=== PATIENT | male | born 1965 | race Caucasian/White ===

== ENCOUNTER 2018-09-19 10:03 | Observation (INO) | payer MEDICAID, SELFPAY ==
[2018-09-19] VITALS (7 sets, daily range): BP systolic 127–161; BP diastolic 85–115; PULSE 79–101; RESP 16–28; TEMP 36.7–37.3; O2SAT 93–98
--- NOTE | 2018-09-19 09:50 | W.ED.GENAD ---
Discharge Plan Discharge Details Chief Complaint: GenMedical Admit Date/Time: 09/19/18 11:57 Admit Provider: Gregoria Manrique Attending Provider: Gregoria Manrique Primary Care Provider: Abelardo Zavala ED Provider: Elizabeth Felix Medical Decision Making Patient is a 53 year old male, brought in via EMS, with c/c of esophageal FB. States that it began last night and was exacerbated this morning after taking a large ibuprofen tablet. This was one hour prior to arrival. Since then, he has had persistent FB sensation and difficulty drinking. Patient is an active smoker, has been a heavy smoker for several years. He states that this issue with swallowing has been progressively been more frequent and bothersome over the past few years. No pain at baseline. Patient has never had this evaluated when not actively having difficulty with FB. Does not have a PCP, have asked for long term care pharmacist to arrange for PCP. Patient also endorsing pain on the right flank, worse with rotatioinal movements. States that the pain migrated to thsi area. Initially began across entire chest 3 weeks ago, a few days later moved to the abdomen then to the right flank. Not worse with food. No pain at rest. No rash. No dysurea or changes in urinary habits. On exam, patient appears anxious. He is occasionally spitting into emesis bag. He is speaking in full sentences with no evidence of respiratory distress. EKG reviewed by Dr. Whittington, NSR rate 96 with no ischemic changes noted. Attempted Effervecent treatment for FB. Discussed risks/benefits of treatment with the patient. This was unsuccessful. Patient had difficulty with the instructions and sounds to have actually held this in his mouth rather than trying to swallow. Spit out mixture. Patient still feels symptomatic. Patient given 1mg IV glucagon without success. Consulted with Dr. Manrique who will bring patient to OR for EGD. Labs reviewed, troponin stil pending. Signfiicant for elevated AST and ALT. UA pending. Dr. Manrique is wondering if the elevated liver enzymes are associated with the right sided back pain, questioning if this may be secondary to gallbladder disease. She is planning for f/u and likely arrange for outpatient US. Patient is not having any RUQ pain at this time. Negative [place]. Troponin <0.05. UA not infected. Patient brought to the OR in stable condiition. HPI General Mode of arrival: EMS. Date/Time Provider Initiated Documentation: 09/19/18 10:08. Limitations to Documentation: no limitations. Information obtained by: patient and RN notes reviewed. HPI Narrative: Patient is a 53 year old male with hx of emphasema, active smoker, presenting today with c/c of FB in throat. States that he choked last night on hamburger. [place] that it had mostly cleared. Took Ibuprofen this morning and felt that the pill then became lodged. Called EMS as he was unable to drink water. Patient reports that this happens frequently. Has approximately 3 choking episodes a week. Reprots that he had to have EGD for food bolus, reports it was completed within the past 5 years. Has been able to speak in full sentences. Denies SOB or difficulty breathing. Patient reports that prior to the pill becoming lodged, he was thinking of going to the ER anyway secondary to pain that he has had for the past 3 weeks. Reprots that 3 weeks ago he began having CP that then migrated to his abdomen and then further migrated to his right flank. Is only endorsing right flank pain at this time. States that it is worse with rotational movement. Denies any trauma. Pain is not exertional. denies dyspnea. No hx of heart disease. No change in bowel or bladder habits. No fevers/chills. No dysurea. Denies penile discharge, denies testicular pain. Has not had any CP sincie initial pain 3 weeks ago, pain is not exertional. No cardiac history. Related Data Home Medications Medication Instructions Recorded Confirmed cyclobenzaprine 10 mg PO Q8H PRN #15 tab 07/12/16 ibuprofen 800 mg PO Q8H PRN #15 tablet 07/12/16 Previous Rx's Medication Instructions Recorded cyclobenzaprine 10 mg PO Q8H PRN #15 tab 07/12/16 ibuprofen 800 mg PO Q8H PRN #15 tablet 07/12/16 Allergies Allergy/AdvReac Type Severity Reaction Status Date / Time No Known Allergies Allergy Unverified 07/12/16 10:24 Review of Systems Constitutional Reports as per HPI, Denies chills, Denies fever(s), Denies headache(s), Denies lethargy and Denies poor appetite Eyes Denies change in vision ENT Denies change in voice, Reports dysphagia (FB), Denies dizziness, Denies headache(s), Denies neck mass, Denies neck pain, Denies sore throat and Denies throat swelling Cardiovascular Reports as per HPI, Denies chest pain, Denies chest pain at rest, Denies chest pain with activity, Denies diaphoresis, Denies leg edema, Denies lightheadedness, Denies radiating jaw, neck or arm pain, Denies palpitations, Denies dyspnea and Denies dyspnea on exertion Respiratory Reports as per HPI, Denies chest congestion, Denies cough, Denies pain on inspiration, Denies pain with cough, Denies dyspnea, Denies dyspnea on exertion and Denies wheezing Gastrointestinal Reports as per HPI, Denies abdominal pain, Reports dysphagia (FB), Denies diarrhea, Denies nausea and Denies vomiting Genitourinary Denies system reviewed and no additional complaints, except as docu (denies change in urinary habits) Musculoskeletal Reports as per HPI, Reports back pain (right sided flank pain) and Denies neck pain Integumentary/Breasts Reports as per HPI and Denies rash Neurologic Reports as per HPI, Denies dizziness and Denies headache(s) Endocrine Denies palpitations Allergic/Immunologic Denies throat swelling and Denies wheezing PFSH Medical History Elevated LFTs (Acute) Esophageal foreign body (Acute) Fracture (healed) treatment follow-up (Acute) GERD (gastroesophageal reflux disease) (Chronic) Smoker in home (Acute) Social History Smoking/Tobacco Use Status: Current every day Alcohol Intake: current Alcohol Intake frequency: a few times a week Drug use: Never Do you feel safe in your relationship?: Yes Exam Const General: cooperative, healthy appearing, no acute distress, well developed and anxious Nutritional Appearance: average body habitus and well nourished Orientation: alert, awake and oriented x3 HENMT Head: normal to inspection Ears: hearing grossly normal bilaterally Face and sinus: normal facial exam and face symmetric Mouth: oral mucosae normal, lip normal, tongue normal, oropharynx normal, moist mucous membranes, no audible dysphonia, no drooling, no muffled voice, no trismus and No restricted motion Teeth and gingiva: dentition normal and gingiva normal Throat: posterior oropharynx normal, tonsils normal and uvula midline Neck Neck: normal visual inspection, full ROM, no lymphadenopathy, no meningeal signs, trachea midline, supple, no anterior neck swelling, nontender and no tracheal deviation Chest Chest: normal inspection of the chest, normal palpation of entire chest wall and no crepitus Resp Effort & Inspection: normal respiratory effort, able to speak in complete sentences and no respiratory distress Auscultation: clear to auscultation bilaterally, no rales, no rhonchi and no wheezes Cardio Rate: regular rate Rhythm: regular rhythm Heart Sounds: S1 normal and S2 normal GI Inspection: normal to inspection, no edema and non-distended Palpation: soft, no hepatosplenomegaly, not firm, no guarding, not rigid and nontender Auscultation: normal bowel sounds Back/Spine/Pelvis Back: CVA tenderness (right) Thoracic/Lumbar Spine: thoracic and lumbar spine normal to inspection Skin General skin exam: no rashes or lesions noted Trauma: no lacerations or abrasions Neuro General: alert, awake and oriented x3 Cognition: normal cognition Speech: speech normal Gait: normal gait Extrem General: normal to inspection, normal capillary refill, no pedal edema, no calf tenderness and normal gait Psych Appearance: grossly normal and well kempt Mental Status: mental status grossly normal Speech and Movement: speech and movement normal
[2018-09-19 10:17] LABS: Abs Immature Grans 0.01 k/cumm (0.0-0.09); Absolute Basophil Count 0.07 k/cumm (0.0-0.2); Absolute Eosinophil Count 0.04 k/cumm (0.0-0.7); Absolute Lymphocyte Count 1.01 k/cumm (1.2-3.4); Absolute Monocyte Count 0.72 k/cumm (0.11-0.7); Absolute Neutrophil Count 4.22 k/cumm (1.2-6.7); Basophils % 1.2; Eosinophils % 0.7; HCT 48.2 % (40.0-50.0); Immature Grans % 0.2; Lymphocytes % 16.6; Mean Corp. HGB Concentration 35.3 g/dL (32.0-36.0); Mean Corpuscular Hemoglobin 33.3 pg (27.0-33.0); Mean Corpuscular Volume 94.5 fL (80-95); Mean Platelet Volume 9.6 fL (8.0-11.0); Monocytes % 11.9; Neutrophils % 69.4; Platelet Count 287 x1000/uL (130-400); White Blood Cell Count 6.07 k/cumm (4.4-10.8)
[2018-09-19 10:30] LABS: ALT 135 U/L (12-78); AST 144 U/L (15-37); Albumin 4.7 g/dL (3.4-5.0); Alkaline Phosphatase 95 U/L (46-116); Anion Gap 18.6 mmol/L (3-11); BUN 8 mg/dL (7-18); Bilirubin, Total 0.7 mg/dL (0.2-1.0); CO2 21.4 mmol/L (21.0-32.0); CREATININE 0.93 mg/dL (0.70-1.30); Calcium 9.6 mg/dL (8.5-10.1); Chloride 99 mmol/L (98-107); Glucose 96 mg/dL (70-100); Lipase 114 U/L (73-393); Potassium 4.3 mmol/L (3.5-5.1); Sodium 139 mmol/L (136-145); Total Protein 8.5 g/dL (6.4-8.2)
[2018-09-19] MEDS: Normal Saline 1,000 ML 1000 ML IV (10:33)
--- NOTE | 2018-09-19 10:35 | W.PM.HP.N ---
Date of service: 09/19/18 Time of Service: 10:35 Assessment and Plan (1) Esophageal foreign body: Current visit: No Status: Acute OR for EGD . Will plan on doing general for airway protection risks: bleeding/infection/perf/asp/ anesthesia He does have R back pain and elevated LFT's. He denies ETOH and may have some liver vs gallbladder issues- will address this as oupt. (2) Elevated LFTs: Current visit: No Status: Acute History of Present Illness Chief Complaint: esophageal foreign body Consults Consult date: 09/19/18 Requesting physician: Elizabeth Felix Narrative: pt was eating hamburger last pm and got stuck in throat. Woke up this am and still having pain in throat and back pain. Took ibuprofen. Now he can't swallow secretions. Has had this happen before adn had to have egd and foreign body removed. Pt gives s/s of choking and swallowing issues. No hx of neck surgery or radiation. no recent wt loss. EKG today was nl. He does not see a doctor or take any home meds. has had mult ortho surgeries for fracture sustained in a fall. He had no problems w/ anesthesia. pt denies etoh/drugs. 1ppd smoker. Review of Systems Review of Systems All systems reviewed & are unremarkable except as noted in HPI and below Constitutional Reports as per HPI, Reports system reviewed and no additional complaints, except as docu, Denies anorexia, Denies chills, Denies difficulty sleeping, Denies fatigue, Denies headache(s), Denies lethargy, Denies malaise, Denies poor appetite, Denies weakness, Denies weight gain and Denies weight loss Comments: cant swallow secretions. chest/back pain. but think this is due to foreign body and esohpagel pain not cardiac. EKG is neg. Eyes Reports as per HPI, Reports system reviewed and no additional complaints, except as docu and Denies change in vision ENT Reports system reviewed and no additional complaints, except as docu, Reports as per HPI, Denies change in voice, Denies dental pain, Denies dysphagia, Denies dizziness, Denies facial pain, Denies headache(s) and Denies odynophagia Cardiovascular Reports as per HPI, Reports system reviewed and no additional complaints, except as docu, Denies chest pain, Denies chest pain with activity, Denies syncope, Denies leg edema and Denies dyspnea Respiratory Reports as per HPI, Reports system reviewed and no additional complaints, except as docu, Denies chest congestion, Denies cough, Denies pain with cough and Denies dyspnea Gastrointestinal Reports as per HPI, Reports system reviewed and no additional complaints, except as docu, Denies abdominal pain, Denies bloating, Denies change in bowel habits, Denies change in stool character, Denies constipation, Denies cramping, Denies dysphagia, Denies early satiety, Denies heartburn, Denies diarrhea, Denies nausea, Denies odynophagia and Denies vomiting Comments: pt not able to swalloe secretions. not vomting or bringin up blood. no hx of head/ neck surgery or xrt. hx of choking on food. mult R flank pain Genitourinary Reports system reviewed and no additional complaints, except as docu Musculoskeletal Reports system reviewed and no additional complaints, except as docu, Reports as per HPI, Denies abnormal gait, Denies arthralgias and Denies muscle weakness Integumentary/Breasts Reports system reviewed and no additional complaints, except as docu, Reports as per HPI, Denies changing lesions, Denies new lesions and Denies jaundice Comments: mult tatoos and piercings. Neurologic Reports system reviewed and no additional complaints, except as docu, Reports as per HPI, Denies abnormal speech, Denies abnormal gait, Denies dizziness, Denies syncope, Denies headache(s), Denies memory loss and Denies weakness Psychiatric Reports system reviewed and no additional complaints, except as docu, Reports as per HPI, Denies change in appetite and Denies memory loss Endocrine Denies fatigue, Denies polydipsia and Denies polyuria Hematologic/Lymphatic Reports system reviewed and no additional complaints, except as docu, Denies easy bleeding and Denies easy bruising Allergic/Immunologic Denies system reviewed and no additional complaints, except as docu, Reports as per HPI and Denies urticaria PFSH Medical History Elevated LFTs (Acute) Esophageal foreign body (Acute) Fracture (healed) treatment follow-up (Acute) GERD (gastroesophageal reflux disease) (Chronic) Smoker in home (Acute) Social History Smoking/Tobacco Use Status: Current every day Alcohol Intake: current Alcohol Intake frequency: a few times a week Drug use: Never Do you feel safe in your relationship?: Yes Meds Home Medications Medication Instructions Recorded Confirmed Type cyclobenzaprine 10 mg PO Q8H PRN #15 tab 07/12/16 Rx ibuprofen 800 mg PO Q8H PRN #15 tablet 07/12/16 Rx Allergies Allergy/AdvReac Type Severity Reaction Status Date / Time No Known Allergies Allergy Unverified 07/12/16 10:24 Exam Const General: cooperative, healthy appearing, comfortable, no acute distress, well developed and well groomed Nutritional Appearance: average body habitus and well nourished Orientation: alert, awake and oriented x3 HENMT Head: normal to inspection, normocephalic and atraumatic Ears: hearing grossly normal bilaterally and external ears normal General nose exam: external nose normal Face and sinus: normal facial exam and sinuses nontender Mouth: oral mucosae normal, lip normal, tongue normal and moist mucous membranes Teeth and gingiva: dentition normal Eyes General: appearance normal, both eyes and all related structures Conjunctivae: conjunctivae normal Sclera: sclerae normal Pupils: PERRL Neck Neck: normal visual inspection and full ROM Chest Chest: normal inspection of the chest Resp Effort & Inspection: normal respiratory effort, able to speak in complete sentences, no cough, no nasal flaring, not tachypneic and no use of accessory muscles Auscultation: clear to auscultation bilaterally, no rales, no rhonchi and no wheezes Cardio Jugular venous pressure: no JVD Rate: regular rate Rhythm: regular rhythm GI Inspection: normal to inspection, no edema and non-distended Palpation: soft, no masses, nontender and No ascites Auscultation: normal bowel sounds Other: mulr R flank pain. no RUQ pain. Skin General skin exam: no rashes or lesions noted Trauma: no lacerations or abrasions Neuro General: alert, oriented x3, oriented, gait normal, moves all extremities, no focal motor deficits and CN's II-XI intact bilaterally Cognition: normal cognition Speech: speech normal Gait: normal gait Motor: muscle tone normal throughout Extrem General: normal to inspection, full ROM and no clubbing, cyanosis or edema Psych Appearance: grossly normal and well kempt Mental Status: mental status grossly normal Speech and Movement: speech and movement normal Affect: normal affect Results Labs : 09/19/18 10:07 09/19/18 10:07 Laboratory Results - last 24 hr 09/19/18 10:07 WBC 6.07 RBC 5.10 Hgb 17.0 Hct 48.2 MCV 94.5 MCH 33.3 H MCHC 35.3 RDW 13.0 Plt Count 287 MPV 9.6 Immature Gran % 0.2 Neutrophils % 69.4 Lymphocytes % 16.6 Monocytes % 11.9 Eosinophils % 0.7 Basophils % 1.2 Absolute Neutrophils 4.22 Absolute Lymphocytes 1.01 L Absolute Monocytes 0.72 H Absolute Eosinophils 0.04 Absolute Basophils 0.07 Last Vital Signs Temp 36.9 C 09/19/18 09:54 Pulse 101 H 09/19/18 09:54 Resp 16 09/19/18 09:54 BP 153/101 H 09/19/18 09:54
[2018-09-19 11:11] LABS: Bilirubin Small (Negative); Blood Negative (Negative); Clarity Clear (Clear); Glucose Negative (Negative); Ketones 15 mg/dL (Negative); Leukocyte Esterase Negative (Negative); Nitrite Negative (Negative); Specific Gravity 1.025 (1.005-1.025); pH 5.5 (5-8)
--- NOTE | 2018-09-19 11:12 | NUR.NOTE ---
pt taken to or by this nurse sbar at bedside to or nurse Nursing Note:
[2018-09-19 11:22] LABS: Bacteria Rare HPF (Negative); Crystals Negative HPF (Negative); Epithelial Cells Rare HPF (Negative); Mucus Moderate (Negative); RBC Negative (0-2); WBC 0-2 HPF (0-5)
[2018-09-19 11:23] LABS: C & S Indicated? No; Casts 10-20 Hyaline LPF (Negative)
[2018-09-19 11:24] LABS: Troponin I < 0.05 ng/mL (0.00-0.06)
--- NOTE | 2018-09-19 11:45 | W.PM.ENDDOP ---
Date of service: 09/19/18 Time of Service: 11:45 Endoscopy Report DATE OF PROCEDURE: 09/19/18 PRE-OP DIAGNOSIS: esoph foreign body POST-OP DIAGNOSIS: other (chronic gerd. upper esophageal stricture ) PROCEDURE: EGD adn esophageal foreign body (pill) removal SURGEON: Gregoria Manrique ANESTHESIA: GETGil ESTIMATED BLOOD LOSS: 0 PATHOLOGY: none sent COMPLICATIONS: None DISPOSITION: PACU INDICATIONS: esoph foreing body PROCEDURE DESCRIPTION: egd
[2018-09-19] MEDS: Pantoprazole 40 MG VIAL IVP (11:55)
[2018-09-19] MEDS: Dexamethasone 10 MG/ML VIAL IVP (12:08)
[2018-09-19] MEDS: Normal Saline 1,000 ML 80 ML IV (12:22)
[2018-09-19] MEDS: Omnipaque 350 MG/ML 100 ML BTL IJ (12:47)
--- NOTE | 2018-09-19 12:53 | DI.CT_ITS ---
SYMPTOMS/DIAGNOSIS: ESOPHAGEAL STRICTURE, H/O SMOKING AND SWALLOWING PROBLEMS CHEST CT: CT examination of the chest was performed with a bolus infusion of 100 cc of Omnipaque 350. Images obtained through the upper abdomen show severe hepatic steatosis. Spleen as visualized is unremarkable in appearance, as are the pancreas, adrenals and kidneys although the inferior portions of these organs are not included on the imaging field. There is a 6 mm in diameter well-circumscribed noncalcified intrapulmonary nodule at the left lung base medially. No other pulmonary nodule, mass or consolidation is seen. There are some subpleural blebs in the lung apices. Tracheobronchial tree appears intact. No mediastinal or hilar adenopathy. Esophagus is unremarkable in appearance throughout its thoracic course. No pleural effusion or pleural-based mass. CONCLUSION: 1. Hepatic steatosis. 2. Incidental 6 mm left basilar pulmonary nodule; follow-up chest CT suggested in six months. CERVICAL CT: CT examination of the cervical region was performed in conjunction with the chest CT with intravenous infusion of 100 cc of Omnipaque 350. No cervical mass or adenopathy seen. Vascular structures appear intact. Visualized brain and intracranial vasculature are unremarkable. Orbital structures appear intact. Temporal bone structures appear intact. Mild mucoperiosteal thickening noted in the maxillary antra. Pharyngeal structures are unremarkable. Superior laryngeal structures appear intact. At the level of the supraglottic larynx, there is a nearly obliterated lumen; no gross associated mass or adenopathy at this level. Vocal cord level appears grossly unremarkable. Epiglottis and aryepiglottic folds appear normal. CONCLUSION: Narrowing of supraglottic larynx of uncertain etiology. No gross mass identified; however, laryngoscopy suggested to evaluate for stricture or mucosal lesion.
--- NOTE | 2018-09-19 13:36 | DI.US_ITS ---
SYMPTOMS/DIAGNOSIS: RIGHT UPPER QUADRANT PAIN, RIGHT LOWER POSTERIOR BACK PAIN, ELEVATED LFTS ABDOMINAL ULTRASOUND: Today's CT showed marked hepatic steatosis and there is mildly echogenic and mildly heterogenous appearance of hepatic parenchyma without evidence of a focal lesion. The liver is mildly enlarged. There is no evidence of cholelithiasis. No gallbladder wall thickening is seen. No biliary dilatation is seen. The kidneys appear normal with no evidence of renal mass, hydronephrosis or nephrolithiasis. Common hepatic duct is at the upper limits of normal at 8 mm. The pancreas poorly visualized. Abdominal aorta and IVC are of normal diameter. CONCLUSION: 1. Hepatic steatosis. 2. No evidence of cholelithiasis. 3. Question mild dilatation of common hepatic duct; if there is clinical suspicion of common duct obstruction or elevated bilirubin, additional evaluation with MRCP could be obtained to evaluate the possibility of obstructing lesion.
[2018-09-19] MEDS: Ketorolac 15 MG/ML VIAL IVP (15:03)
[2018-09-19] MEDS: Normal Saline Flush 10 ML SYR IVP ×2 (15:03→16:38)
[2018-09-19] MEDS: MORPHine 2 MG/ML SYR IVP (16:37)
[2018-09-19] MEDS: Sucralfate 1 GM TAB PO (16:37)
--- NOTE | 2018-09-19 19:02 | DSE_ITS ---
Date of service: 09/19/18 Time of Service: 19:02 DS: Diagnosis Discharge Diagnosis (1) Esophageal foreign body: Status: Acute (2) Elevated LFTs: Status: Acute Discharge Plan Disposition Patient Disposition: HOME Condition: Stable Discharge Details Chief Complaint: GenMedical Reason For Visit: ESOPH STRICTURE Admit Date/Time: 09/19/18 11:57 Admit Provider: Gregoria Manrique Attending Provider: Gregoria Manrique Primary Care Provider: Abelardo aZvala [facility]: pt came to ED w/ esophageal FB. He was found to have a ibuporfen tab in upper esoph. CT shows it is supraglotic. It is a signif stricture. He is sable to tolerate water/pudding. Home Meds and New Rx's Prescriptions: New sucralfate 100 mg/mL suspension 1 g PO AC & HS Qty: 100 RF: 0 sucralfate [Carafate] 100 mg/mL suspension 10 ml PO QID Qty: 420 RF: 0 Discontinued ibuprofen 800 MG tablet 800 mg PO Q8H PRN (Reason: Pain) Qty: 15 RF: 0 cyclobenzaprine 10 MG tablet 10 mg PO Q8H PRN (Reason: Muscle Spasm) Qty: 15 RF: 0 Discharge Instructions Additional Instructions: no pills! -use children tylenol elixer 20cc po 6hr prns back pain -full liquid diet. purreed/mashed foods. pudding/smoothie/mashed potatoes/pur eed food/baby food -activity as gautam -try to limit smoking/alcohol/caffeine intake -EGD and dilation next -return to ED if develop foreign body sensation in throat. Activity:: Activity as Tolerated Equipment/Supplies:: No Equipment Needed Diet:: purreed Exam Const General: cooperative, healthy appearing, comfortable, no acute distress, well developed and well groomed Nutritional Appearance: average body habitus and well nourished Orientation: alert, awake and oriented x3 HENMT Head: normal to inspection, normocephalic and atraumatic Ears: hearing grossly normal bilaterally and external ears normal General nose exam: external nose normal Face and sinus: normal facial exam and sinuses nontender Mouth: oral mucosae normal, lip normal, tongue normal and moist mucous membranes Teeth and gingiva: dentition normal Eyes General: appearance normal, both eyes and all related structures Conjunctivae: conjunctivae normal Sclera: sclerae normal Pupils: PERRL Neck Neck: normal visual inspection and full ROM Chest Chest: normal inspection of the chest Resp Effort & Inspection: normal respiratory effort, able to speak in complete sentences, no cough, no nasal flaring, not tachypneic and no use of accessory muscles Auscultation: clear to auscultation bilaterally, no rales, no rhonchi and no wheezes Cardio Jugular venous pressure: no JVD Rate: regular rate Rhythm: regular rhythm GI Inspection: normal to inspection, no edema and non-distended Palpation: soft, no masses, nontender and No ascites Auscultation: normal bowel sounds Skin General skin exam: no rashes or lesions noted Trauma: no lacerations or abrasions Neuro General: alert, oriented x3, oriented, gait normal, moves all extremities, no focal motor deficits and CN's II-XI intact bilaterally Cognition: normal cognition Speech: speech normal Gait: normal gait Motor: muscle tone normal throughout Extrem General: normal to inspection, full ROM and no clubbing, cyanosis or edema Psych Appearance: grossly normal and well kempt Mental Status: mental status grossly normal Speech and Movement: speech and movement normal Affect: normal affect DS: Data Vitals/I&O Vitals and I&O: Vital Signs Temperature 37.3 C 09/19/18 15:51 Temperature Source Tympanic 09/19/18 15:51 Pulse 79 09/19/18 15:51 Pulse Rhythm Regular 09/19/18 15:52 Respiratory Rate 18 09/19/18 15:51 Respiratory Effort Non-Labored 09/19/18 15:52 Respiratory Depth Normal 09/19/18 15:52 Respiratory Pattern Normal 09/19/18 15:52 Blood Pressure 157/90 H 09/19/18 15:51 Pulse Oximetry 96 09/19/18 15:51 Respiratory End-tidal CO2 30 09/19/18 12:05 Oxygen Delivery Method Room Air 09/19/18 15:51 Oxygen Flow Rate 0 09/19/18 15:51 Pain Level 8 09/19/18 16:37 Intake & Output 09/18/18 09/19/18 09/19/18 23:59 11:59 23:59 Intake Total 300 / 1476 1176 / 1476 Balance 300 / 1476 1176 / 1476 Weight 77.111 kg Intake: IV 300 / 376 76 / 376 Oral 1100 / 1100 Other: Urine Color Yellow Urine Appearance Clear Urine Odor Normal Comment Pt voiding ad mejia in toilet; denies sx. Emesis Description None None Voiding Methods Toilet Labs on day of discharge: Labs from last 24 hours 09/19/18 09/19/18 09/19/18 11:02 10:07 10:07 WBC 6.07 RBC 5.10 Hgb 17.0 Hct 48.2 MCV 94.5 MCH 33.3 H MCHC 35.3 RDW 13.0 Plt Count 287 MPV 9.6 Immature Gran % 0.2 Neutrophils % 69.4 Lymphocytes % 16.6 Monocytes % 11.9 Eosinophils % 0.7 Basophils % 1.2 Absolute Neutrophils 4.22 Absolute Lymphocytes 1.01 L Absolute Monocytes 0.72 H Absolute Eosinophils 0.04 Absolute Basophils 0.07 Sodium Potassium Chloride Carbon Dioxide Anion Gap BUN Creatinine Estimated GFR/1.73 m2 Glucose Calcium Total Bilirubin AST ALT Alkaline Phosphatase Troponin I < 0.05 Total Protein Albumin Lipase Urine Color Faustina Urine Clarity Clear Urine pH 5.5 Ur Specific Pipestem 1.025 Urine Protein 30 H Urine Ketones 15 H Urine Blood Negative Urine Nitrite Negative Urine Bilirubin Small H Urine Urobilinogen 1.0 H Ur Leukocyte Esterase Negative Urine RBC Negative Urine WBC 0-2 Ur Epithelial Cells Rare Urine Crystals Negative Urine Bacteria Rare Urine Casts 10-20 hyaline Urine Mucus Moderate Ur Culture Indicated? No Urine Glucose Negative 09/19/18 10:07 WBC RBC Hgb Hct MCV MCH MCHC RDW Plt Count MPV Immature Gran % Neutrophils % Lymphocytes % Monocytes % Eosinophils % Basophils % Absolute Neutrophils Absolute Lymphocytes Absolute Monocytes Absolute Eosinophils Absolute Basophils Sodium 139 Potassium 4.3 Chloride 99 Carbon Dioxide 21.4 Anion Gap 18.6 H BUN 8 Creatinine 0.93 Estimated GFR/1.73 m2 >= 60.00 Glucose 96 Calcium 9.6 Total Bilirubin 0.7 AST 144 H ALT 135 H Alkaline Phosphatase 95 Troponin I Total Protein 8.5 H Albumin 4.7 Lipase 114 Urine Color Urine Clarity Urine pH Ur Specific Pipestem Urine Protein Urine Ketones Urine Blood Urine Nitrite Urine Bilirubin Urine Urobilinogen Ur Leukocyte Esterase Urine RBC Urine WBC Ur Epithelial Cells Urine Crystals Urine Bacteria Urine Casts Urine Mucus Ur Culture Indicated? Urine Glucose PFSH Medical History Elevated LFTs (Acute) Esophageal foreign body (Acute) Fracture (healed) treatment follow-up (Acute) GERD (gastroesophageal reflux disease) (Chronic) Smoker in home (Acute) Social History Smoking/Tobacco Use Status: Current every day Alcohol Intake: current Alcohol Intake frequency: a few times a week Drug use: Never Do you feel safe in your relationship?: Yes
--- NOTE | 2018-09-22 10:58 | ENDO_ITS ---
DATE OF PROCEDURE: September 19, 2018 PREOPERATIVE DIAGNOSIS: Esophageal foreign body. POSTOPERATIVE DIAGNOSIS: Chronic esophageal reflux with esophagitis and upper esophageal stricture. SURGEON: Gregoria Manrique D.O. ANESTHESIA: General. ESTIMATED BLOOD LOSS: None. CONDITION: The patient tolerated the procedure well without complication. INDICATION FOR PROCEDURE: Mr. Leger is a 53-year-old male who presented to the E.R. with esophageal foreign body sensation and is unable to swallow his secretions. This has happened to him in the past. He is being taken for emergent endoscopy and foreign body removal. Informed consent was obtained explaining risks and benefits of the procedure including but not limited to bleeding, infection, perforation, aspiration and complications from the anesthesia. PROCEDURE DESCRIPTION: The patient was brought to the surgical suite and placed in the supine position. Anesthesia is administered per the Department of Anesthesia. A bite block is placed. A time-out is performed. The previously-lubricated Olympus scope is inserted into the pharynx and in the upper esophagus he does have what appears to be a tablet lodged in the upper esophagus. This is removed in piecemeal fashion and eventually it breaks up and we were able to wash it down. There is a tight stricture there and I am not able to pass the scope. his esophagus shows signs of chronic irritation and reflux, as well as acute inflammation. Biopsy is not taken of this area. The procedure is then abandoned. There are no signs of perforation. The patient tolerated the procedure well without complication and transferred to the recovery room in stable condition. He will be given IV Protonix and steroids and a CT scan will be ordered and we will see and evaluate his swallowing status later on this evening. Pt would prefer to go home today. Thank you for allowing me to participate in the care of this patient. cc: Abelardo Zavala M.D.
== END 2018-09-19 19:44 | disposition home or self-care (01) ==
LOC: ER 11:11 → SUR 11:13 → MS 13:33
PROVIDERS: Admitting Provider Surgery; Emergency Provider Physician Assistant; PCP Family Medicine; Visit Provider Surgery
PROC: 0DJ68ZZ Inspection of Stomach, Via Natural or Artificial Opening Endoscopic (ICD-10-PCS; CPT 43235; principal; 2018-09-19 10:15)
DX: T18.198A Other foreign object in esophagus causing other injury, initial encounter (principal); K22.2 Esophageal obstruction; K21.0 Gastro-esophageal reflux disease with esophagitis; R94.5 Abnormal results of liver function studies; F17.210 Nicotine dependence, cigarettes, uncomplicated
CPT/HCPCS: 43247; 36415; 70491; 80053; 83690; 93005; 96361; 96374; 99222; 99239; 99285; 71260; 76700; 81003; 81015; 84484; 85025; 93010; G0378; J1100; J1610; J1885; J2270; J2405; J3490

== ENCOUNTER 2018-09-24 06:05 | Day surgery (SDC) | payer MEDICAID, SELFPAY ==
[2018-09-24] VITALS (7 sets, daily range): BP systolic 107–136; BP diastolic 60–96; PULSE 59–90; RESP 15–25; TEMP 36.5–36.9; O2SAT 93–99
[2018-09-24] MEDS: Lactated Ringers 1,000 ML 80 ML IV (06:52)
--- NOTE | 2018-09-24 08:30 | STOM_PTH ---
PATIENT: Harjit Leger LOC: YE U#:[id number] AGE/SX: 53/M ROOM: RE09/24/[address]: Gregoria Manrique : 1965 BED: DIS: 09/24/2018 SPEC #: [id number] RECD: 09/24/18 12:37 STATUS: NEY REQ #: [id number] FARRAH: 09/24/18 08:[address]: Gregoria Manrique DEPT: Surgical Specimen RECD BY: Chela Tilley ENTERED: 09/24/18 12:38 SP TYPE: STOMACH OTHR DR: Abelardo Zavala MD Tissues: 1 - BIOPSY BOWEL 2 - STOMACH BIOPSY 3 - STOMACH BIOPSY 4 - ESOPHAGUS BIOPSY Procedures: GROSS AND MICRO LEVEL 4 Comments: [id number]
--- NOTE | 2018-09-24 08:49 | W.PM.DSUDISC ---
Discharge Plan Disposition Patient Disposition: HOME Condition: Good Discharge Details Attending Provider: Gregoria Manrique Primary Care Provider: Abelardo Zavala Home Meds and New Rx's Prescriptions: New Protonix [address] for susp in packet 40 mg PO DAILY Qty: 30 RF: 12 sucralfate [Carafate] 1 gram tablet 1 gm PO QACHS Qty: 120 RF: 12 Discontinued sucralfate [Carafate] 100 mg/mL suspension 10 ml PO QID Qty: 420 RF: 0 sucralfate [Carafate] 1 gram tablet 1 gm PO QACHS Qty: 30 RF: 0 Discharge Instructions Additional Instructions: Findings: severe gastritis/esophagitis esophageal stricture no asa/nsaids Continue with lifestyle modifications: no alcohol, tobacco products, Aspirin or NSAID's (ibuprofen, Motrin, Naprosyn, aleve, etc). Try to limit: soda pop/any carbonated beverages, caffeine (including tea & chocolate), and acidic foods, (tomatoes, citrus, onions, peppermints) spicy or fried/fatty foods. Do not lie down for 30 minutes after eating, and do not eat 2 hours prior to bedtime. Avoid wearing tight fitting clothing/ belts. Follow up: in 3 wks repeat dilation on Oct 23. Please call if you develop: fevers >101.5 Nausea or Vomiting Abdominal pain that is not transient DAY SURGERY UNIT POST COLONOSCOPY INSTRUCTIONS 1. Because there will be medication in your system for the next 24 hours, you may feel a little sleepy. Your coordination will be affected. Therefore: a. Do not drive or operate dangerous equipment for 24 hours. b. Do not drink alcohol beverages for 24 hours (not even beer). c. Plan to go home and rest for the day. 2. Generally there are no restrictions on your activity after a day or so has gone by, but you may feel a bit fatigued for a few days. 3 Liquids only for the next 24 hrs. Slowly work up to soft foods. 4. After surgery, you may feel pain or discomfort. This should be only transient, but if it persists please contact your doctor. 5. If there are any questions regarding the findings of your procedure, please feel free to contact your doctor. 6. If you are unable to contact your doctor with a problem, contact the hospital at [phone]. 7. Continue all your regular medications unless directed otherwise. I understand the above instructions and have no questions. Signature of Patient or Responsible Adult Escort Date/Time Name of Responsible Adult Escort Signature of Nurse Date/Time Stand Alone Forms: Mauro Templeton (DSU) Activity:: Activity as Tolerated Diet:: liquids only x 24 hrs. than soft/purreed diet Discharge Orders Discharge Orders: Discharge Order (Routine); Ordered 09/24/18 Ordered By: Gregoria Manrique DS: Diagnosis Discharge Diagnosis (1) Gastritis and gastroduodenitis: Status: Acute (2) Esophagitis determined by endoscopy: Status: Acute (3) Fatty liver: Status: Acute (4) Benign esophageal stricture: Status: Acute
--- NOTE | 2018-09-24 09:05 | W.PM.ENDDOP ---
Date of service: 09/24/18 Time of Service: 09:05 Endoscopy Report DATE OF PROCEDURE: 09/24/18 PRE-OP DIAGNOSIS: esophageal stricture POST-OP DIAGNOSIS: other (esophagitis/gastris/duodenitis) PROCEDURE: egd w/ Bx and dilation balloon SURGEON: Gregoria Manrique ANESTHESIA: GETGil ESTIMATED BLOOD LOSS: 2 PATHOLOGY: other COMPLICATIONS: None DISPOSITION: PACU INDICATIONS: E. stricture- symptomatic FINDINGS: stricture and severe gastritis PROCEDURE DESCRIPTION: dictated
--- NOTE | 2018-09-24 12:13 | ENDO_ITS ---
Date: September 24, 2018 PREOPERATIVE DIAGNOSIS: Esophageal stricture. POSTOPERATIVE DIAGNOSIS: Same. Esophagitis, gastritis and duodenitis. TITLE OF PROCEDURE: EGD with biopsy and esophageal dilation. ANESTHESIA: General. EBL: Less than 5 cc. COMPLICATIONS: None. INDICATIONS: Mr. Leger is a 53 y/o male who presented to the E.D. last week with esophageal foreign body. He is here today for follow up EGD and dilation. He still continues to have problems with dysphagia and choking and being intolerant of solid foods. He is seen in preop and consent obtained. Risks include bleeding, infection, perforation, aspiration, and complications from anesthesia. PROCEDURE: The patient is brought to the operative suite and placed in position. Anesthesia was administered per the director systems. He did receive IV Protonix and steroids. Time out was performed. The esophagoscope was lubricated and inserted through the oropharynx and I am able to cannulate into the upper esophagus. The scope was passed down into the esophagus. There is signs of chronic irritation and possible Sharif's at the GE junction. There is no hiatal hernia. The scope is passed into the stomach. He has signs of severe gastritis with pretty much diffuse redness and signs of generalized hemorrhage and old blood; no active bleeding. The pylorus is freely patent. The duodenum shows signs of chronic irritation as well in the first and second portions. Biopsy is taken of the duodenum, antrum, greater curvature and GE junction. All specimens are retrieved. No bleeding noted. He has no varices. Again, he does have a stricture in the pharynx/upper esophageal region. We were able to cannulate this today. There is no sign of any tumors. The 10-11-12 balloon is chosen for dilation. Two sequential dilations are done of 2 minutes each. The first at 10 mm and the second at 11 mm. There is no sign of any perforation post procedure. The scope is then withdrawn and the patient is woken up and taken to the recovery room. The patient has no complications. He will need to come in for serial dilations.
== END 2018-09-24 10:30 | disposition home or self-care (01) ==
PROVIDERS: PCP Family Medicine; Visit Provider Surgery
PROC: 0D758ZZ Dilation of Esophagus, Via Natural or Artificial Opening Endoscopic (ICD-10-PCS; CPT 43249; principal; 2018-09-24 08:00)
DX: K29.80 Duodenitis without bleeding (principal); K31.89 Other diseases of stomach and duodenum; K21.0 Gastro-esophageal reflux disease with esophagitis; K22.2 Esophageal obstruction
CPT/HCPCS: 43249; 43239; 88305; J2250

== ENCOUNTER 2018-10-16 06:53 | Day surgery (SDC) | payer MEDICAID, SELFPAY ==
[2018-10-16 07:28] VITALS: BP 130/67; PULSE 85; RESP 16; TEMP 36.6; O2SAT 98
--- NOTE | 2018-10-16 08:06 | NUR.NOTE ---
#20 in left hand started after right IV infiltrated. By Jose Corrales RN
[2018-10-16] MEDS: Lactated Ringers 1,000 ML 80 ML IV ×2 (08:10→09:17)
--- NOTE | 2018-10-16 09:49 | W.PM.ENDDOP ---
Date of service: 10/16/18 Time of Service: 09:49 Endoscopy Report DATE OF PROCEDURE: 10/16/18 PRE-OP DIAGNOSIS: esophageal stricture benign. secondary to gerd POST-OP DIAGNOSIS: same PROCEDURE: dilation up to 12F SURGEON: Gregoria Yeung ANESTHESIA: GETA ESTIMATED BLOOD LOSS: 0 PATHOLOGY: none sent COMPLICATIONS: None DISPOSITION: PACU PROCEDURE DESCRIPTION: INDICATIONS: Informed consent was obtained, explaining the risks and benefits of the procedure, including but not limited to bleeding, infection, perforation, aspiration, complications from the anesthesia. DESCRIPTION OF PROCEDURE: The patient was brought to the endoscopy suite and placed in left lateral decubitus position. IV and topical anesthesia was administered per the Department of Anesthesia, with constant monitoring of all vital signs. The previously lubricated Olympus scope was inserted into the orophayrnx and passed down into the esophagus. I am able to pass the scope throught the upper esophagus today. The scope is passed into the stomach and through the pylorus- which is freely patent. The duodenum is normal. The scope is passed into the second portion of the duodenum. Bile is visualized and appears grossly normal. There is still some mild changes from gastritis noted in the body of the stomach. (Pt is on medications at this time). However, his stomach is signif improved from his last scope. the upper esophagus is Dilated 10 -12F. The cords appeared normal. The patient tolerated the procedure well and transferred to the recovery room in stable condition. Apt was made for repeat ensodcopy and dilation in Nov. GREGORIA YEUNG D.O.
[2018-10-16 09:52] VITALS: BP 105/59; PULSE 61; RESP 21; TEMP 36.8; O2SAT 100
[2018-10-16 09:57] VITALS: BP 129/75; PULSE 71; RESP 17; TEMP 36.8; O2SAT 100
[2018-10-16 10:02] VITALS: BP 129/85; PULSE 68; RESP 13; TEMP 36.8; O2SAT 100
--- NOTE | 2018-10-16 10:10 | W.PM.DSUDISC ---
Discharge Plan Disposition Patient Disposition: HOME Condition: Good Discharge Details Reason For Visit: esphageal dilation Attending Provider: Gregoria Manrique Primary Care Provider: Abelardo Zavala Home Meds and New Rx's Prescriptions: Continued ranitidine HCl 15 mg/mL syrup 300 mg PO BID Qty: 480 RF: 12 sucralfate [Carafate] 1 gram tablet 1 gm PO QACHS Qty: 120 RF: 12 Discharge Instructions Additional Instructions: Findings: bengin stricture dilation completed Follow up:Repeat dilation in 4 wks time Continue medicatons and on soft diet Please call if you develop: fevers >101.5 Nausea or Vomiting Abdominal pain that is not transient DAY SURGERY UNIT POST COLONOSCOPY INSTRUCTIONS 1. Because there will be medication in your system for the next 24 hours, you may feel a little sleepy. Your coordination will be affected. Therefore: a. Do not drive or operate dangerous equipment for 24 hours. b. Do not drink alcohol beverages for 24 hours (not even beer). c. Plan to go home and rest for the day. 2. Generally there are no restrictions on your activity after a day or so has gone by, but you may feel a bit fatigued for a few days. 3 After you arrive home you may have a light meal and return to a normal diet as you can tolerate it without feeling sick to your stomach. 4. After surgery, you may feel pain or discomfort. This should be only transient, but if it persists please contact your doctor. 5. If there are any questions regarding the findings of your procedure, please feel free to contact your doctor. 6. If you are unable to contact your doctor with a problem, contact the hospital at [phone]. 7. Continue all your regular medications unless directed otherwise. I understand the above instructions and have no questions. Signature of Patient or Responsible Adult Escort Date/Time Name of Responsible Adult Escort Signature of Nurse Date/Time Activity:: no strenuous activity x 24 hrs Diet:: cl liq x 24 hrs. than resume soft diet Discharge Orders Discharge Orders: Discharge Order (Routine); Ordered 10/16/18 Ordered By: Gregoria Manrique DS: Diagnosis Discharge Diagnosis (1) Benign esophageal stricture: Status: Acute (2) GERD (gastroesophageal reflux disease): Status: Chronic
[2018-10-16 10:39] VITALS: BP 128/72; PULSE 66; RESP 18; TEMP 37; O2SAT 96
== END 2018-10-16 10:50 | disposition home or self-care (01) ==
PROVIDERS: PCP Family Medicine; Visit Provider Surgery
PROC: 0D758ZZ Dilation of Esophagus, Via Natural or Artificial Opening Endoscopic (ICD-10-PCS; CPT 43249; principal; 2018-10-16 08:30)
DX: K22.2 Esophageal obstruction (principal); K21.9 Gastro-esophageal reflux disease without esophagitis
CPT/HCPCS: 43249; J1100; J2405

== ENCOUNTER 2018-11-17 05:58 | Day surgery (SDC) | payer MEDICAID, SELFPAY ==
[2018-11-17 06:31] VITALS: BP 143/98; PULSE 78; RESP 18; TEMP 36.7; O2SAT 97
[2018-11-17] MEDS: Lactated Ringers 1,000 ML 80 ML IV (06:44)
[2018-11-17 08:04] VITALS: BP 114/59; PULSE 84; RESP 23; TEMP 36.4; O2SAT 100
--- NOTE | 2018-11-17 08:07 | W.PM.OP ---
Date of service: 11/17/18 Time of Service: 08:08 Operative Note Operative Note DATE OF PROCEDURE: 11/17/18 PRE-OP DIAGNOSIS: benign esophageal stricture/esophagitis POST-OP DIAGNOSIS: same PROCEDURE: egd and dilaton SURGEON: Gregoria Manrique ANESTHESIA: GETA ESTIMATED BLOOD LOSS: 1 PATHOLOGY: none sent COMPLICATIONS: None Procedure Description: dictated
[2018-11-17 08:09] VITALS: BP 154/95; PULSE 79; RESP 16; TEMP 36.4; O2SAT 98
--- NOTE | 2018-11-17 08:09 | W.PM.DSUDISC ---
Discharge Plan Disposition Patient Disposition: HOME Condition: Good Discharge Details Reason For Visit: esophageal dilation Attending Provider: Gregoria Manrique Primary Care Provider: Abelardo Zavala Home Meds and New Rx's Prescriptions: Continued ranitidine HCl 15 mg/mL syrup 300 mg PO BID Qty: 480 RF: 12 sucralfate [Carafate] 1 gram tablet 1 gm PO QACHS Qty: 120 RF: 12 Discharge Instructions Additional Instructions: liquids x 24hrs than can return to soft diet cont same medications Continue with lifestyle modifications: no alcohol, tobacco products, Aspirin or NSAID's (ibuprofen, Motrin, Naprosyn, aleve, etc), soda pop/any carbonated beverages, caffeine (including tea & chocolate), and acidic foods, (tomatoes, citrus, onions, peppermints) spicy or fried/fatty foods. Do not lie down for 30 minutes after eating, and do not eat 2 hours prior to bedtime. Avoid wearing tight fitting clothing/ belts Repeat dilation on 12/15. (than will go to every other month) Activity:: no strenuous acitvity x 24 hrs Diet:: cl liq x 24 hrs than return to soft diet Discharge Orders Discharge Orders: Discharge Order (Routine); Ordered 11/17/18 Ordered By: Gregoria Manrique DS: Diagnosis Discharge Diagnosis (1) Benign esophageal stricture: Status: Acute (2) Gastritis and gastroduodenitis: Status: Acute
[2018-11-17 08:14] VITALS: BP 139/90; PULSE 71; RESP 15; TEMP 36.4; O2SAT 96
[2018-11-17 08:19] VITALS: BP 135/81; PULSE 70; RESP 18; TEMP 36.4; O2SAT 96
[2018-11-17 08:55] VITALS: BP 126/85; PULSE 74; RESP 18; TEMP 36.6; O2SAT 95
--- NOTE | 2018-11-17 10:35 | ROE_ITS ---
DATE OF PROCEDURE: November 17, 2018 PREOPERATIVE DIAGNOSIS: Benign esophageal stricture. POSTOPERATIVE DIAGNOSIS: Benign esophageal stricture. PROCEDURE: EGD and dilation. SURGEON: Gregoria Manrique D.O. ANESTHESIA: General. ESTIMATED BLOOD LOSS: < 1 cc CONDITION: The patient tolerated the procedure well without complication. INDICATION FOR PROCEDURE: Mr. Leger is a 53-year-old male who is well-known to me. He has a his tory of benign esophageal stricture and is here today for repeat dilation. Informed consent was obta ined explaining risks and benefits of the procedure including but not limited to bleeding, infection, perforation, aspiration and complications from the anesthesia. PROCEDURE: The patient is brought to the surgical suite and general anesthesia is administered per [facility] Department of Anesthesia. The patient is prepped and draped in the usual sterile fashion. A bite block is placed. Time-out is performed. A previously-lubricated EGD scope is then inserted in the oropharynx and passed in the esophagus. The area of the stricture is in the upper esophagus. He has had excellent results from dilation and he is actually at about a 17 [place] today and the scope easi ly passes down. Gastric mucosa looks better. There is minimal redness and no bleeding or masses not ed. The pylorus is freely patent. The EGD scope is then retracted back into the upper esophagus and dilation is carried out x2 with an 18 [place] balloon at two minutes each session. There is some sli ght irritation of the esophagus. There is no bleeding noted. The scope is then withdrawn. The wilma ent is woken back up and taken to same-day surgery. He tolerated the procedure well. We will schedu le him for a repeat dilation with general anesthesia on 12/15/18. He does not tolerate dilations with out general anesthesia. cc: Abelardo Zavala M.D.
== END 2018-11-17 09:00 | disposition home or self-care (01) ==
PROVIDERS: PCP Family Medicine; Visit Provider Surgery
PROC: 0D758ZZ Dilation of Esophagus, Via Natural or Artificial Opening Endoscopic (ICD-10-PCS; CPT 43249; principal; 2018-11-17 07:30)
DX: K22.2 Esophageal obstruction (principal)
CPT/HCPCS: 43249; J1100; J2405; J3010

== ENCOUNTER 2018-12-15 06:04 | Day surgery (SDC) | payer MEDICAID, SELFPAY ==
[2018-12-15 06:23] VITALS: BP 140/100; PULSE 78; RESP 16; TEMP 36.6; O2SAT 98
[2018-12-15] MEDS: Lactated Ringers 1,000 ML 80 ML IV (06:48)
--- NOTE | 2018-12-15 07:16 | W.PREOPHP ---
Documented by User: HEATHER White 12/15/18 07:21 Date of service: 12/15/18 Time of Service: 07:16 Assessment and Plan Assessment and plan (1) Benign esophageal stricture: Status: Acute Assessment and plan: A// Patient denies any changes in his health since last seen in early Nov. Discussed Upper endoscopy procedure. He has been NPO since midnight. Discussed possible complications of the procedure to include bleeding, pain, perforation, missed small lesion/polyp/ulcers, sore throat, aspiration and adverse reaction to the medications or sedation. Questions were answered to patient\[id number] satisfaction. No guarantees were implied or given. P// EGD with dilation with Dr. Manrique. History of Present Illness History of Present Illness Chief Complaint: Esophageal stricture Narrative: 53 y/o male presents for repeat EGD with dilation. He was last seen on 11/17 for removal of an esophageal foreign body and at that time he had his esophagus dilated at that time. He reports that since that time, he has had no difficulty swallowing. He denies having any chest pain, palpitations, dyspnea or dyspnea with exertion. He denies any changes in his health since he was last seen on 11/17. Review of Systems Constitutional Constitutional: Denies chills, Denies fever(s), Denies frequent falls, Denies night sweats and Denies weight loss Eyes Eyes: Denies loss of vision ENT Ears, Nose, Mouth, and Throat: Denies abnormal hearing, Denies dysphagia, Denies hearing loss, Denies nasal congestion and Denies neck pain Cardiovascular Cardiovascular: Denies chest pain at rest, Denies chest pain with activity, Denies syncope, Denies dyspnea, Denies dyspnea on exertion and Denies paroxysmal nocturnal dyspnea Respiratory Respiratory: Denies cough, Denies dyspnea and Denies dyspnea on exertion Gastrointestinal Gastrointestinal: Denies abdominal pain, Denies melena, Denies hematochezia, Denies change in bowel habits, Denies constipation, Denies dysphagia and Denies diarrhea Genitourinary Genitourinary: Denies urinary frequency, Denies urinary hesitancy and Denies urinary urgency Musculoskeletal Musculoskeletal: Denies neck pain Integumentary/Breasts Skin/Breast: Denies bleeding lesions, Denies non-healing lesions, Denies rash and Denies unusual bruising Neurologic Neurologic: Denies abnormal hearing, Denies syncope, Denies frequent falls and Denies loss of vision Hematologic/Lymphatic Hematologic/Lymphatic: Denies easy bleeding and Denies easy bruising PFSH Social History Smoking/Tobacco Use Status: Current every day Tobacco Type: cigarettes Smoking packs per day: 1 Smoking cigarettes per day: 20.0 Years smoked: 35 Smoking pack-years: 35.00 Tobacco: How many years used: 35 Alcohol Intake: current Alcohol Intake frequency: a few times a week Alcohol type: beer Drug use: Daily Substance use type: marijuana Do you feel safe at home: Yes Do you feel safe in your relationship?: Yes Meds Home Medications and Allergies Home Medications Medication Instructions Recorded Confirmed Type sucralfate [Carafate] 1 gm PO QACHS #120 tab 09/24/18 12/15/18 Rx ranitidine HCl 15 mg/mL oral syrup 300 mg PO BID #480 ml 09/26/18 12/15/18 Rx Allergies Allergy/AdvReac Type Severity Reaction Status Date / Time No Known Allergies Allergy Unverified 10/16/18 07:26 Exam Const General: cooperative, healthy appearing and no acute distress Orientation: alert and oriented x3 HENMT Head: normal to inspection, no abrasions and no raccoon eyes Ears: hearing grossly normal bilaterally General nose exam: external nose normal and no nasal discharge noted Resp Effort & Inspection: normal respiratory effort, no audible wheezes and no cough Auscultation: clear to auscultation bilaterally Cardio Jugular venous pressure: no JVD Rate: regular rate Rhythm: regular rhythm Heart Sounds: S1 normal, S2 normal, no click and no murmurs GI Inspection: normal to inspection and non-distended Palpation: soft, no guarding and nontender Auscultation: normal bowel sounds Skin General skin exam: no rashes or lesions noted Neuro General: alert, oriented x3 and gait normal Cognition: normal cognition Speech: speech normal Results Last Vital Signs Temp 36.6 C 12/15/18 06:23 Pulse 78 12/15/18 06:23 Resp 16 12/15/18 06:23 BP 140/100 H 12/15/18 06:23 Pulse Ox 98 12/15/18 06:23 Documented by User: Gregoria Manrique DO 12/15/18 08:12 Assessment and Plan Assessment and plan (1) Benign esophageal stricture: Status: Acute (2) Gastritis and gastroduodenitis: Status: Acute Assessment and plan: pt seen and examined agree w/ above pt stopped talking his zantac b/c of cancer possibility History of Present Illness Consults Consult date: 12/15/18 Narrative: pt is here today for dilation. He has a stricture from chronic reflux. It appears from his shaking and the odor about him- that he has started drinking ETOH again. [facility] Social History Smoking/Tobacco Use Status: Current every day Tobacco Type: cigarettes Smoking packs per day: 1 Smoking cigarettes per day: 20.0 Years smoked: 35 Smoking pack-years: 35.00 Tobacco: How many years used: 35 Alcohol Intake: current Alcohol Intake frequency: a few times a week Alcohol type: beer Drug use: Daily Substance use type: marijuana Do you feel safe at home: Yes Do you feel safe in your relationship?: Yes Meds Home Medications and Allergies Home Medications Medication Instructions Recorded Confirmed Type sucralfate [Carafate] 1 gm PO QACHS #120 tab 09/24/18 12/15/18 Rx ranitidine HCl 15 mg/mL oral syrup 300 mg PO BID #480 ml 09/26/18 12/15/18 Rx Allergies Allergy/AdvReac Type Severity Reaction Status Date / Time No Known Allergies Allergy Unverified 10/16/18 07:26
[2018-12-15 08:12] VITALS: BP 164/86; PULSE 67; RESP 16; TEMP 37; O2SAT 97
--- NOTE | 2018-12-15 08:12 | PDOC.DSDIS_ITS ---
Discharge Plan Disposition Patient Disposition: HOME Condition: Good Discharge Details Reason For Visit: ESOPHAGUS STRICTURE and dilation Attending Provider: Gregoria Manrique Primary Care Provider: Abelardo Zavala Home Meds and New Rx's Prescriptions: New Dexilant 30 mg capsule,biphase delayed releas 30 mg PO DAILY Qty: 30 RF: 12 Continued sucralfate [Carafate] 1 gram tablet 1 gm PO QACHS Qty: 120 RF: 12 Discontinued ranitidine HCl 15 mg/mL syrup 300 mg PO BID Qty: 480 RF: 12 Discharge Instructions Additional Instructions: Findings:erythema and punctuate hemorrhage Continue with lifestyle modifications: no alcohol, tobacco products, Aspirin or NSAID's (ibuprofen, Motrin, Naprosyn, aleve, etc), soda pop/any carbonated beverages, caffeine (including tea & chocolate), and acidic foods, (tomatoes, citrus, onions, peppermints) spicy or fried/fatty foods. Do not lie down for 30 minutes after eating, and do not eat 2 hours prior to bedtime. Avoid wearing tight fitting clothing/ belts Follow up: February 16. Need to be in Same Day Surgery at 6:15am Please call if you develop: fevers >101.5 Nausea or Vomiting Abdominal pain that is not transient DAY SURGERY UNIT POST COLONOSCOPY INSTRUCTIONS 1. Because there will be medication in your system for the next 24 hours, you may feel a little sleepy. Your coordination will be affected. Therefore: a. Do not drive or operate dangerous equipment for 24 hours. b. Do not drink alcohol beverages for 24 hours (not even beer). c. Plan to go home and rest for the day. 2. Generally there are no restrictions on your activity after a day or so has g one by, but you may feel a bit fatigued for a few days. 3 After you arrive home you may have a light meal and return to a normal diet as you can tolerate it without feeling sick to your stomach. 4. After surgery, you may feel pain or discomfort. This should be only transient, but if it persists please contact your doctor. 5. If there are any questions regarding the findings of your procedure, please feel free to contact your doctor. 6. If you are unable to contact your doctor with a problem, contact the hospital at [phone]. 7. Continue all your regular medications unless directed otherwise. I understand the above instructions and have no questions. Signature of Patient or Responsible Adult Escort Date/Time Name of Responsible Adult Escort Signature of Nurse Date/Time Activity:: no strenuous activity x 24 hrs Diet:: liquids only x 24hrs Discharge Orders Discharge Orders: Discharge Order (Routine); Ordered 12/15/18 Ordered By: Gregoria Manrique DS: Diagnosis Discharge Diagnosis (1) Benign esophageal stricture: Status: Acute (2) Gastritis and gastroduodenitis: Status: Acute
[2018-12-15 08:17] VITALS: BP 160/89; PULSE 81; RESP 15; O2SAT 97
[2018-12-15 08:22] VITALS: BP 148/81; PULSE 76; RESP 16; O2SAT 96
--- NOTE | 2018-12-15 08:50 | W.PM.ENDDOP ---
Date of service: 12/15/18 Time of Service: 08:50 Endoscopy Report DATE OF PROCEDURE: 12/15/18 PRE-OP DIAGNOSIS: UE dictation POST-OP DIAGNOSIS: same PROCEDURE: EGD and dilation w/ 20F SURGEON: Gregoria Manrique ANESTHESIA: GETA ESTIMATED BLOOD LOSS: 5 PATHOLOGY: none sent COMPLICATIONS: None DISPOSITION: same day FINDINGS: dictated
[2018-12-15 09:05] VITALS: BP 135/97; PULSE 79; RESP 16; TEMP 37.1; O2SAT 97
--- NOTE | 2018-12-15 12:24 | ENDO_ITS ---
DATE OF PROCEDURE: December 15, 2018 PREOPERATIVE DIAGNOSIS: Benign upper esophageal stricture. POSTOPERATIVE DIAGNOSIS: Same. PROCEDURE: Esophagogastroduodenoscopy and dilation. SURGEON: Gregoria Manrique D.O. ANESTHESIA: General. ESTIMATED BLOOD LOSS: < 5 cc's CONDITION: The patient tolerated the procedure well without complication. INDICATION FOR PROCEDURE: Mr. Leger is a 53-year-old male who has a chronic upper esophageal stricture due to poorly-controlled reflux and chronic tobacco and alcohol abuse and is here today for dilation. Informed consent was obtained explaining risks and benefits of the procedure, including but not limited to bleeding, infection, perforation, aspiration, complications of anesthesia and other unforetold complications. PROCEDURE: The patient was brought to the operative room and placed in the supine position. Anesthesia is administered per the Department of Anesthesia. A time-out is performed. The patient did inform me that he stopped taking his Zantac a week ago because of risk of it being a carcinogenic. A previously- lubricated Olympus scope was inserted in the oropharynx and passed down easily into the upper esophagus. There were some signs of chronic scarring, but the scope is easily passed, and down through the GE junction into the stomach. There are some signs of erythema and punctate ulceration within the stomach that has not been present for some time. No biopsies are taken. The scope is then pulled back into the upper esophagus. It is dilated up to 20 mm x twice, holding for two minutes and each subsequent dilation.. The balloon is then removed. There are no signs of bleeding. Good dilation is achieved. The scope is then withdrawn. The patient tolerated the procedure well without complication, transferred to the recovery room in stable condition. An appointment will be made for the patient to have a repeat dilation done in February. cc: Abelardo Zavala M.D.
== END 2018-12-15 09:15 | disposition home or self-care (01) ==
PROVIDERS: PCP Family Medicine; Visit Provider Surgery
PROC: 0D758ZZ Dilation of Esophagus, Via Natural or Artificial Opening Endoscopic (ICD-10-PCS; CPT 43249; principal; 2018-12-15 07:30)
DX: K22.2 Esophageal obstruction (principal); K21.9 Gastro-esophageal reflux disease without esophagitis; F17.210 Nicotine dependence, cigarettes, uncomplicated; F10.988 Alcohol use, unspecified with other alcohol-induced disorder
CPT/HCPCS: 43249; NC; J1100; J2405; J3010

== ENCOUNTER → 2019-02-16 06:12 | Day surgery (SDC) | payer MEDICAID, SELFPAY ==
--- NOTE | 2019-02-13 10:23 | DSU.FORM ---
02/13/19 per pt report he is no longer taking any daily medication. Pt reports his father will bring him in and take him home. Reports a recent cold and c/o occ. stuffy nose with occ. productive cough. Reports daily smoking.
--- NOTE | 2019-02-15 16:12 | W.PM.HP.N ---
Date of service: 02/16/19 Time of Service: 07:26 Assessment and Plan Assessment and plan (1) Excessive drinking alcohol: Status: Acute (2) Tobacco dependence: Status: Acute (3) Benign esophageal stricture: Status: Acute Assessment and plan: Continue with lifestyle modifications: no alcohol, tobacco products, Aspirin or NSAID's (ibuprofen, Motrin, Naprosyn, aleve, etc), soda pop/any carbonated beverages, caffeine (including tea & chocolate), and acidic foods, (tomatoes, citrus, onions, peppermints) spicy or fried/fatty foods. Do not lie down for 30 minutes after eating, and do not eat 2 hours prior to bedtime. Avoid wearing tight fitting clothing/ belts change to omeprazole know that he has insurance- pt not taking his meds. can't give a good reason why he stopped taking them. We did give a dose of IV protonix today. Hopefully pt will product picker his meds. anesthesia is cancelling the case b/c of acute resp issues. pt states this is actually better today. Will treat w/ dose of rocephin b/c the pt has signif risk factors for long standing bronchitis and developing pneumonia evem though cxr and cbc are nl. clinically pt looks ill. It is always 50/50 of pt will f/u or take meds. pt also has hard time taking pills. (4) Fatty liver: Status: Acute (5) Esophagitis determined by endoscopy: Status: Acute (6) GERD (gastroesophageal reflux disease): Status: Chronic Assessment and plan: pt re-scheduled for procedure on Mar 02 History of Present Illness Consults Consult date: 02/16/19 Narrative: (1) Encounter for annual physical exam: 02/05 from H&P: (2) Benign esophageal stricture: (3) Fatty liver: (4) Elevated LFTs: (5) Inguinal hernia: (6) Tobacco dependence: (7) Excessive drinking alcohol: (8) Lesion of penis: Encounter for physical exam with abnormal findings 1. Esophageal obstruction. Patient requesting second opinion as he feels this is not improving with PPI and dilation. Referral made to [facility]. 2. Elevated LFTs, fatty liver, alcohol overuse. Discussed drinking recommendations for males no more than 2 alcoholic beverages per day. These may not be saved up for the weekend. We will obtain repeat LFTs as his AST was 144 and ALT 133 at the last draw in September 2018. 3. Left inguinal hernia. Referral to general surgery at [facility] per patient's request. Call for worsening symptoms should they occur prior to that appointment. 4. Tobacco dependence. Patient states he is not yet ready to stop smoking. He declines CT screening for lung cancer, has capacity, and understands risks including cancer and . We will continue to offer this yearly. 5. Lesion of penis. Patient with a large wartlike lesion on the dorsum of penis. Patient is unsure if there has been any change. Secondary to the size, we will refer to dermatology for evaluation. Health maintenance. Screening for colon cancer?patient declines colonoscopy understands the risks including undiagnosed cancer and . Screening for cardiovascular condition, patient agrees to lipids to be drawn fasting. Screening for diabetes?glucose 96 on September 2018. Immunizations?patient declines flu shot, up-to-date with Tdap. Would recommend complete physical examination yearly, call earlier for new or concerning symptoms. Patient verbalized understanding and agreement with plan of care. Referrals: [facility] Gastroenterology (Referral) K22.2 [facility] General Surgery (Referral) K40.90 [facility] Dermatology (Referral) N48.9 Today he states that the stricture is doing well and there is nothing that he can't eat. Pt has NOT been taking his meds. He has been having URT s/s for the past two wks. He was having fevers and shaking chills. He has been taking aspirin for this. He is still coughing up green sputum. He is a heavy smoker. He has diffuse ins/exp wheeze in all wells. He is tremulous this am. [facility] Medical History Benign esophageal stricture (Acute) Elevated LFTs (Acute) Esophageal foreign body (Acute) Esophagitis determined by endoscopy (Acute) Fatty liver (Acute) Fracture (healed) treatment follow-up (Acute) Gastritis and gastroduodenitis (Acute) GERD (gastroesophageal reflux disease) (Chronic) Smoker in home (Acute) Surgical History History of esophagogastroduodenoscopy (EGD) (Chronic) 09/24/18 Dr Gregoria Manrique, [facility], with dilation, repeat as needed. Hx of foot surgery (Acute) Family History Mother No problems noted. Father No problems noted. Sister No problems noted. Brother No problems noted. Son No problems noted. Daughter No problems noted. Daughter No problems noted. Maternal Grandfather Lung cancer Paternal Grandfather Lung cancer Maternal Grandmother , age 89 No problems noted. Paternal Grandmother Lung cancer Social History Smoking/Tobacco Use Status: Current every day Tobacco Type: cigarettes Smoking packs per day: 1 Smoking cigarettes per day: 20.0 Years smoked: 35 Smoking pack-years: 35.00 Tobacco: How many years used: 35 Quit status: not considering quitting Alcohol Intake: current Alcohol Intake frequency: a few times a week Alcohol type: beer Drug use: Daily Substance use type: marijuana Caregiver/Support person: No Household members: none Housing: homeless Do you need help understanding health information?: Never Pets and animals: No Sexually active: No Do you think of yourself as: straight/heterosexual Current gender identity: male What is your relationship status?: How often do you talk on the phone with friends or family?: once per week How often do you get together with friends or relatives?: once per week How often do you attend zoroastrianism or pentecostal services?: decline to answer Do you belong to any clubs or organized social groups?: no Panel score (0-1 are the most socially isolated patients): 0 What type of physical activity do you participate in: decline to answer Duration: decline to answer Frequency: decline to answer Meghana/Anglican: Yazdanism Special meghana needs: No Seatbelt use: never Helmet use: No Drive intox or ride w/intox front end loader driver: No Do you feel safe at home: Yes Do you feel safe in your relationship?: No Meds Home Medications and Allergies Home Medications Medication Instructions Recorded Confirmed Type sucralfate [Carafate] 1 gm PO QACHS #120 tab 09/24/18 02/16/19 Rx albuterol sulfate 2 inh IH QID #1 each 02/16/19 Rx omeprazole 40 mg PO DAILY #30 cap 02/16/19 Rx Allergies Allergy/AdvReac Type Severity Reaction Status Date / Time No Known Allergies Allergy Unverified 02/16/19 06:26 Exam Const General: cooperative and no acute distress Other: feels hot and clammy but no temps today Chest Chest: normal inspection of the chest and normal palpation of entire chest wall Resp Effort & Inspection: normal respiratory effort and able to speak in complete sentences Auscultation: wheezes Other: diffuse insp and exp wheeze in all wells GI Inspection: normal to inspection Palpation: soft Other: no pain today Extrem General: normal to inspection Results Labs Result diagrams: 02/16/19 07:50
--- NOTE | 2019-02-15 16:23 | W.PM.DSUDISC ---
Discharge Plan Disposition Patient Disposition: HOME Condition: Improving Discharge Details Reason For Visit: cancelled Attending Provider: Gregoria Manrique Primary Care Provider: Eileen De La Cruz Home Meds and New Rx's Prescriptions: New albuterol sulfate 90 mcg/actuation aerosol powdr breath activated 2 inh IH QID Qty: 1 RF: 3 omeprazole 40 mg capsule,delayed release(DR/EC) 40 mg PO DAILY Qty: 30 RF: 12 Continued sucralfate [Carafate] 1 gram tablet 1 gm PO QACHS Qty: 120 RF: 12 Discontinued pantoprazole 40 mg tablet,delayed release (DR/EC) 40 mg PO DAILY Qty: 30 RF: 12 pantoprazole [Protonix] 40 mg tablet,delayed release (DR/EC) 40 mg PO DAILY Qty: 30 RF: 12 lansoprazole 30 mg tablet,disintegrat, delay rel 30 mg PO DAILY Qty: 30 RF: 12 Dexilant 30 mg capsule,biphase delayed releas 30 mg PO DAILY Qty: 30 RF: 12 aspirin [Aspir-81] 81 mg Tablet,Delayed Release (Dr/Ec) 81 mg PO PRN PRNRF: 0 Discharge Instructions Additional Instructions: re-scheduled for March 02 . Needs to be at Same day surgery at 6:15am Do not take any aspirin/ibuprofen/aleve/naproxen /motrin. tylenol is ok. try to moderate alcohol and tobacco use Activity:: Activity as Tolerated Diet:: soft Discharge Orders Discharge Orders: Discharge Order (Routine); Ordered 02/16/19 Ordered By: Gregoria Manrique DS: Diagnosis Discharge Diagnosis (1) Excessive drinking alcohol: Status: Acute (2) Tobacco dependence: Status: Acute (3) Benign esophageal stricture: Status: Acute (4) Fatty liver: Status: Acute (5) Esophagitis determined by endoscopy: Status: Acute (6) GERD (gastroesophageal reflux disease): Status: Chronic
[2019-02-16 06:29] VITALS: BP 142/98; PULSE 92; RESP 17; TEMP 36.2; O2SAT 96
[2019-02-16] MEDS: Lactated Ringers 1,000 ML 100 ML IV (06:46)
--- NOTE | 2019-02-16 07:57 | DI.RAD_ITS ---
EXAM: XR CHEST 2V PA LATERAL INDICATION: pneumonia. COMPARISON: LEFT RIBS PA CXR ONLY-3VIEWS from 03/26/2014 TECHNIQUE: 2D digital imaging was performed. FINDINGS: Heart size is normal. The lungs are hyperinflated. No infiltrate, effusion or pulmonary edema is se en. There is no pneumothorax or thoracic compression fracture. IMPRESSION: No acute abnormality. Hyperinflation.
[2019-02-16 07:59] LABS: Abs Immature Grans 0.01 k/cumm (0.0-0.09); Absolute Basophil Count 0.05 k/cumm (0.0-0.2); Absolute Eosinophil Count 0.07 k/cumm (0.0-0.7); Absolute Lymphocyte Count 1.16 k/cumm (1.2-3.4); Absolute Monocyte Count 0.73 k/cumm (0.11-0.7); Absolute Neutrophil Count 4.48 k/cumm (1.2-6.7); Basophils % 0.8; Eosinophils % 1.1; HCT 43.2 % (40.0-50.0); HGB 14.9 g/dL (13.5-17.5); Immature Grans % 0.2 %; Lymphocytes % 17.8; Mean Corp. HGB Concentration 34.5 g/dL (32.0-36.0); Mean Corpuscular Hemoglobin 32.3 pg (27.0-33.0); Mean Corpuscular Volume 93.7 fL (80-95); Monocytes % 11.2; Neutrophils % 68.9; Platelet Count 427 x1000/uL (130-400); RBC 4.61 m/cumm (4.50-6.00); RBC Distribution Width 11.8 % (11.8-14.1)
[2019-02-16] MEDS: Albuterol 2.5 MG/3 ML INH SOLN VIAL (08:18)
[2019-02-16 08:21] VITALS: RESP 12
[2019-02-16 08:25] VITALS: PULSE 77; RESP 12; RESP 4; RESP 5; O2SAT 97
[2019-02-16] MEDS: Normal Saline Flush 10 ML SYR IV (08:31)
[2019-02-16] MEDS: Pantoprazole 40 MG VIAL IVP (08:32)
[2019-02-16] MEDS: Normal Saline 1,000 ML 80 ML IV (08:55)
[2019-02-16] MEDS: cefTRIAXone 2 GM/50 ML BAG IVPB (08:56)
== END | disposition home or self-care (01) ==
PROVIDERS: PCP Nurse Practitioner; Visit Provider Surgery
DX: K21.0 Gastro-esophageal reflux disease with esophagitis (principal); Z53.09 Procedure and treatment not carried out because of other contraindication; J20.9 Acute bronchitis, unspecified; Y66 Nonadministration of surgical and medical care; K22.2 Esophageal obstruction; F17.210 Nicotine dependence, cigarettes, uncomplicated; F10.10 Alcohol abuse, uncomplicated
CPT/HCPCS: 36415; 99222; 71046; 85025; 94640; J7613

== ENCOUNTER 2019-03-02 06:09 | Day surgery (SDC) | payer MEDICAID, SELFPAY ==
[2019-03-02 06:17] VITALS: BP 144/101; PULSE 84; RESP 17; TEMP 36; O2SAT 97
[2019-03-02] MEDS: Lactated Ringers 1,000 ML 100 ML IV (06:47)
--- NOTE | 2019-03-02 07:32 | W.PM.HP.N ---
Date of service: 03/02/19 Time of Service: 07:32 Assessment and Plan Assessment and plan (1) Excessive drinking alcohol: Status: Acute (2) Tobacco dependence: Status: Acute (3) Benign esophageal stricture: Status: Acute (4) Fatty liver: Status: Acute (5) Esophagitis determined by endoscopy: Status: Acute (6) Gastritis and gastroduodenitis: Status: Acute (7) Elevated LFTs: Status: Acute (8) GERD (gastroesophageal reflux disease): Status: Chronic (9) Bronchitis: Status: Acute Assessment and plan: pt still coughing and wheezing. pt did not take abx took MDI CXR- clear today pt sounds better after Neb Tx. We are going to proceed w/ procedure today. I will call Hugh guerra they open History of Present Illness Consults Consult date: 03/02/19 Narrative: pt is here today for esophageal dilation. He is still wheezing and coughing up green material. He is still smoking. He picked up the MDI from pharm but not the abx. Unclear if he is taking abx or his PPI. He is still smoking and drinking. He tells me he is not having problems w/ swallowing and eating whatever he wants Review of Systems All systems reviewed & are unremarkable except as noted in HPI and below Respiratory Respiratory: Reports chest congestion, Reports cough, Reports excessive phlegm production and Reports wheezing Gastrointestinal Comments: esophageal stricture Allergic/Immunologic Allergic/Immunologic: Reports wheezing PFSH Medical History Benign esophageal stricture (Acute) Elevated LFTs (Acute) Esophageal foreign body (Acute) Esophagitis determined by endoscopy (Acute) Fatty liver (Acute) Fracture (healed) treatment follow-up (Acute) Gastritis and gastroduodenitis (Acute) GERD (gastroesophageal reflux disease) (Chronic) Smoker in home (Acute) Surgical History History of esophagogastroduodenoscopy (EGD) (Chronic) 09/24/18 Dr Gregoria Manrique, [facility], with dilation, repeat as needed. Hx of foot surgery (Acute) Family History Mother No problems noted. Father No problems noted. Sister No problems noted. Brother No problems noted. Son No problems noted. Daughter No problems noted. Daughter No problems noted. Maternal Grandfather Lung cancer Paternal Grandfather Lung cancer Maternal Grandmother , age 89 No problems noted. Paternal Grandmother Lung cancer Social History Smoking/Tobacco Use Status: Current every day Tobacco Type: cigarettes Smoking packs per day: 1 Smoking cigarettes per day: 20.0 Years smoked: 35 Smoking pack-years: 35.00 Tobacco: How many years used: 35 Quit status: not considering quitting Alcohol Intake: current Alcohol Intake frequency: a few times a week Alcohol type: beer Drug use: Daily Substance use type: marijuana Details: 03/02/19 Pt reports he has not used in over a month.HE Caregiver/Support person: No Household members: none Housing: homeless Do you need help understanding health information?: Never Pets and animals: No Sexually active: No Do you think of yourself as: straight/heterosexual Current gender identity: male What is your relationship status?: How often do you talk on the phone with friends or family?: once per week How often do you get together with friends or relatives?: once per week How often do you attend holiness or quaker services?: decline to answer Do you belong to any clubs or organized social groups?: no Panel score (0-1 are the most socially isolated patients): 0 What type of physical activity do you participate in: decline to answer Duration: decline to answer Frequency: decline to answer Meghana/Zoroastrianism: Evangelical Special meghana needs: No Seatbelt use: never Helmet use: No 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 Do you feel safe at home: Yes Do you feel safe in your relationship?: No Meds Home Medications and Allergies Home Medications Medication Instructions Recorded Confirmed Type sucralfate [Carafate] 1 gm PO QACHS #120 tab 09/24/18 02/16/19 Rx albuterol sulfate 2 inh IH QID #1 each 02/16/19 03/02/19 Rx omeprazole 40 mg PO DAILY #30 cap 02/16/19 Rx Allergies Allergy/AdvReac Type Severity Reaction Status Date / Time No Known Allergies Allergy Unverified 03/02/19 06:32 Exam Const General: cooperative, healthy appearing, comfortable, no acute distress, well developed and well groomed Nutritional Appearance: average body habitus and well nourished Orientation: alert, awake and oriented x3 [facility] Head: normal to inspection, normocephalic and atraumatic Ears: hearing grossly normal bilaterally and external ears normal General nose exam: external nose normal Face and sinus: normal facial exam and sinuses nontender Mouth: oral mucosae normal, lip normal, tongue normal and moist mucous membranes Teeth and gingiva: fair dentition Eyes General: appearance normal, both eyes and all related structures Conjunctivae: conjunctivae normal Sclera: sclerae normal Pupils: PERRL Neck Neck: normal visual inspection and full ROM Chest Chest: normal inspection of the chest Resp Effort & Inspection: normal respiratory effort, able to speak in complete sentences, no cough, no nasal flaring, not tachypneic and no use of accessory muscles Auscultation: clear to auscultation bilaterally (after neb was given ), no rales, no rhonchi and no wheezes Cardio Jugular venous pressure: no JVD Rate: regular rate Rhythm: regular rhythm GI Inspection: normal to inspection, no edema and non-distended Palpation: soft, no masses, nontender and No ascites Auscultation: normal bowel sounds Skin General skin exam: no rashes or lesions noted Trauma: no lacerations or abrasions Neuro General: alert, oriented x3, oriented, gait normal, moves all extremities, no focal motor deficits and CN's II-XI intact bilaterally Cognition: normal cognition Speech: speech normal Gait: normal gait Motor: muscle tone normal throughout Extrem General: normal to inspection, full ROM and no clubbing, cyanosis or edema Psych Appearance: grossly normal and well kempt Mental Status: mental status grossly normal Speech and Movement: speech and movement normal Affect: normal affect Results Last Vital Signs Temp 36.0 C L 03/02/19 06:17 Pulse 84 03/02/19 06:17 Resp 17 03/02/19 06:17 BP 144/101 H 03/02/19 06:17 Pulse Ox 97 03/02/19 06:17
--- NOTE | 2019-03-02 07:36 | DI.RAD_ITS ---
EXAM: XR CHEST 2V PA LATERAL CLINICAL HISTORY: pneumonia TECHNIQUE: COMPARISON: LEFT RIBS PA CXR ONLY-3VIEWS from 03/26/2014 LEFT RIBS PA CXR ONLY-3VIEWS from 03/26/2014 XR CHEST 2V PA LATERAL from 02/16/2019 XR CHEST 2V PA LATERAL from 02/16/2019 FINDINGS: The heart is not enlarged. Lungs are hyperinflated but appear predominantly clear. No pleural effus ion seen. Question of a faint vaguely nodular radiodensity projected over anterior aspect of right 7th rib. No dule or small focus of consolidation not excluded. Follow-up films requested and if the findings do not resolve additional evaluation with CT would be recommended. IMPRESSION: COPD. Question right basilar nodular radiodensity or patchy consolidation. Follow-up films requeste d and if findings do not resolve additional evaluation with CT would be recommended.
[2019-03-02] MEDS: Normal Saline 1,000 ML 80 ML IV (08:00)
[2019-03-02] MEDS: Pantoprazole 40 MG VIAL IVP (08:04)
[2019-03-02] MEDS: cefTRIAXone 2 GM/50 ML BAG IVPB (08:12)
--- NOTE | 2019-03-02 09:07 | W.PM.ENDDOP ---
Date of service: 03/02/19 Time of Service: 09:07 Endoscopy Report DATE OF PROCEDURE: 03/02/19 PRE-OP DIAGNOSIS: gerd/benign esophageal stricture POST-OP DIAGNOSIS: same PROCEDURE: egd and dilation SURGEON: Gregoria Manrique ANESTHESIA: GETA ESTIMATED BLOOD LOSS: 1 PATHOLOGY: none sent COMPLICATIONS: None DISPOSITION: same day INDICATIONS: maintenance on esoph stricture PROCEDURE DESCRIPTION: After informed consent was obtained the patient was take to the procedure room and placed in a supine position. Monitors were applied and a time out was done. The patients name, date of , procedure type, allergies to medications and metal in their body was reviewed. A bite block was placed and the patient was sedated. Once sedated and comfortable the gastroscope was advanced through the oropharynx which was grossly normal into the esophagus. The stricture is in the upper esoph. There is no redness/swelling. The scope passes through easily. The proximal and mid-esophagus were nl. In the distal esophagus there was nl noted. The scope was advanced into the stomach and through the pylorus into the 3rd portion of the duodenum. The duodenum was noted to be nl. No Biopsies were done. The scope was retracted back into the stomach and biopsies were done to rule out H. pylori. There were no ulcers. The scope was retroflexed. The cardia and fundus were noted to be normal. The scope passes readily into the upper esophagus. We dilated up to 20cm x2 today. minimal bleeding or tearing. The Z line was regular. The scope was removed and the patient was woken up and taken back to [facility] in stable condition. Follow up: 2months for repeat procedure
[2019-03-02 09:09] VITALS: BP 124/77; PULSE 75; RESP 15; TEMP 36.7; O2SAT 100
--- NOTE | 2019-03-02 09:10 | W.PM.DSUDISC ---
Discharge Plan Disposition Patient Disposition: HOME Condition: Good Discharge Details Reason For Visit: esophageal dilation Attending Provider: Gregoria Manrique Primary Care Provider: Eileen De La Cruz Home Meds and New Rx's Prescriptions: Continued doxycycline monohydrate 100 mg capsule 100 mg PO BID 7 Days Qty: 14 RF: 0 albuterol sulfate 90 mcg/actuation aerosol powdr breath activated 2 inh IH QID Qty: 1 RF: 3 omeprazole 40 mg capsule,delayed release(DR/EC) 40 mg PO DAILY Qty: 30 RF: 12 Discharge Instructions Additional Instructions: Findings: stricture dilated up to 20cm today. - Rx placed for doxycycline. take all. -stop smoking. try to limit alcohol. -will need to be on prilosec life long. Follow up: repeat dilation in 2 months time. Contact office if desires to have done at [facility] Please call if you develop: fevers >101.5 Nausea or Vomiting Abdominal pain that is not transient DAY SURGERY UNIT POST COLONOSCOPY INSTRUCTIONS 1. Because there will be medication in your system for the next 24 hours, you may feel a little sleepy. Your coordination will be affected. Therefore: a. Do not drive or operate dangerous equipment for 24 hours. b. Do not drink alcohol beverages for 24 hours (not even beer). c. Plan to go home and rest for the day. 2. Generally there are no restrictions on your activity after a day or so has gone by, but you may feel a bit fatigued for a few days. 3 After you arrive home you may have a light meal and return to a normal diet as you can tolerate it without feeling sick to your stomach. 4. After surgery, you may feel pain or discomfort. This should be only transient, but if it persists please contact your doctor. 5. If there are any questions regarding the findings of your procedure, please feel free to contact your doctor. 6. If you are unable to contact your doctor with a problem, contact the hospital at [phone]. 7. Continue all your regular medications unless directed otherwise. I understand the above instructions and have no questions. Signature of Patient or Responsible Adult Escort Date/Time Name of Responsible Adult Escort Signature of Nurse Date/Time Activity:: No lifting over pounds or strenuous activity x24 hours Diet:: Liquid diet x24 hours DS: Diagnosis Discharge Diagnosis (1) Excessive drinking alcohol: Status: Acute (2) Tobacco dependence: Status: Acute (3) Benign esophageal stricture: Status: Acute (4) Fatty liver: Status: Acute (5) Esophagitis determined by endoscopy: Status: Acute (6) Gastritis and gastroduodenitis: Status: Acute (7) Elevated LFTs: Status: Acute (8) GERD (gastroesophageal reflux disease): Status: Chronic (9) Bronchitis: Status: Acute
[2019-03-02 09:14] VITALS: BP 153/104; PULSE 76; RESP 14; TEMP 36.7; O2SAT 98
[2019-03-02 09:19] VITALS: BP 150/104; PULSE 75; RESP 14; TEMP 36.7; O2SAT 97
[2019-03-02 09:33] VITALS: BP 144/76; PULSE 78; RESP 18; TEMP 36.7; O2SAT 96
[2019-03-02 10:12] VITALS: BP 145/95; PULSE 68; RESP 17; TEMP 36.8; O2SAT 97
== END 2019-03-02 10:35 | disposition home or self-care (01) ==
PROVIDERS: PCP Nurse Practitioner; Visit Provider Surgery
PROC: 0DJ68ZZ Inspection of Stomach, Via Natural or Artificial Opening Endoscopic (ICD-10-PCS; CPT 43235; principal; 2019-03-02 07:30)
DX: K22.2 Esophageal obstruction (principal); K21.9 Gastro-esophageal reflux disease without esophagitis; J40 Bronchitis, not specified as acute or chronic; F17.210 Nicotine dependence, cigarettes, uncomplicated; F10.10 Alcohol abuse, uncomplicated
CPT/HCPCS: 43249; 96365; NC; 71046; J1100; J2001; J2405; J3010

== ENCOUNTER 2019-08-11 17:54 | Emergency (ER) | payer MEDICAID, SELFPAY ==
[2019-08-11 17:55] VITALS: BP 161/111; PULSE 124; TEMP 36.8; O2SAT 97
[2019-08-11 19:16] VITALS: BP 123/89; PULSE 95; RESP 15; TEMP 36.7; O2SAT 98
--- NOTE | 2019-08-11 19:24 | W.ED.GENAD ---
Discharge Plan Disposition Patient Disposition: HOME Condition: Stable Discharge Details Chief Complaint: HeadInjury Clinical Impression: Alcohol abuse Primary Care Provider: Eileen De La Cruz ED Provider: Walter Olivo Home Meds and New Rx's Prescriptions: No Action No Known Home Meds RF: 0 Discharge Instructions Instructions: Abuse of Alcohol (ED) Additional Instructions: Please stop abusing alcohol. Please drink plenty water or electrolyte balance sports beverages to stay hydrated. Please contact your primary care physician to arrange follow-up. Return to the ER for any worsening or new concerning symptoms. Referrals: Eileen De La Cruz, OPTOMETRIC ASSISTANT [Primary Care Provider] - Medical Decision Making 18:00 -- 39-year-old male here with EMS concern for intoxication and head trauma. Patient mentating well on evaluation. Patient alert and oriented x4. Patient denies head injury. He has no headache. Patient has no complaint at this time and is requesting discharge. Patient is tachycardic. Patient refusing work-up. Patient provided informed refusal of diagnostics and IV access. Plan to give oral fluid and reassess. Patient agreeable with this plan Screening ECG was reviewed and interpreted by me, ECG obtained for tachycardia, sinus tachycardia noted, 109 bpm, normal axis, no arrhythmia present. 19:09 -- Patient reassessed and tachycardia resolved after oral fluid rehydration. Patient feels well and continues to deny any headache. Patient requesting discharge. Usual and customary discharge instructions were reviewed with the patient. I encouraged the patient to stop abusing alcohol, drink plenty of water to maintain hydration and to follow-up with primary care physician. HPI General Mode of arrival: ambulatory. Date/Time Provider Initiated Documentation: 08/11/19 18:01. Limitations to Documentation: no limitations. Information obtained by: patient. HPI Narrative: 39-year-old male presents with EMS who no concern for intoxication and fall. Patient admits to consuming alcohol today. He states he did stumble and fall but did not hit his head. Patient notes he has no pain and has no complaints. Related Data Home Medications Medication Instructions Recorded Confirmed Unknown [No Known Home Meds] 08/11/19 08/11/19 Allergies Allergy/AdvReac Type Severity Reaction Status Date / Time No Known Allergies Allergy Unverified 03/02/19 06:32 General Stated Complaint: HeadInjury EUGENIA: 3 Review of Systems All systems reviewed & are unremarkable except as noted in HPI and below Cardiovascular Cardiovascular: Denies chest pain and Denies dyspnea Respiratory Respiratory: Denies dyspnea Gastrointestinal Gastrointestinal: Denies abdominal pain PFS Medical History Benign esophageal stricture (Acute) Bronchitis (Acute) Elevated LFTs (Acute) Esophageal foreign body (Acute) Esophagitis determined by endoscopy (Acute) Fatty liver (Acute) Fracture (healed) treatment follow-up (Acute) Gastritis and gastroduodenitis (Acute) GERD (gastroesophageal reflux disease) (Chronic) Smoker in home (Acute) Surgical History History of esophagogastroduodenoscopy (EGD) (Chronic) 09/24/18 Dr Gregoria Manrique, [facility], with dilation, repeat as needed. Hx of foot surgery (Acute) Family History Mother No problems noted. Father No problems noted. Sister No problems noted. Brother No problems noted. Son No problems noted. Daughter No problems noted. Daughter No problems noted. Maternal Grandfather Lung cancer Paternal Grandfather Lung cancer Maternal Grandmother , age 89 No problems noted. Paternal Grandmother Lung cancer Social History Smoking/Tobacco Use Status: Current every day Tobacco Type: cigarettes Smoking packs per day: 1 Smoking cigarettes per day: 20.0 Years smoked: 35 Smoking pack-years: 35.00 Tobacco: How many years used: 35 Quit status: not considering quitting Alcohol Intake: current Alcohol Intake frequency: 3 or more drinks per day Alcohol type: beer Drug use: Daily Substance use type: marijuana Details: 03/02/19 Pt reports he has not used in over a month.HE Caregiver/Support person: No Household members: none Housing: homeless Do you need help understanding health information?: Never Pets and animals: No Sexually active: No Do you think of yourself as: straight/heterosexual Current gender identity: male What is your relationship status?: How often do you talk on the phone with friends or family?: once per week How often do you get together with friends or relatives?: once per week How often do you attend baptism or christianity services?: decline to answer Do you belong to any clubs or organized social groups?: no Panel score (0-1 are the most socially isolated patients): 0 What type of physical activity do you participate in: decline to answer Duration: decline to answer Frequency: decline to answer Meghana/Yazidism: Gnosticist Special meghana needs: No Seatbelt use: never Helmet use: No 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 Do you feel safe at home: Yes Do you feel safe in your relationship?: No Exam Const General: cooperative and no acute distress HENMT Head: normocephalic, atraumatic, no abrasions, no Strong's sign, no contusions, no hematomas, no lacerations, no raccoon eyes, no scalp lesions, no scalp tenderness and No periorbital ecchymosis General nose exam: external nose normal and nares normal Face and sinus: normal facial exam Mouth: moist mucous membranes Eyes Conjunctivae: normal conjunctivae Sclera: normal sclerae EOM: EOM intact bilaterally Neck Neck: trachea midline and supple Resp Auscultation: clear to auscultation bilaterally, no rales, no rhonchi and no wheezes Cardio Jugular venous pressure: no JVD Rate: regular rate Rhythm: regular rhythm GI Palpation: soft, not firm, no guarding, no masses, not rigid and nontender Back/Spine/Pelvis Back: No back tenderness Cervical Spine: cervical ROM normal Thoracic/Lumbar Spine: thoracic and lumbar spine normal to inspection Skin General skin exam: no rashes or lesions noted Neuro General: patient alert, patient awake, patient oriented x3 and tone normal Extrem General: no edema Psych Appearance: grossly normal Mental Status: mental status grossly normal Speech and Movement: speech and movement normal Course Vital Signs Vital signs: Vital Signs Temperature 36.8 C 08/11/19 17:55 Pulse 124 H 08/11/19 17:55 Blood Pressure 161/111 H 08/11/19 17:55 Pulse Oximetry 97 08/11/19 17:55 Temperature 36.7 C 08/11/19 19:16 Temperature Source Temporal Artery Scan 08/11/19 17:55 Pulse 95 H 08/11/19 19:16 Respiratory Rate 15 08/11/19 19:16 Respiratory Effort Non-Labored 08/11/19 17:59 Blood Pressure 123/89 08/11/19 19:16 Blood Pressure Position Supine 08/11/19 17:55 Pulse Oximetry 98 08/11/19 19:16 Oxygen Delivery Method Room Air 08/11/19 17:55 Oxygen Flow Rate 0 08/11/19 17:55 Pain Level 0 08/11/19 19:16
== END 2019-08-11 19:15 | disposition home or self-care (01) ==
PROVIDERS: Emergency Provider Student in an Organized Health Care Education/Training Program; PCP Nurse Practitioner
DX: S09.90XA Unspecified injury of head, initial encounter (principal); R00.0 Tachycardia, unspecified; W19.XXXA Unspecified fall, initial encounter; F10.10 Alcohol abuse, uncomplicated
CPT/HCPCS: 93005; 99283; 93010

== ENCOUNTER 2019-08-11 17:57 | Emergency (ER) | payer SELFPAY | END 2019-08-11 18:21 | LOC: ER 18:03 | PROVIDERS: PCP Nurse Practitioner | DX: Z53.21 Procedure and treatment not carried out due to patient leaving prior to being seen by health care provider (principal) ==

== ENCOUNTER 2019-10-22 19:31 | Emergency (ER) | payer MEDICAID, SELFPAY ==
[2019-10-22 19:37] VITALS: BP 165/98; PULSE 84; RESP 16; TEMP 37.4; O2SAT 96
--- NOTE | 2019-10-22 20:23 | DI.RAD_ITS ---
EXAM: XR FOOT LT COMPLETE CLINICAL HISTORY: jumped down 5 feet 2 nights ago, pain. TECHNIQUE: 2D digital imaging was performed. COMPARISON: No exams were available for comparison FINDINGS: There is a fracture at the medial corner of the base of the proximal phalanx of the great toe. The f racture involves the articular surface is shows mild separation. No additional fractures are seen. There are degenerative changes of the intertarsal and tarsometatarsal joints as well as a small heel spur. Flatfoot deformity is also suspected. IMPRESSION: Intra-articular fracture at the medial base of the proximal phalanx of great toe. DATA REPOSITORY: RADIATION DOSE DELIVERED:
--- NOTE | 2019-10-22 20:33 | DI.VRAD_ITS ---
PROCEDURE INFORMATION: Exam: XR Left Foot Complete Exam date and time: 10/22/2019 8:18 PM Age: 54 years old Clinical indication: Injury or trauma; Fall; Initial encounter; Blunt trauma; Foot; Left TECHNIQUE: Imaging protocol: XR Left foot. Views: 3 or more views. COMPARISON: No relevant prior studies available. FINDINGS: Bones/joints: Fracture at the base of the left great toe proximal phalanx along the medial aspect. There is a small corner fracture measuring 7 x 4 mm. This involves the medial aspect of the articular surface and there is mild distraction. Soft tissues: Normal. IMPRESSION: Fracture at the base of the left great toe proximal phalanx along the medial aspect as detailed above. Minor distraction. Dictated and Authenticated by: Ke Devries MD. Ordering:ADEOLA Monsalve MD
--- NOTE | 2019-10-22 20:38 | ED.GENADUL_ITS ---
Discharge Plan Disposition Patient Disposition: HOME Condition: Stable Discharge Details Clinical Impression: Fracture of great toe Primary Care Provider: Eileen De La Cruz ED Provider: Bello Grajeda Home Meds and New Rx's Prescriptions: No Action No Known Home Meds RF: 0 Discharge Instructions Instructions: Toe Fracture (ED) Additional Instructions: Percocet as directed, may cause drowsiness and/or constipation. Wear posterior splint, use crutches, no weightbearing until reevaluation with orthopedics. Rest, elevate, cool compresses every 2 hours for 20 minutes. I also recommend using [id number] Motrin as directed. Please contact the orthopedic provid er tomorrow for prompt outpatient reevaluation. Watch for new or worsening symptoms and return to the ER for any concerns Referrals: Glenroy Hernandez MD [ [facility] STAFF PHYSICIAN] - Medical Decision Making 54-year-old gentleman presents with left foot injury that occurred 2 nights ago. Neuro, vascular, tendon intact. No other injuries. Will obtain x-ray of the left foot and reassess X-ray of left foot initially reviewed by me and confirmed by virtual radiology as a fracture at the base of the left great toe proximal phalanx along the medial aspect, minor distraction. Discussed x-ray findings with patient. We discussed treatment options. Patient will place into an Ortho-Glass posterior splint, ample padding around the foot. He will be given crutches with teaching, nonweightbearing until orthopedic evaluation. Patient requesting something for pain. Pharmacies are closed, will be given a take-home pack of Percocet. Patient was placed on the orthopedic list, I recommend he contact him tomorrow for prompt outpatient reevaluation. He was encouraged to watch for new or worsening symptoms and return to the ER for any concerns. Medical Records Medical records reviewed: Yes I reviewed the patient's medical records. HPI General Mode of arrival: ambulatory . Date/Time Provider Initiated Documentation: 10/22/19 19:39 . Limitations to Documentation: no limitations . Information obtained by: patient . HPI Narrative: 54-year-old gentleman presents to the ER complaining of left foot pain. He reports that 2 nights ago he jumped down into a 5 foot leonard landing on the ball of his foot and instantly felt pain. He reports the pain is moderate-severe worse with movement or bearing weight. He denies any other injury. He denies numbness, tingling, weakness. He reports that 30 years ago he had a foot fracture that required surgery. He has not taken anything for his discomfort. He has been ambulatory since the initial injury Related Data Home Medications Medication Instructions Recorded Confirmed Unknown [No Known Home Meds] 08/11/19 10/22/19 Allergies Allergy/AdvReac Type Severity Reaction Status Date / Time No Known Allergies Allergy Unverified 10/22/19 19:41 General Stated Complaint: Orthopedic EUGENIA: 4 Review of Systems Constitutional Constitutional: Denies weakness Gastrointestinal Gastrointestinal: Denies nausea and Denies vomiting Musculoskeletal Musculoskeletal: Denies numbness and Denies tingling Integumentary/Breasts Skin/Breast: Denies rash Neurologic Neurologic: Denies numbness, Denies tingling and Denies weakness [facility] Medical History Benign esophageal stricture Bronchitis Elevated LFTs Esophageal foreign body Fatty liver Fracture (healed) treatment follow-up Gastritis and gastroduodenitis GERD (gastroesophageal reflux disease) Smoker in home Surgical History History of esophagogastroduodenoscopy (EGD) 09/24/18 Dr Gregoria Manrique, [facility], with dilation, repeat as needed. Hx of foot surgery Family History Mother No problems noted. Father No problems noted. Sister No problems noted. Brother No problems noted. Son No problems noted. Daughter No problems noted. Daughter No problems noted. Maternal Grandfather Lung cancer Paternal Grandfather Lung cancer Maternal Grandmother , age 89 No problems noted. Paternal Grandmother Lung cancer Social History Smoking/Tobacco Use Status: Current every day Tobacco Type: cigarettes Smoking packs per day: 1 Smoking cigarettes per day: 20.0 Years smoked: 35 Smoking pack- years: 35.00 Tobacco: How many years used: 35 Quit status: not considering quitting Alcohol Intake: current Alcohol Intake frequency: 3 or more drinks per day [place] type: beer Drug use: Daily Substance use type: marijuana Details: 03/02/19 Pt reports he has not used in over a month.HE Caregiver/Support person: No Household members: none Housing: homeless Do you need help understanding health information?: Never Pets and animals: No Sexually active: No Do you think of yourself as: straight/heterosexual Current gender identity: male What is your relationship status?: How often do you talk on the phone with friends or family?: once per week How often do you get together with friends or relatives?: once per week How often do you attend alevism or confucianist services?: decline to answer Do you belong to any clubs or organized social groups?: no Panel score (0-1 are the most socially isolated patients): 0 What type of physical activity do you participate in: decline to answer Duration: decline to answer Frequency: decline to answer Meghana/Moravian: Roman Catholic Special meghana needs: No Seatbelt use: never Helmet use: No Drive intox or ride w/intox cat driver: No Do you feel safe at home: Yes Do you feel safe in your relationship?: Yes Exam Const General: cooperative, healthy appearing, comfortable and no acute distress Orientation: alert and awake HENMT Head: normal to inspection, normocephalic and atraumatic Mouth: moist mucous membranes Eyes Conjunctivae: conjunctivae normal Neck Neck: normal visual inspection, trachea midline and supple Resp Effort & Inspection: normal respiratory effort and able to speak in complete sentences Cardio Rate: regular rate Rhythm: regular rhythm Skin General skin exam: no rashes or lesions noted Neuro General: patient alert, patient awake, moves all extremities and no focal motor deficits Sensory Exam: no sensory deficits noted Extrem Left lower extremity: full ROM, normal capillary refill and foot Details: normal capillary refill, tenderness and toes with normal ROM Ankle/foot/toe images: 1. Diffuse mild swelling and discomfort, worse over the base of the great toe. Neuro, vascular, tendon intact. Skin is intact Psych Appearance: grossly normal Mental Status: mental status grossly normal Course Vital Signs Vital signs: Vital Signs Temperature 37.4 C 10/22/19 19:37 Pulse 84 10/22/19 19:37 Respiratory Rate 16 10/22/19 19:37 Blood Pressure 165/98 H 10/22/19 19:37 Pulse Oximetry 96 10/22/19 19:37 Temperature 37.4 C 10/22/19 19:37 Temperature Source Skin 10/22/19 19:37 Pulse 84 10/22/19 19:37 Respiratory Rate 16 10/22/19 19:37 Respiratory Effort 10/22/19 19:41 Blood Pressure 165/98 H 10/22/19 19:37 Blood Pressure Position Sitting 10/22/19 19:37 Pulse Oximetry 96 10/22/19 19:37 Oxygen Delivery Method Room Air 10/22/19 19:37 Oxygen Flow Rate 0 10/22/19 19:37 Pain Level 10 10/22/19 19:42 Comment 10/22/19 19:37
== END 2019-10-22 21:05 | disposition home or self-care (01) ==
PROVIDERS: Emergency Provider Physician Assistant; PCP Nurse Practitioner
DX: S92.402A Displaced unspecified fracture of left great toe, initial encounter for closed fracture (principal); X58.XXXA Exposure to other specified factors, initial encounter
CPT/HCPCS: 29515; 99284; 73630; E0114

== ENCOUNTER 2019-12-10 01:14 | Outpatient (CLI) | payer MEDICAID, SELFPAY ==
--- NOTE | 2019-12-10 13:10 | DI.RAD_ITS ---
EXAM: XR CHEST 2V PA LATERAL CLINICAL HISTORY: follow up bronchitis, worsening cough,j40 TECHNIQUE: COMPARISON: CR XR CHEST 2V PA LATERAL from 03/02/2019 FINDINGS: Heart is not enlarged. There is pulmonary hyperinflation raising the possibility of COPD. No pulmon tr consolidation or mass identified. No pleural effusion. IMPRESSION: Negative examination of the chest. RADIATION DOSE DELIVERED: Total DLP
== END 2019-12-10 01:34 ==
PROVIDERS: PCP Nurse Practitioner; Visit Provider Nurse Practitioner
DX: J40 Bronchitis, not specified as acute or chronic (principal)
CPT/HCPCS: 71046

== ENCOUNTER 2020-02-10 01:14 | Outpatient (CLI) | payer MEDICAID, SELFPAY ==
--- NOTE | 2020-02-10 14:55 | DI.CT_ITS ---
EXAM: CT CHEST WO CLINICAL HISTORY: F/U PULMONARY NODULE,R91.1 TECHNIQUE: COMPARISON: CT CT neck chest w from 09/19/2018 FINDINGS: Noncontrast CT examination chest was performed. Prior CT of September 2018 showed multiple small pulmon tr nodules, the largest a 6 millimeter in diameter left medial basilar nodule. The findings are unc hanged in comparison with the previous examination. No new intrapulmonary mass or consolidation. Tr acheobronchial tree appears within normal limits.. No mediastinal adenopathy identified. No pleural effusion. Thoracic aorta is of normal diameter. Images obtained through the upper abdomen show unremarkable appearance of visualized portions liver, spleen, pancreas, adrenals, and kidneys. IMPRESSION: Stable small pulmonary nodules. Follow-up chest CT suggested in 12 months. RADIATION DOSE DELIVERED: 462.92mGy.cm Total DLP
== END 2020-02-10 01:34 ==
PROVIDERS: PCP Nurse Practitioner; Visit Provider Nurse Practitioner
DX: R91.8 Other nonspecific abnormal finding of lung field (principal)
CPT/HCPCS: 71250

== ENCOUNTER 2020-03-28 01:51 | Outpatient (CLI) | payer MEDICAID, SELFPAY ==
[2020-03-28 10:15] LABS: Abs Immature Grans 0.02 10^3/uL (0.0-0.06); Absolute Basophil Count 0.07 10^3/uL (0.0-0.2); Absolute Eosinophil Count 0.11 10^3/uL (0.0-0.7); Absolute Lymphocyte Count 1.81 10^3/uL (1.2-3.4); Absolute Monocyte Count 0.59 10^3/uL (0.1-0.8); Absolute Neutrophil Count 4.47 10^3/uL (1.2-6.7); Eosinophils % 1.6; HCT 49.7 % (40.0-50.0); Immature Grans % 0.3; Lymphocytes % 25.6; MCH 32.5 pg (27.0-33.0); MCHC 34.2 % (32.0-36.0); MPV 9.7 fL (8.0-11.0); Monocytes % 8.3; Neutrophils % 63.2; Nucleated RBC 0 %; Platelet Count 197 10^3/uL (130-400); RBC 5.23 10^6/uL (4.36-5.78); RDW 12.2 % (11.8-14.1); RDW-SD 43.2 fL; WBC 7.07 10^3/uL (4.4-10.8)
[2020-03-28 10:27] LABS: INR 0.9 (0.9-1.1); Prothrombin Time 9.4 sec (9.3-11.0)
[2020-03-28 11:24] LABS: ALT 125 U/L (16-63); AST 149 U/L (15-37); Albumin 4.8 g/dL (3.4-5.0); Alkaline Phosphatase 68 U/L (46-116); Anion Gap 11.1 mmol/L (3-11); BUN 4 mg/dL (7-18); Bilirubin, Total 0.7 mg/dL (0.2-1.0); CO2 24.9 mmol/L (21.0-32.0); Calcium 9.7 mg/dL (8.5-10.1); Chloride 101 mmol/L (98-107); GGT 109 U/L (15-85); Glucose 80 mg/dL (74-106); Potassium 4.4 mmol/L (3.5-5.1); Sodium 137 mmol/L (136-145); Total Protein 8.2 g/dL (6.4-8.2)
--- NOTE | 2020-03-28 14:06 | PDOC.ANES ---
Date of service: 03/28/20 Time of Service: 14:06 Anesthesia Note Report Anesthesia Note: After a request from Dr. Manrique, I reviewed Harjit's chart. While managing these scenarios can be very challenging, I recommend a stepwise approach in order to better understand as well as manage his alcohol use so we can safely address his hernia. 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 I would recommend that he get a CBC and CMP/LFT's as well as be seen by his PCP/Substance use specialist so he can be officially assessed for alcohol use disorder and determine if he has physical dependance or has had alcohol withdrawal symptoms in the past. From there, a plan could be formed to see if he would require inpatient monitoring, outpatient monitoring, or preoperative alcohol withdrawal prophylaxis prior to surgery. Once this is done, we would test his blood alcohol the morning of surgery. My hope is that we can maximize his success in having this procedure, as well as reduce his complication rate.
== END 2020-03-28 01:52 | disposition home or self-care (01) ==
LOC: LBO 01:51
PROVIDERS: PCP Nurse Practitioner; Visit Provider Surgery
DX: K76.0 Fatty (change of) liver, not elsewhere classified (principal); K21.9 Gastro-esophageal reflux disease without esophagitis; K22.2 Esophageal obstruction; K29.70 Gastritis, unspecified, without bleeding; K29.90 Gastroduodenitis, unspecified, without bleeding; F10.20 Alcohol dependence, uncomplicated; F17.200 Nicotine dependence, unspecified, uncomplicated; R91.1 Solitary pulmonary nodule; R94.5 Abnormal results of liver function studies
CPT/HCPCS: 36415; 80053; 80076; 82977; 85025; 85610

== ENCOUNTER 2020-04-12 06:06 | Day surgery (SDC) | payer MEDICAID, SELFPAY ==
[2020-04-12] VITALS (7 sets, daily range): BP systolic 89–148; BP diastolic 58–102; PULSE 56–86; RESP 12–20; TEMP 36.3–36.6; O2SAT 94–100
[2020-04-12] MEDS: Gabapentin 300 MG CAP PO (07:09)
[2020-04-12] MEDS: Acetaminophen 500 MG TAB 1000 MG PO (07:10)
[2020-04-12] MEDS: Lactated Ringers 1,000 ML 80 ML IV (07:11)
[2020-04-12] MEDS: ceFAZolin 2 GM/50 ML BAG IVPB (07:38)
[2020-04-12] MEDS: Bupivacaine 0.25% Pres-Free 30 ML VIAL ×2 (07:42→08:39)
[2020-04-12] MEDS: Bupivacaine LIPOSOME/PF 133 MG/10 ML VIAL IJ ×2 (07:42→08:38)
--- NOTE | 2020-04-12 09:05 | ROE_ITS ---
Date of service: 04/12/20 Time of Service: 09:06 Operative Note Operative Note DATE OF PROCEDURE: 04/12/20 PRE-OP DIAGNOSIS: left inguinal hernia POST-OP DIAGNOSIS: other indirect PROCEDURE: open repair SURGEON: Gregoria Yeung WIRE FRAME DIPPER: Yusuf Pruitt ANESTHESIA TYPE: Local By Surgeon and General:No Airway Refer to Anesthesia Record ESTIMATED BLOOD LOSS: 5 PATHOLOGY: none sent COMPLICATIONS: None Patient was transported to: PACU Procedure Description: INDICATIONS: The pt is here today for surgery regarding symptomatic left inguinal hernia that has failed outpatient conservative medical management and he is here today for repair. Informed consent was obtained, explaining risks and benefits of the procedure including but not limited to bleeding, infection, pneumonia, blood clots, chronic pain, chronic numbness, damage to testicle resulting in removal, recurrence of hernia, reaction to Mesh necessitating removal, and other unforetold complications, and complications of anesthesia-which were addressed by the DETECTIVE AND INTELLIGENCE ANALYST. The patient is marked in preOp prior to the procedure DESCRIPTION OF PROCEDURE: The pt is then brought to the operative room suite. Anesthesia was administered per the Department of Anesthesia. Postsurgical changes noted. He did have a previous hernia repair as a child. He did not have mesh placed. The patient was prepped and draped in the usual sterile fashion using ChloraPrep scrub solution. Pause for the cause was done. He did receive preop IV antibiotics, and 30 mL of .25% Marcaine w/ epinephrine was used for local anesthetization. A #12 blade was used to make an incision over the external ring. Electrocautery used to provide hemostasis and dissect down to the fascia. The fascia was pretty much obliterated and there was nothing to open. The cord is elevated. The nerve was identified, and is placed at the surgical field. there is no cord lipomas. Electro-cautery is used to provide hemostasis. A [place] drain was placed around the cord to assist in mobilization. The cord was explored. There was is large hernia sac on the cord. There is no direct hernia pushing through the floor. The hernia sac is dissected off the cord using a combination of blunt dissection and electrocautery. Electrocautery is used to provide hemostasis. There are no contents within the hernia sac. The hernia sac is than inverted and returned to the abdominal cavity. A XL size plug is than inserted into the defect through the internal ring, and over sewn to tighten up the ring with 2-0 vicryl. The cord structures are still able to freely move through the ring itself. The patch was then placed onto the floor, and using 2-0 Vicryl, sewn into the pubic tubercle and the shelving portions of the inguinal ligament, in the standard Lichenstein fashion. The tails of the mesh are brought around the cord, sewn together w/ 2-0 Vicryl, and tucked under the external oblique. The wound was copiously irrigated. There was no bleeding noted. The drain was removed. All structures are returned to normal anatomical position. The nerve is not sewn into the mesh, nor caught up in any sutures. The external oblique is re-approximated using 2-0 vicryl in a running fashion. Deep tissue was approximated with 3-0 Vicryl in a running fashion, and skin was approximated with 4-0 Monocryl in a running subcuticular fashion. Skin glue and sterile dressings are applied. The patient tolerated the procedure without complications to recovery in stable condition. GREGORIA YEUNG, DO
--- NOTE | 2020-04-12 09:38 | W.PM.DSUDISC ---
Discharge Plan Disposition Patient Disposition: HOME Condition: Good Discharge Details Reason For Visit: left inguinal hernia Attending Provider: Gregoria Manrique Primary Care Provider: Eileen De La Cruz Home Meds and New Rx's Prescriptions: New celecoxib [Celebrex] 200 mg capsule 200 mg PO BID Qty: 30 RF: 0 tramadol [Ultram] 50 mg tablet 50 mg PO Q6H PRNQty: 10 RF: 0 Discharge Instructions Additional Instructions: Caring for Your Incision You?ll need to help care for your incision after surgery and certain medical procedures. To close an incision, your healthcare provider used stitches (sutures), special strips of surgical tape called Steri-Strips, surgical mitesh, or surgical skin glue. Follow the tips on this sheet to help stop bleeding, speed healing, and prevent infection of your incision. Pain Control Use ice! Ice keeps the swelling down and swelling is what causes pain. Never apply ice directly to the skin. Wrap it in a towel or cloth. Apply ice 20 minutes on and 20 minutes off for pain control. Use as needed. Take tylenol 500 mg by mouth with food every 4 hours as needed for pain. Or ibuprofen 600 mg by mouth with food every 6 hours as needed for pain. Do not take tylenol if you have a history of heavy drinking , hepatits C or liver problems. Do not take ibuprofen if you have a history of stomach ulcers/problems, bleeding problem or kidney issues. Types of incision closures ? Surgical stitches (sutures) are placed by sewing the edges of an incision together with surgical thread. Sutures are either absorbable or non-absorbable. Absorbable sutures break down in the body over time. Non-absorbable sutures need to be removed. ? Home care ? Always wash your hands before touching your incision. ? Keep the incision clean, dry, and out of water, keep the incision out of water. ? Do not to pick at the scabs. Scabs help protect the wound. ? You can take a shower in 24 hours and wash the incision with soap and water. Pat dry/don?t scrub. It?s OK to wash around the incision. But don?t spray water directly on it. ? Pat stitches dry if they get wet. Don't rub. ? Check the incision site daily for pain, redness, drainage, swelling, or separation of the incision edges. ? If there is a bandage (dressing) over the incision, change this every 24 hours as instructed by your provider. Using clean hands change the dressing as directed by your healthcare provider. Always wash your hands before changing your dressing. ? Make sure any clothing that touches the incision is loose-fitting. This will prevent rubbing. If the incision is on the head, keep your child from wearing caps or other head coverings. These may rub against the incision. ? Try to avoid from rough play, contact sports, or physical activities for two weeks. This can put you at risk of opening the incision. ? Make sure you avoid doing things that could cause dirt or sweat to get in or on the incision. As your incision heals, the skin may appear pink or red. It may also feel slightly bumpy or raised. This is called a healing ridge. Over time, the color should fade and the raised skin will become less noticeable. Care for specific closures : ? Sutures or mitesh. Once you no longer need to keep these dry, clean the incision or wound daily, generally after the first 24 hours. First remove the bandage using clean hands. Then wash the area gently with soap and warm water. Use a wet cotton swab to loosen and remove any blood or crust that forms. After cleaning, put a thin layer of antibiotic ointment on. Then put on a new bandage. Follow-up care Mitesh or sutures generally need to be removed in 7-10 days. Be sure to return for suture or staple removal as directed. If dissolving stitches were used in your mouth, these will not need to be removed. They should fall out or dissolve on their own. If tape closures were used, remove them yourself when your healthcare provider tells you to if they have not fallen off on their own. When to seek medical care Call your healthcare provider right away if you have any of these: ? More pain, redness, swelling, bleeding, or foul-smelling discharge around the incision area ? Fever of 101?F (38.3?C) or higher, or as directed by your child's healthcare provider ? Shaking chills ? Vomiting or nausea that doesn?t go away ? Numbness, coldness, or tingling around the incision area, or changes in skin color ? Opening of the sutures or wound Stitches or mitesh come apart or fall out or surgical tape falls off before 7 days, or as directed by your healthcare provider [facility] to make appt w/ Dr. Manrique in 10 days. [phone] Activity:: see above Remove Dressings/Wound Care:: 24 hours Shower/Bathe:: 24 hours Diet:: As Tolerated Discharge Orders Discharge Orders: Discharge Order (Routine); Ordered 04/12/20 Ordered By: Gregoria Manrique DS: Diagnosis Discharge Diagnosis (1) S/P dilatation of esophageal stricture: Status: Acute (2) Pulmonary nodule: Status: Acute (3) Inguinal hernia: Status: Acute (4) Tobacco dependence: Status: Acute
== END 2020-04-12 11:35 | disposition home or self-care (01) ==
PROVIDERS: PCP Nurse Practitioner; Visit Provider Surgery
PROC: (CPT 49505; principal; 2020-04-12 07:30)
DX: K40.90 Unilateral inguinal hernia, without obstruction or gangrene, not specified as recurrent (principal); F17.210 Nicotine dependence, cigarettes, uncomplicated; K76.0 Fatty (change of) liver, not elsewhere classified; K21.9 Gastro-esophageal reflux disease without esophagitis
CPT/HCPCS: 49505; 76942; C1781; J0690; J1100; J2250; J2405; J2704

== ENCOUNTER 2020-07-09 21:27 | Emergency (ER) | payer MEDICAID, SELFPAY ==
--- NOTE | 2020-07-09 21:30 | DI.CT_ITS ---
Exam(s) CT HEAD CERVICAL SPINE WO EXAM: CT HEAD CERVICAL SPINE WO CLINICAL HISTORY: trauma. TECHNIQUE: Imaging Protocol: Axial computed tomography images with coronal and sagittal reformatted images were created and reviewed COMPARISON: No exams were available for comparison FINDINGS: CT Head: Ventricles and Extra axial spaces: Normal in size and morphology for the patient's age. Hemorrhage: None. Cerebral parenchyma: No acute territorial infarct. There are areas of decreased attenuation in the w ye matter most consistent with chronic microvascular ischemic disease. Midline shift: None. Brainstem/Cerebellum: Normal. Calvarium: There is deformity of the nasal bones. This may represent an acute or chronic nasal bone fracture. Please correlate clinically. Visualized Paranasal sinuses/Mastoids: Clear. Soft Tissues: There is a soft tissue laceration overlying the right frontal bone. No radiopaque fore ign bodies are identified. There is a small hematoma in the subcutaneous tissues overlying the left parietal bone. CT Cervical Spine: Bones: No acute fracture or subluxation. Degenerative changes are seen throughout the cervical spine. Soft Tissues: Unremarkable. Lung Apices: Clear. IMPRESSION: 1. No acute intracranial process. 2. Irregularity of the nasal bone. This may represent an acute or chronic nasal bone fracture. Plea se correlate clinically. 3. Soft tissue laceration and subcutaneous hematoma as described above. 4. No acute fracture or subluxation in the cervical spine. RADIATION DOSE DELIVERED: 1,263.75mGy.cm Total DLP DATA REPOSITORY: All CT scans at this facility are submitted to the National Radiology Data Registry (NRDR) Dose Index Registry (DIR) with the [employer] (A[employer]). RADIATION OPTIMIZATION: All CT scans at this facility use at least one of these dose optimization te chniques: automated exposure control; mA and/or kV adjustment per patient size (includes targeted exa ms where dose is matched to clinical indication); or iterative reconstruction.
[2020-07-09 21:35] VITALS: BP 138/96; PULSE 90; RESP 16; TEMP 36.6; O2SAT 98
--- NOTE | 2020-07-09 21:38 | ED.GENADUL_ITS ---
Discharge Plan Disposition Patient Disposition: AGAINST MEDICAL ADVICE Condition: Stable Discharge Details Clinical Impression: Alcohol intoxication, Laceration of forehead, Laceration of nose, Fracture of nasal bone Primary Care Provider: Eileen De La Cruz ED Provider: Sudeep Akers Home Meds and New Rx's Prescriptions: No Action No Known Home Meds RF: 0 Discharge Instructions Additional Instructions: Left without instructions Medical Decision Making Patient here status post fall outside on the railroad tracks. Denies loss of consciousness. Is neurologically intact but is intoxicated. Will obtain head and cervical spine CT scan due to intoxication. Will update tetanus. Will irrigate and close laceration once back from CT. Patient returned from head CT and was somewhat agitated because he felt like to wait was too long. I had been drawing up a lidocaine with epinephrine and already had everything else in the room. Had a discussion that he was not the only patient here in the ED. Ultimately able to diffuse and redirect the patient. Laceration was anesthetized with lidocaine with epi. Noted to have a smaller laceration measuring 0.5 cm on the bridge of the nose. Also found to have superficial 1 cm laceration middle of the forehead. All of these were irrigated and cleaned extensively. No foreign body visualized or felt any large right sided laceration. I had placed about 4 sutures in the large laceration to the right side of his forehead. An unresponsive patient in respiratory/cardiac arrest arrived unexpectedly in private vehicle. I excused myself from the room to attend to this patient. Once the patient had been stabilized, I requested HEATHER Holguin to complete the laceration repairs for me. When she went into the room to introduce herself, Mr. Leger became agitated and irate again. I was able to come into the room to try to diffuse the situation. However, patient continued to complain about his long wait and being ignored. Explained to him that that is why I had sent the PA in as I was going to be tied up with critical patient. Unable to reason with this gentleman. He stated that he was not going to keep his father waiting out in the parking lot. While he had been drinking today at this point in time his speech was clear and his gait was steady. He was also argumentative and agitated and with a critical patient requiring my attention in the department, Mr. Leger was discharged AMA. pumping station supervisor escorted patient out to the parking lot, but his father was not actually there. Patient brought back into ED waiting room and watched by security until father arrived to take him home. Patient did receive his tetanus booster. CT head and cervical spine were negative except for acute nasal bone fracture. Lacerations were open other than the 4 sutures placed when patient left AMA. HPI General Mode of arrival: ambulatory . Date/Time Provider Initiated Documentation: 07/09/20 21:38 . Limitations to Documentation: no limitations . Information obtained by: patient and RN notes reviewed . HPI Narrative: Patient presents to ED with large laceration to the right forehead status post fall on the railroad tracks earlier this evening. Patient has been drinking heavily today. He has a history of alcohol abuse. He denies loss of consciousness. He denies head or neck pain. He is ambulating on his own. Speech is actually relatively clear. He denies injury elsewhere though he does report breaking his nose a couple weeks ago. He has no complaints of chest pain, shortness of breath, abdominal pain, headache. Last tetanus with almost 10 years ago he thinks. Related Data Home Medications Medication Instructions Recorded Confirmed Unknown [No Known Home Meds] 07/09/20 07/09/20 Allergies Allergy/AdvReac Type Severity Reaction Status Date / Time No Known Allergies Allergy Unverified 07/09/20 21:42 General EUGENIA: 4 Review of Systems Narrative: As documented in HPI otherwise negative as below. Const: no fever, chills, weakness Resp: no cough, SOB, pleuritic pain CV: no CP, diaphoresis, edema, syncope GI: no abdominal pain, nausea, vomiting, diarrhea Neuro: no headache, numbness, focal weakness, confusion [facility] Medical History Benign esophageal stricture COPD (chronic obstructive pulmonary disease) Elevated LFTs Esophageal foreign body EtOH dependence Fatty liver Gastritis and gastroduodenitis GERD (gastroesophageal reflux disease) Tobacco dependence Surgical History History of esophagogastroduodenoscopy (EGD) 09/24/18 Dr Gregoria Manrique, [facility], with dilation, repeat as needed. History of left inguinal hernia repair (~04/12/20) Hx of foot surgery S/P dilatation of esophageal stricture dilation at [facility] on as as needed basis S/P left inguinal hernia repair Family History Mother No problems noted. Father No problems noted. Sister No problems noted. Brother No problems noted. Son No problems noted. Daughter No problems noted. Daughter No problems noted. Maternal Grandfather Lung cancer Paternal Grandfather Lung cancer Maternal Grandmother , age 89 No problems noted. Paternal Grandmother Lung cancer Social History Smoking/Tobacco Use Status: Current every day Tobacco Type: cigarettes Smoking packs per day: 1 Smoking cigarettes per day: 20.0 Years smoked: 35 Smoking pack- years: 35.00 Tobacco: How many years used: 35 Quit status: not considering quitting Smoking risk assessment performed?: Yes Alcohol Intake: current Alcohol Intake frequency: 3 or more drinks per day Alcohol type: beer Drug use: Daily Substance use type: marijuana Caregiver/Support person: No Household members: none Housing: homeless Do you need help understanding health information?: Never Pets and animals: No Sexually active: No Do you think of yourself as: straight/heterosexual Current gender identity: male What is your relationship status?: How often do you talk on the phone with friends or family?: once per week How often do you get together with friends or relatives?: once per week How often do you attend zoroastrianism or cheondoism services?: decline to answer Do you belong to any clubs or organized social groups?: no Panel score (0-1 are the most socially isolated patients): 0 What type of physical activity do you participate in: decline to answer Duration: decline to answer Frequency: decline to answer Meghana/Mu-Ism: Yarsani Special meghana needs: No Seatbelt use: never Helmet use: No Drive intox or ride w/intox school bus driver/mechanic: No Do you feel safe at home: Yes Do you feel safe in your relationship?: Yes Victim of physical abuse: No Victim of emotional abuse: No Victim of sexual abuse: No Would you like helpful sources: No Exam Narrative Exam Narrative: Const: WDWN male in NAD. HEENT: NC. 5 cm vertical, linear laceration right forehead. Does not involve muscle layer. Abrasions to bridge of nose. Nose deviated fair amount to the left. No facial bone tenderness. Eyes: PERRL and EOMI Neck: Supple. Trachea midline. No c-spine tenderness. Lungs: Normal respiratory effort. No chest wall tenderness. Cor: RRR. Good radial pulses. GI: Soft. NT/ND. No guarding or rebound. Neuro: A+O x 3. Normal speech, mentation, gait. Cranial nerves II - XII grossly intact. No gross motor or sensory deficit. Ext: No C/C/E. Skin: Warm and dry Procedures Laceration Laceration 1: Site: face Side (If applicable): right Size (cm): 5 Description: linear Depth: simple, single layer Local Anesthetic: Lidocaine 1% and with Epi Pre-repair: wound explored, irrigated extensively and deep structures intact Skin layer closed with: nylon Size (cm): 5-0 Number of sutures: 4 Technique: simple, interrupted
--- NOTE | 2020-07-09 22:25 | DI.VRAD_ITS ---
PROCEDURE INFORMATION: Exam: CT Head Without Contrast Exam date and time: 07/09/2020 9:40 PM Age: 55 years old Clinical indication: Injury or trauma; Fall; Blunt trauma (contusions or hematomas); Consciousness not specified; Patient HX: Trauma; Per PT: Walking on rr tracks and fell on tracks TECHNIQUE: Imaging protocol: Computed tomography of the head without contrast. COMPARISON: No relevant prior studies available. FINDINGS: Brain: There is mild age related parenchymal atrophy with prominence of the cortical sulci. Periventricular and deep white matter hypodensities are consistent with sequela of chronic microvascular ischemic disease. Bynum-white matter differentiation is preserved. No midline shift or herniation. No acute intracranial hemorrhage. Cerebral ventricles: No ventriculomegaly. Paranasal sinuses: Visualized sinuses are unremarkable. No fluid levels. Mastoid air cells: No mastoid effusion. Bones/joints: Nondisplaced irregularity of the nasal bone. Otherwise no acute osseous finding. Soft tissues: There is soft tissue laceration along the superolateral right orbit soft tissues. Also noted is small left parietal subcutaneous hematoma. IMPRESSION: 1. No acute intracranial finding. 2. Irregularity of the nasal bone. Correlate clinically for acute versus chronic nondisplaced nasal bone fracture. 3. Posttraumatic soft tissue changes as discussed. PROCEDURE INFORMATION: Exam: CT Cervical Spine Without Contrast Exam date and time: 07/09/2020 9:40 PM Age: 55 years old Clinical indication: Injury or trauma; Fall; Blunt trauma (contusions or hematomas); Consciousness not specified; Patient HX: Trauma; Per PT: Walking on rr tracks and fell on tracks TECHNIQUE: Imaging protocol: Computed tomography images of the cervical spine without contrast. COMPARISON: No relevant prior studies available. FINDINGS: Bones/joints: No acute fracture. No spondylolisthesis. Mild degenerative facet changes asymmetric to the left at C3-C4. Discs/Spinal canal/Neural foramina: Multilevel intervertebral disc height loss scattered throughout the cervical spine with relative sparing of C2-C3. Multilevel degenerative endplate changes at the C3-C7 levels with varying degrees mild to moderate multilevel osseous neural foraminal narrowing. Osseous central canal is patent. Thyroid: No mass. Lymph nodes: No pathologically sized nodes by CT size criteria. Lungs: Lung apices are clear. Soft tissues: No focal abnormality. IMPRESSION: 1. No acute fracture. 2. Cervical spondylosis. Dictated and Authenticated by: Royce Hull MD. Ordering:LUNA Sheets MD
[2020-07-09] MEDS: Tetanus & Diphtheria Tox,ADULT 0.5 ML VIAL IM (23:02)
== END 2020-07-10 01:50 | disposition left against medical advice (07) ==
PROVIDERS: Emergency Provider Emergency Medicine; PCP Nurse Practitioner
DX: S01.81XA Laceration without foreign body of other part of head, initial encounter (principal); S02.2XXA Fracture of nasal bones, initial encounter for closed fracture; S01.21XA Laceration without foreign body of nose, initial encounter; W01.198A Fall on same level from slipping, tripping and stumbling with subsequent striking against other object, initial encounter; F10.120 Alcohol abuse with intoxication, uncomplicated; Z53.29 Procedure and treatment not carried out because of patient's decision for other reasons
CPT/HCPCS: 12002; 90471; 99284; 70450; 72125; 99282

== ENCOUNTER 2020-07-15 09:15 | Emergency (ER) | payer MEDICAID, SELFPAY ==
[2020-07-15 09:20] VITALS: BP 165/96; PULSE 83; RESP 22; TEMP 36.5; O2SAT 98
--- NOTE | 2020-07-15 09:25 | W.ED.GENAD ---
Discharge Plan Disposition Patient Disposition: HOME Condition: Good Discharge Details Clinical Impression: Facial laceration, Closed fracture nasal bone Primary Care Provider: Eileen De La Cruz ED Provider: Chela Warren Home Meds and New Rx's Prescriptions: No Action No Known Home Meds RF: 0 Discharge Instructions Instructions: Nasal Fracture (ED), Head Injury (ED), Facial Laceration (ED) Additional Instructions: Demonstrating to the laceration Follow-up with the ENT doctor listed regarding your nasal bone fracture and see you be sure that your wound is healing well You may apply vitamin E cream at night your home Return earlier with spreading redness, fever, worsening pain Discharge Data Discharge Date/Time-TO BE ENTERED AT DEPARTURE: 07/15/20 09:35 Medical Decision Making Patient reports appears well, he is pleasant and ambulatory with steady gait His right actually is closing nicely and well approximated, no evidence of secondary infection 3 sutures were removed by me He is given referral to ENT for follow-up care of his wound and nasal bone fractures Given the threshold to return with new or worsening complaints discharged home in stable condition with stable vitals Differential Diagnosis Differential Diagnosis: Laceration, abrasion, contusion, cellulitis HPI General Mode of arrival: ambulatory. Date/Time Provider Initiated Documentation: 07/15/20 09:18. Limitations to Documentation: no limitations. Information obtained by: patient. HPI Narrative: This 55-year-old gentleman presents for suture removal after fall 5 days prior to arrival. Denies any current complaints aside from mild headache. Received a tetanus vaccination during his last encounter. States oriented feeling well although he did not have the mental he states room as he left against recommendation. Denies dizziness or weakness Related Data Home Medications Medication Instructions Recorded Confirmed Unknown [No Known Home Meds] 07/09/20 07/15/20 Allergies Allergy/AdvReac Type Severity Reaction Status Date / Time No Known Allergies Allergy Unverified 07/15/20 09:30 General EUGENIA: 2 Review of Systems Narrative: Review of systems obtained x3 aside from where indicated in HPI [facility] Medical History Benign esophageal stricture COPD (chronic obstructive pulmonary disease) Elevated LFTs Esophageal foreign body EtOH dependence Fatty liver Gastritis and gastroduodenitis GERD (gastroesophageal reflux disease) Tobacco dependence Surgical History History of esophagogastroduodenoscopy (EGD) 09/24/18 Dr Gregoria Manrique, [facility], with dilation, repeat as needed. History of left inguinal hernia repair (~04/12/20) Hx of foot surgery S/P dilatation of esophageal stricture dilation at [facility] on as as needed basis S/P left inguinal hernia repair Family History Mother No problems noted. Father No problems noted. Sister No problems noted. Brother No problems noted. Son No problems noted. Daughter No problems noted. Daughter No problems noted. Maternal Grandfather Lung cancer Paternal Grandfather Lung cancer Maternal Grandmother , age 89 No problems noted. Paternal Grandmother Lung cancer Social History Smoking/Tobacco Use Status: Current every day Tobacco Type: cigarettes Smoking packs per day: 1 Smoking cigarettes per day: 20.0 Years smoked: 35 Smoking pack-years: 35.00 Tobacco: How many years used: 35 Quit status: not considering quitting Smoking risk assessment performed?: Yes Alcohol Intake: current Alcohol Intake frequency: 3 or more drinks per day Alcohol type: beer Drug use: Daily Substance use type: marijuana Caregiver/Support person: No Household members: none Housing: homeless Do you need help understanding health information?: Never Pets and animals: No Sexually active: No Do you think of yourself as: straight/heterosexual Current gender identity: male What is your relationship status?: How often do you talk on the phone with friends or family?: once per week How often do you get together with friends or relatives?: once per week How often do you attend jainism or samaritan services?: decline to answer Do you belong to any clubs or organized social groups?: no Panel score (0-1 are the most socially isolated patients): 0 What type of physical activity do you participate in: decline to answer Duration: decline to answer Frequency: decline to answer Meghana/Jain: Latter-Day Special meghana needs: No Seatbelt use: never Helmet use: No Drive intox or ride w/intox ems driver: No Do you feel safe at home: Yes Do you feel safe in your relationship?: Yes Victim of physical abuse: No Victim of emotional abuse: No Victim of sexual abuse: No Would you like helpful sources: No Exam Const General: cooperative and no acute distress [facility] Head images: 1. Laceration, well-healing Mildly swollen Deformity No septal hematoma Eyes Pupils: PERRL
--- NOTE | 2020-07-15 16:42 | NUR.NOTE ---
Nursing Note: Referral faxed to ent for nasal fx - libl 07/15/20
== END 2020-07-15 09:35 | disposition home or self-care (01) ==
PROVIDERS: Emergency Provider Physician Assistant; PCP Nurse Practitioner
DX: Z48.02 Encounter for removal of sutures (principal); S01.81XD Laceration without foreign body of other part of head, subsequent encounter; W01.198D Fall on same level from slipping, tripping and stumbling with subsequent striking against other object, subsequent encounter

== ENCOUNTER 2020-08-05 08:52 | Outpatient (CLI) | payer MEDICAID, SELFPAY ==
--- NOTE | 2020-08-05 08:30 | DI.RAD_ITS ---
Exam(s) XR KNEE LT 4V AP,LAT,EDILIA,PAT EXAM: XR KNEE LT 4V AP,LAT,EDILIA,PAT CLINICAL HISTORY: left knee pain. TECHNIQUE: 2D digital imaging was performed. COMPARISON: No exams were available for comparison FINDINGS: BONES: No acute fracture is present. No bony destructive lesion is seen. JOINTS: There is mild narrowing of the medial femoral tibial joint. There is periarticular spurring and sclerosis. Patellofemoral joint and lateral femoral tibial joint show mild spurring and are norm ally maintained. The knee is normally aligned. No joint effusion is seen. SOFT TISSUE: Multiple loose bodies are seen in the posterior soft tissues. Is could lie within a Ayan er's cyst. IMPRESSION: Degenerative changes of the medial femoral tibial joint and loose bodies. DATA REPOSITORY: RADIATION DOSE DELIVERED:
--- NOTE | 2020-08-05 08:30 | DI.RAD_ITS ---
Exam(s) XR ANKLE LT COMPLETE EXAM: XR ANKLE LT COMPLETE CLINICAL HISTORY: left ankle pain TECHNIQUE: 2D digital imaging was performed. COMPARISON: CR,XR XR FOOT LT COMPLETE from 10/22/2019 CR,XR XR FOOT LT COMPLETE from 10/22/2019 FINDINGS: BONES: No acute fracture is present. There is an osteochondral defect of the medial talar dome. Thi s is faintly visible on a previous foot films. Small heel spur and mild degenerative changes are not ed JOINTS:The ankle mortise is normally aligned. SOFT TISSUE: Normal. IMPRESSION: Osteochondral defect of the medial talar dome. DATA REPOSITORY: RADIATION DOSE DELIVERED:
--- NOTE | 2020-08-05 08:45 | DI.RAD_ITS ---
Exam(s) XR FOOT LT COMPLETE EXAM: XR FOOT LT COMPLETE CLINICAL HISTORY: F/U FRACTURE. TECHNIQUE: 2D digital imaging was performed. COMPARISON: CR,XR XR FOOT LT COMPLETE from 10/22/2019 FINDINGS: BONES: There is an old fracture at the medial corner of the base of the proximal phalanx of the great toe which appears nonunited. No acute fracture is present. No bony destructive lesion is seen. Sm all heel spur is seen. There are degenerative changes greatest at the tarsal metatarsal joints. JOINTS: No dislocation present. SOFT TISSUE: Normal. IMPRESSION: Old, nonunited fracture at the base of the proximal phalanx of the great toe. Degenerative changes. DATA REPOSITORY: RADIATION DOSE DELIVERED:
== END 2020-08-05 08:53 | disposition home or self-care (01) ==
PROVIDERS: PCP Nurse Practitioner; Referring Provider Nurse Practitioner; Visit Provider Student in an Organized Health Care Education/Training Program
DX: M17.12 Unilateral primary osteoarthritis, left knee (principal); M23.42 Loose body in knee, left knee; M21.962 Unspecified acquired deformity of left lower leg; M19.072 Primary osteoarthritis, left ankle and foot; Z87.81 Personal history of (healed) traumatic fracture
CPT/HCPCS: 73564; 73610; 73630

== ENCOUNTER 2020-08-18 01:48 | Outpatient (CLI) | payer MEDICAID, SELFPAY ==
--- NOTE | 2020-08-18 06:30 | DI.MRI_ITS ---
Exam(s) MR LOWER JOINT LT WO EXAM: MR LOWER JOINT LT WO CLINICAL HISTORY: LEFT ANKLE PAIN,ARTHRITIS, M19.072. TECHNIQUE: Multiplanar multisequence MRI was performed.. COMPARISON: Plain films of the foot and ankle 05 August 2020 FINDINGS: There is an osteochondral defect of the medial talar dome. There is a subjacent cystic area. There is mild flattening of the medial talar dome but no visible separate fragment. There is mild overlyin g cartilage thinning. No tibiotalar joint effusion or loose body is seen. There is spurring at the dorsal aspect of the talonavicular joint. Spurring and degenerative signal changes are also noted at the tarsal metatarsal joints. No tendon abnormalities are seen. There is an os trigonum with a sma ll amount of adjacent fluid. There is no abnormal signal in the plantar fascia. IMPRESSION: Osteochondral defect of the medial talar dome with slight depression and overlying cartilage thinning . No insitu fragment or displaced fragment. Degenerative changes intertarsal and tarsometatarsal ynes ints. DATA REPOSITORY:
== END 2020-08-18 02:08 ==
PROVIDERS: PCP Nurse Practitioner; Visit Provider Student in an Organized Health Care Education/Training Program
DX: M19.072 Primary osteoarthritis, left ankle and foot (principal); M21.962 Unspecified acquired deformity of left lower leg; M94.8X7 Other specified disorders of cartilage, ankle and foot
CPT/HCPCS: 73721

== ENCOUNTER 2020-09-14 21:13 | Outpatient (REF) | payer MEDICAID, SELFPAY | END 2020-09-14 21:14 | disposition home or self-care (01) | LOC: NCHCN 21:13 | PROVIDERS: PCP Nurse Practitioner; Visit Provider Physician Assistant Medical | DX: L72.3 Sebaceous cyst (principal) | CPT/HCPCS: 87070; 87205 ==

== ENCOUNTER 2020-11-13 17:08 | Emergency (ER) | payer MEDICAID, SELFPAY ==
[2020-11-13] VITALS (19 sets, daily range): BP systolic 94–158; BP diastolic 75–114; PULSE 58–127; RESP 11–38; TEMP 36.3; O2SAT 95–100
--- NOTE | 2020-11-13 17:15 | DI.CT_ITS ---
Exam(s) CT HEAD CERV SPINE FACIAL WO EXAM: CT HEAD CERV SPINE FACIAL WO CLINICAL HISTORY: fall injury. TECHNIQUE: Imaging Protocol: Axial computed tomography images with coronal and sagittal reformatted images were created and reviewed COMPARISON: CT CT HEAD CERVICAL SPINE WO from 07/09/2020 FINDINGS: CT Head: Ventricles and Extra axial spaces: Normal in size and morphology for the patient's age. Hemorrhage: None. Cerebral parenchyma: Normal. Midline shift: None. Brainstem/Cerebellum: Normal. Calvarium: Normal. Visualized Paranasal sinuses/Mastoids: Clear. Soft Tissues: Frontal scalp laceration.. CT Face: Facial Bones: Comminuted nasal fractures with leftward displacement. No additional fractures identi fied. Sinuses and Mastoids: Mucous retention floor of left maxillary sinus. Globes, extraocular muscles, optic nerves and retrobulbar fat: Normal. Upper aerodigestive tract: Normal. Mandible and bilateral temporomandibular joints: Normal. Soft tissues: Frontal soft tissue swelling and scalp laceration. Swelling in the paranasal region. CT Cervical Spine: Bones: No acute fracture or subluxation. Degenerative disc changes and facet degenerative changes. Soft Tissues: Unremarkable. Lung Apices: Clear. IMPRESSION: 1. Frontal scalp laceration. No acute intracranial process. 2. No acute fracture or subluxation in the cervical spine. 3. Nasal fractures. RADIATION DOSE DELIVERED: 2,138.81mGy.cm Total DLP DATA REPOSITORY: All CT scans at this facility are submitted to the National Radiology Data Registry (NRDR) Dose Index Registry (DIR) with the [employer] (ACR). RADIATION OPTIMIZATION: All CT scans at this facility use at least one of these dose optimization te chniques: automated exposure control; mA and/or kV adjustment per patient size (includes targeted exa ms where dose is matched to clinical indication); or iterative reconstruction.
[2020-11-13 17:41] LABS: Source Nasal/Nares
--- NOTE | 2020-11-13 18:30 | DI.VRAD_ITS ---
PROCEDURE INFORMATION: Exam: CT Head Without Contrast Exam date and time: 11/13/2020 5:21 PM Age: 55 years old Clinical indication: Injury or trauma; Fall; Wound, open; Not specified; Forehead; Blunt trauma TECHNIQUE: Imaging protocol: Computed tomography of the head without contrast. COMPARISON: CT HEAD CERVICAL SPINE WO 07/09/2020 9:56 PM FINDINGS: Brain: Normal. No hemorrhage. Unremarkable white matter. No mass effect. Cerebral ventricles: No ventriculomegaly. Paranasal sinuses: Exudate is noted within the left maxillary sinus. No fluid levels. Mastoid air cells: Visualized mastoid air cells are well aerated. Bones/joints: Unremarkable. No acute fracture. Soft tissues: Frontal scalp laceration. IMPRESSION: No acute intracranial abnormality. PROCEDURE INFORMATION: Exam: CT Maxillofacial Without Contrast Exam date and time: 11/13/2020 5:21 PM Age: 55 years old Clinical indication: Injury or trauma; Fall; Wound, open; Not specified; Forehead; Blunt trauma TECHNIQUE: Imaging protocol: Computed tomography images of the face without contrast. COMPARISON: CT HEAD CERVICAL SPINE WO 07/09/2020 9:56 PM FINDINGS: Orbital cavity: Orbits are normal. Globes are unremarkable. Bones/joints: There is a comminuted nasal bone fracture with approximately 2 mm of displacement towards the left. The zygomatic arches and pterygoid plates appear intact. The orbital rodriguez appear intact. Paranasal sinuses: Exudate is noted within the left maxillary sinus. No air-fluid levels. Soft tissues: There is a deep frontal scalp laceration with gas in the soft tissues. Paranasal soft tissue swelling is also present. IMPRESSION: 1. Comminuted fracture of the nasal bone with mild displacement towards the left. 2. Frontal scalp laceration and paranasal soft tissue swelling as described above. PROCEDURE INFORMATION: Exam: CT Cervical Spine Without Contrast Exam date and time: 11/13/2020 5:21 PM Age: 55 years old Clinical indication: Injury or trauma; Fall; Wound, open; Not specified; Forehead; Blunt trauma TECHNIQUE: Imaging protocol: Computed tomography images of the cervical spine without contrast. COMPARISON: CT HEAD CERVICAL SPINE WO 07/09/2020 9:56 PM FINDINGS: Bones/joints: No acute fracture. Normal alignment. Discs/Spinal canal/Neural foramina: Chronic degenerative changes of the spine are present. Lungs: Lung apices are normal. Soft tissues: Unremarkable. IMPRESSION: Chronic degenerative changes with no acute fracture or subluxation. Dictated and Authenticated by: David Lake MD. Ordering:TEJINDER Bean MD
--- NOTE | 2020-11-13 18:36 | ED.GENADUL_ITS ---
Discharge Plan Disposition Patient Disposition: HOME Condition: Stable Discharge Details Clinical Impression: Head injury without skull fracture, Laceration of head Primary Care Provider: Eileen De La Cruz ED Provider: Geneva Mo Home Meds and New Rx's Prescriptions: New cephalexin 500 mg tablet 500 mg PO QID Qty: 20 RF: 0 Continued lisinopril 40 mg tablet 40 mg PO DAILY Qty: 40 RF: 0 Discharge Instructions Instructions: Laceration (ED), Head Injury (ED) Additional Instructions: keep incision clean and dry. wash daily with warm soapy water, rinse well, pat dry gently. can apply thin layer of antibiotic ointment. report sign of infection including redness, fever or drainage. take antibiotic as directed. can use over the counter pain medication as directed Referrals: [facility] [Provider Group] (return in 7 days for suture removal) Eileen De La Cruz, [facility]THOPED[facility] PODIATRIST [Primary Care Provider] - Discharge Data Discharge Date/Time-TO BE ENTERED AT DEPARTURE: 11/13/20 20:30 Medical Decision Making fall with facial injury, denies any other c/o. bleeding controlled tetanus was updated in june 2020, reports mechanical fall. will CT head, neck facial bones. nasal bone fracture, will give ancef 1 gm consulted surgery for repair. face repaired by Dr Rubin. Medical Records Medical records reviewed: Yes I reviewed the patient's medical records. Imaging Data Radiologic Study: Imaging: CT Scan Radiologist's impression: PROCEDURE INFORMATION: Exam: CT Head Without Contrast Exam date and time: 11/13/2020 5:21 PM Age: 55 years old Clinical indication: Injury or trauma; Fall; Wound, open; Not specified; Forehead; Blunt trauma TECHNIQUE: Imaging protocol: Computed tomography of the head without contrast. COMPARISON: CT HEAD CERVICAL SPINE WO 07/09/2020 9:56 PM FINDINGS: Brain: Normal. No hemorrhage. Unremarkable white matter. No mass effect. Cerebral ventricles: No ventriculomegaly. Paranasal sinuses: Exudate is noted within the left maxillary sinus. No fluid levels. Mastoid air cells: Visualized mastoid air cells are well aerated. Bones/joints: Unremarkable. No acute fracture. Soft tissues: Frontal scalp laceration. IMPRESSION: No acute intracranial abnormality. PROCEDURE INFORMATION: Exam: CT Maxillofacial Without Contrast Exam date and time: 11/13/2020 5:21 PM Age: 55 years old Clinical indication: Injury or trauma; Fall; Wound, open; Not specified; Forehead; Blunt trauma TECHNIQUE: Imaging protocol: Computed tomography images of the face without contrast. COMPARISON: CT HEAD CERVICAL SPINE WO 07/09/2020 9:56 PM FINDINGS: Orbital cavity: Orbits are normal. Globes are unremarkable. Bones/joints: There is a comminuted nasal bone fracture with approximately 2 mm of displacement towards the left. The zygomatic arches and pterygoid plates appear intact. The orbital rodriguez appear intact. Paranasal sinuses: Exudate is noted within the left maxillary sinus. No air-fluid levels. Soft tissues: There is a deep frontal scalp laceration with gas in the soft tissues. Paranasal soft tissue swelling is also present. IMPRESSION: 1. Comminuted fracture of the nasal bone with mild displacement towards the left. 2. Frontal scalp laceration and paranasal soft tissue swelling as described above. PROCEDURE INFORMATION: Exam: CT Cervical Spine Without Contrast Exam date and time: 11/13/2020 5:21 PM Age: 55 years old Clinical indication: Injury or trauma; Fall; Wound, open; Not specified; Forehead; Blunt trauma TECHNIQUE: Imaging protocol: Computed tomography images of the cervical spine without contrast. COMPARISON: CT HEAD CERVICAL SPINE WO 07/09/2020 9:56 PM FINDINGS: Bones/joints: No acute fracture. Normal alignment. Discs/Spinal canal/Neural foramina: Chronic degenerative changes of the spine are present. Lungs: Lung apices are normal. Soft tissues: Unremarkable. IMPRESSION: Chronic degenerative changes with no acute fracture or subluxation. Dictated and Authenticated by: David Lake MD. Ordering:TEJINDER Bean MD HPI General Information obtained by: patient and family (father) . HPI Narrative: patient presents for evaluation of head injury with laceration that [place]. reports mechanical fall. denies any other pain than forehead. denies LOC, no cspine tenderness. bleeding is controlled. tetanus was updated in June 2020. Related Data Home Medications Medication Instructions Recorded Confirmed lisinopril 40 mg tablet 40 mg PO DAILY #40 tab 10/20/20 11/13/20 cephalexin 500 mg PO QID #20 tab 11/13/20 Previous Rx's Medication Instructions Recorded lisinopril 40 mg tablet 40 mg PO DAILY #40 tab 10/20/20 cephalexin 500 mg PO QID #20 tab 11/13/20 Allergies Allergy/AdvReac Type Severity Reaction Status Date / Time No Known Allergies Allergy Verified 11/13/20 17:25 General Stated Complaint: HeadInjury EUGENIA: 2 Review of Systems All systems reviewed & are unremarkable except as noted in HPI and below Constitutional Constitutional: Denies frequent falls and Denies headache(s) Eyes Eyes: Denies change in vision and Denies loss of vision ENT Ears, Nose, Mouth, and Throat: Denies dental pain, Denies vertigo, Denies dizziness, Reports facial pain, Denies headache(s) and Reports nasal trauma Cardiovascular Cardiovascular: Denies chest pain and Denies dyspnea Respiratory Respiratory: Denies dyspnea Gastrointestinal Gastrointestinal: Denies nausea Integumentary/Breasts Skin/Breast: Reports lesions (laceration) Neurologic Neurologic: Denies vertigo, Denies dizziness, Denies frequent falls, Denies head ache(s) and Denies loss of vision [facility] Medical History Benign esophageal stricture COPD (chronic obstructive pulmonary disease) Elevated LFTs Esophageal foreign body EtOH dependence Fatty liver Fracture of nasal bone Gastritis and gastroduodenitis GERD (gastroesophageal reflux disease) Tobacco dependence Surgical History History of esophagogastroduodenoscopy (EGD) 09/24/18 Dr Gregoria Manrique, [facility], with dilation, repeat as needed. History of left inguinal hernia repair (~04/12/20) Hx of foot surgery S/P dilatation of esophageal stricture dilation at [facility] on as as needed basis S/P left inguinal hernia repair Family History Mother No problems noted. Father No problems noted. Sister No problems noted. Brother No problems noted. Son No problems noted. Daughter No problems noted. Daughter No problems noted. Maternal Grandfather Lung cancer Paternal Grandfather Lung cancer Maternal Grandmother , age 89 No problems noted. Paternal Grandmother Lung cancer Social History Smoking/Tobacco Use Status: Current every day Tobacco Type: cigarettes Smoking packs per day: 1 Smoking cigarettes per day: 20.0 Years smoked: 35 Smoking pack-years: 35.00 Tobacco: How many years used: 35 Quit status: not considering quitting Smoking risk assessment performed?: Yes Alcohol Intake: current Alcohol Intake frequency: 3 or more drinks per day Alcohol type: beer Drug use: Daily Substance use type: marijuana Caregiver/Support person: No Household members: none Housing: homeless Do you need help understanding health information?: Never Pets and animals: No Sexually active: No Do you think of yourself as: straight/heterosexual Current gender identity: male What is your relationship status?: How often do you talk on the phone with friends or family?: once per week How often do you get together with friends or relatives?: once per week How often do you attend hindu or alevism services?: decline to answer Do you belong to any clubs or organized social groups?: no Panel score (0-1 are the most socially isolated patients): 0 What type of physical activity do you participate in: decline to answer Duration: decline to answer Frequency: decline to answer Meghana/Congregation: Nondenominational Special meghana needs: No Seatbelt use: never Helmet use: No Drive intox or ride w/intox chain saw driver: No Do you feel safe at home: Yes Do you feel safe in your relationship?: Yes Victim of physical abuse: No Victim of emotional abuse: No Victim of sexual abuse: No Would you like helpful sources: No Exam Const General: cooperative, comfortable, disheveled and ill appearing (older than stated age) chronically Nutritional Appearance: thin Orientation: alert, awake and oriented x3 HENMT Head: laceration Head images: 1. full thickness 2. full thickness General nose exam: no nasal discharge Mouth: oral mucosae normal Eyes General: appearance normal, both eyes and all related structures Resp Effort & Inspection: normal respiratory effort and able to speak in complete sentences Cardio Rate: regular rate Rhythm: regular rhythm GI Inspection: normal to inspection Palpation: soft Back/Spine/Pelvis Cervical Spine: No cervical spinal tenderness Skin Lesions: lesion noted (right forehead extends to nose, ) Neuro General: patient alert, patient awake, patient oriented x3 and moves all ex tremities Speech: speech normal Motor: muscle tone normal throughout Extrem General: normal to inspection and full ROM Course Vital Signs Vital signs: Vital Signs Temperature 36.3 C L 11/13/20 17:15 Pulse 107 H 11/13/20 17:15 Respiratory Rate 16 11/13/20 17:15 Blood Pressure 158/97 H 11/13/20 17:15 Pulse Oximetry 99 11/13/20 17:15 Temperature 36.3 C L 11/13/20 17:15 Temperature Source Skin 11/13/20 17:15 Pulse 107 H 11/13/20 17:15 Respiratory Rate 16 11/13/20 17:15 Respiratory Effort Non-Labored 11/13/20 18:08 Respiratory Depth Normal 11/13/20 18:08 Respiratory Pattern Normal 11/13/20 18:08 Blood Pressure 158/97 H 11/13/20 17:15 Blood Pressure Position Supine 11/13/20 17:15 Pulse Oximetry 99 11/13/20 17:15 Pain Level 1 11/13/20 17:15 Lab/Test Results Lab/Test Results: Laboratory Tests Range/Units 11/13/20 17:30 COVID-19 Source Nasal/Nares
[2020-11-13 18:43] LABS: COVID-19 PCR Negative (Negative)
[2020-11-13] MEDS: Lidocaine 2% Multi-Dose 50 ML VIAL (19:18)
--- NOTE | 2020-11-13 20:29 | W.SURGCON ---
Assessment and Plan Assessment and plan (1) Laceration of head: Status: Acute Assessment and plan: -Laceration was copiously irrigated and cleaned with betadine -21 total 5-0 prolene sutures were used to close the laceration in an interrupted fashion -Patient was given IV ancef and will be discharged home with keflex -Sutures may be removed in 5-7 days -Tetanus UTD Qualifiers: Encounter type: initial encounter Location of open wound of head: other part of head Foreign body presence: without foreign body Qualified Code(s): S01.81XA - Laceration without foreign body of other part of head, initial encounter (2) Head injury without skull fracture: Status: Acute Assessment and plan: -Concussion precautions Qualifiers: Encounter type: initial encounter Qualified Code(s): S09.90XA - Unspecified injury of head, initial encounter (3) Excessive drinking alcohol: Status: Acute Assessment and plan: -Advised reducing intake to avoid sustaining another potentially more serious injury (4) EtOH dependence: Status: Acute Qualifiers: Substance use status: with intoxication Complication of substance-induced condition: with unspecified complication Qualified Code(s): F10.229 - Alcohol dependence with intoxication, unspecified (5) Tobacco dependence: Status: Acute Assessment and plan: -Advised reduction or quitting as smoking directly impairs wound healing History of Present Illness Narrative: 55 year old male who fell and hit his forehead while walking [place] the train tracks. Patient denies any loss of consciousness but was alone at the time the injury occurred. He called his dad who had trouble finding him but was able to bring him to the emergency department for evaluation. This is not the first time he has fallen while walking along the train tracks. CT of his head/face was negative for acute fracture or intracranial injury. He did fracture his nose last time he fell and those fractures are still evident. I was consulted to repair the large facial laceration that the patient sustained during the fall. Consults Consult date: 11/13/20 Requesting physician: Geneva Mo Review of Systems Constitutional Constitutional: Reports as per HPI, Reports frequent falls and Reports headache(s) ENT Ears, Nose, Mouth, and Throat: Reports facial pain, Reports headache(s) and Reports other (large forehead laceration) Cardiovascular Cardiovascular: Denies chest pain, Denies syncope and Denies dyspnea Respiratory Respiratory: Denies dyspnea Musculoskeletal Musculoskeletal: Denies deformity, Denies numbness and Denies tingling Neurologic Neurologic: Denies syncope, Reports frequent falls, Reports headache(s), Denies numbness and Denies tingling [facility] Medical History Benign esophageal stricture COPD (chronic obstructive pulmonary disease) Elevated LFTs Esophageal foreign body EtOH dependence Fatty liver Fracture of nasal bone Gastritis and gastroduodenitis GERD (gastroesophageal reflux disease) Tobacco dependence Surgical History History of esophagogastroduodenoscopy (EGD) 09/24/18 Dr Gregoria Manrique, [facility], with dilation, repeat as needed. History of left inguinal hernia repair (~04/12/20) Hx of foot surgery S/P dilatation of esophageal stricture dilation at [facility] on as as needed basis S/P left inguinal hernia repair Family History Mother No problems noted. Father No problems noted. Sister No problems noted. Brother No problems noted. Son No problems noted. Daughter No problems noted. Daughter No problems noted. Maternal Grandfather Lung cancer Paternal Grandfather Lung cancer Maternal Grandmother , age 89 No problems noted. Paternal Grandmother Lung cancer Social History Smoking/Tobacco Use Status: Current every day Tobacco Type: cigarettes Smoking packs per day: 1 Smoking cigarettes per day: 20.0 Years smoked: 35 Smoking pack-years: 35.00 Tobacco: How many years used: 35 Quit status: not considering quitting Smoking risk assessment performed?: Yes Alcohol Intake: current Alcohol Intake frequency: 3 or more drinks per day Alcohol type: beer Drug use: Daily Substance use type: marijuana Caregiver/Support person: No Household members: none Housing: homeless Do you need help understanding health information?: Never Pets and animals: No Sexually active: No Do you think of yourself as: straight/heterosexual Current gender identity: male What is your relationship status?: How often do you talk on the phone with friends or family?: once per week How often do you get together with friends or relatives?: once per week How often do you attend rastafarian or congregational services?: decline to answer Do you belong to any clubs or organized social groups?: no Panel score (0-1 are the most socially isolated patients): 0 What type of physical activity do you participate in: decline to answer Duration: decline to answer Frequency: decline to answer Meghana/Congregational: Sabianism Special meghana needs: No Seatbelt use: never Helmet use: No Drive intox or ride w/intox bellman driver: No Do you feel safe at home: Yes Do you feel safe in your relationship?: Yes Victim of physical abuse: No Victim of emotional abuse: No Victim of sexual abuse: No Would you like helpful sources: No Exam Const General: cooperative, comfortable, no acute distress and intoxicated appearing HENMT Head: laceration forehead and nose irregular, flap, avulsion, actively bleeding and involving subcutaneous tissue; without pulsatile bleeding Ears: hearing grossly normal bilaterally Face and sinus: laceration nasal bridge Eyes General: appearance normal, both eyes and all related structures Eyelids: eyelids normal Sclera: sclerae normal Cornea: corneas normal Resp Effort & Inspection: normal respiratory effort, no audible wheezes and no respiratory distress GI Palpation: soft and nontender Skin Trauma: laceration (see above, across forehead and nasal bridge) Neuro General: patient alert, patient awake and patient oriented x3 Speech: speech normal Results Last Vital Signs Temp 97.3 F L 11/13/20 17:15 Pulse 58 L 11/13/20 20:15 Resp 11 L 11/13/20 20:15 BP 134/77 11/13/20 20:15 Pulse Ox 99 11/13/20 20:15 Labs Labs: Laboratory Results - last 24 hr 11/13/20 17:30 COVID-19 Source Nasal/Nares SARS-CoV-2 (PCR) Negative
== END 2020-11-13 20:30 | disposition home or self-care (01) ==
PROVIDERS: Emergency Provider Nurse Practitioner Acute Care; PCP Nurse Practitioner
DX: S01.81XA Laceration without foreign body of other part of head, initial encounter (principal); W01.198A Fall on same level from slipping, tripping and stumbling with subsequent striking against other object, initial encounter
CPT/HCPCS: 87635; 96365; 99284; 70450; 70486; 72125; 99283; J0690

== ENCOUNTER 2020-11-21 12:02 | Emergency (ER) | payer MEDICAID, SELFPAY ==
[2020-11-21 12:10] VITALS: BP 132/84; PULSE 80; RESP 18; TEMP 36.7; O2SAT 100
--- NOTE | 2020-11-21 12:24 | ED.GENADUL_ITS ---
Discharge Plan Disposition Patient Disposition: HOME Condition: Stable Discharge Details Clinical Impression: Face lacerations Primary Care Provider: Eileen De La Cruz ED Provider: Chela Warren Home Meds and New Rx's Prescriptions: No Action lisinopril 40 mg tablet 40 mg PO DAILY Qty: 90 RF: 4 Discharge Instructions Instructions: Facial Laceration (ED) Additional Instructions: Please continue to keep clean and dry You are doing a great job with wound care, continue to do so Make sure you wear sunscreen Return earlier with spredading redness, fever, vomiting, headache, or should you have new or worsening complaints Discharge Data Discharge Date/Time-TO BE ENTERED AT DEPARTURE: 11/21/20 12:40 Medical Decision Making Sutures removed by me without incident, Discharged home in stable condition with stable vitals Nonfocal neurological exam HPI General Mode of arrival: ambulatory . Date/Time Provider Initiated Documentation: 11/21/20 12:03 . Limitations to Documentation: no limitations . Information obtained by: patient . HPI Narrative: This 55-year-old gentleman p resents status post significant head injury with laceration which occurred approximately 2 weeks ago. He presents for suture laceration only. He denies any dizziness, vomiting, redness or new pain complaints. Related Data Home Medications Medication Instructions Recorded Confirmed lisinopril 40 mg tablet 40 mg PO DAILY #90 tab 11/17/20 11/22/20 Previous Rx's Medication Instructions Recorded lisinopril 40 mg tablet 40 mg PO DAILY #90 tab 11/17/20 Allergies Allergy/AdvReac Type Severity Reaction Status Date / Time No Known Allergies Allergy Verified 11/22/20 16:20 General Stated Complaint: Recheck EUGENIA: 5 Review of Systems Narrative: review Of systems obtained x3 and negative aside from indication in HPI [facility] Medical History Benign esophageal stricture COPD (chronic obstructive pulmonary disease) Elevated LFTs Esophageal foreign body EtOH dependence Fatty liver Fracture of nasal bone Gastritis and gastroduodenitis GERD (gastroesophageal reflux disease) Tobacco dependence Surgical History History of esophagogastroduodenoscopy (EGD) 09/24/18 Dr Gregoria Manrique, [facility], with dilation, repeat as needed. History of left inguinal hernia repair (~04/12/20) Hx of foot surgery S/P dilatation of esophageal stricture dilation at [facility] on as as needed basis S/P left inguinal hernia repair Family History Mother No problems noted. Father No problems noted. Sister No problems noted. Brother No problems noted. Son No problems noted. Daughter No problems noted. Daughter No problems noted. Maternal Grandfather Lung cancer Paternal Grandfather Lung cancer Maternal Grandmother , age 89 No problems noted. Paternal Grandmother Lung cancer Social History Smoking/Tobacco Use Status: Current every day Tobacco Type: cigarettes Smoking packs per day: 1 Smoking cigarettes per day: 20.0 Years smoked: 35 Smoking pack- years: 35.00 Tobacco: How many years used: 35 Quit status: not considering quitting Smoking risk assessment performed?: Yes Alcohol Intake: current Alcohol Intake frequency: 3 or more drinks per day Alcohol type: beer Drug use: Daily Substance use type: marijuana Caregiver/Support person: No Household members: none Housing: homeless Do you need help understanding health information?: Never Pets and animals: No Sexually active: No Do you think of yourself as: straight/heterosexual Current gender identity: male What is your relationship status?: How often do you talk on the phone with friends or family?: once per week How often do you get together with friends or relatives?: once per week How often do you attend confucianism or voodoo services?: decline to answer Do you belong to any clubs or organized social groups?: no Panel score (0-1 are the most socially isolated patients): 0 What type of physical activity do you participate in: decline to answer Duration: decline to answer Frequency: decline to answer Meghana/Hoahaoism: Muslim Special meghana needs: No Seatbelt use: never Helmet use: No Drive intox or ride w/intox experienced truck driver: No Do you feel safe at home: Yes Do you feel safe in your relationship?: Yes Victim of physical abuse: No Victim of emotional abuse: No Victim of sexual abuse: No Would you like helpful sources: No Exam Const General: cooperative, comfortable and no acute distress [facility] Head: normal to inspection Head images: 1. Flap noted, no dehiscence, no evidence of secondary infection 2. Eyes Pupils: PERRL Neuro General: patient alert Course Vital Signs Vital signs: Vital Signs Temperature 36.7 C 11/21/20 12:10 Pulse 80 11/21/20 12:10 Respiratory Rate 18 11/21/20 12:10 Blood Pressure 132/84 11/21/20 12:10 Pulse Oximetry 100 11/21/20 12:10 Temperature 36.7 C 11/21/20 12:10 Temperature Source Tympanic 11/21/20 12:10 Pulse 80 11/21/20 12:10 Respiratory Rate 18 11/21/20 12:10 Blood Pressure 132/84 11/21/20 12:10 Pulse Oximetry 100 11/21/20 12:10 Oxygen Delivery Method Room Air 11/21/20 12:10 Oxygen Flow Rate 0 11/21/20 12:10 Pain Level 5 11/21/20 12:10
== END 2020-11-21 12:40 | disposition home or self-care (01) ==
PROVIDERS: Emergency Provider Physician Assistant; PCP Nurse Practitioner
DX: S01.81XD Laceration without foreign body of other part of head, subsequent encounter (principal); W18.39XD Other fall on same level, subsequent encounter; Z48.02 Encounter for removal of sutures

== ENCOUNTER 2021-01-25 00:18 | Outpatient (CLI) | payer MEDICAID, SELFPAY ==
--- NOTE | 2021-01-25 06:30 | DI.CT_ITS ---
Exam(s) CT CHEST WO EXAM: CT CHEST WO CLINICAL HISTORY: 12 mo f/u,f/u pulmonary nodules, r91.1. TECHNIQUE: Multi planar reconstructions were performed. CONTRAST MATERIAL: None COMPARISON: CT CT CHEST WO from 02/10/2020 FINDINGS: CHEST: LUNGS: There is an unchanged 5 millimeter nodule in the superior segment of the right lower lobe. Be nign-appearing subpleural markings in the anterior segment right upper lobe are unchanged. There are no new significant right lung findings. No pleural effusions. In the opposite-left lung previously described 4 millimeter noncalcified nodule the left lower lobe is unchanged. There are no new addit ional lung nodules and there no pleural effusions on either side. MEDIASTINUM: There is no obvious hilar nor mediastinal adenopathy. Visualized thyroid unremarkable.No obvious axillary adenopathy CARDIAC: Heart size is normal. There is no pericardial effusion.Caliber of the thoracic aorta is wit hin normal limits. VISUALIZED UPPER ABDOMEN:No adrenal masses. OSSEOUS: No significant osseous lesions.. IMPRESSION: 1. Stable small bilateral pulmonary nodules, unchanged from prior study of 02/10/2020. No new nodule s in either lung field and no pleural effusions. 2. No intrathoracic adenopathy evident on this study RADIATION DOSE DELIVERED: 431.51mGy.cm Total DLP DATA REPOSITORY: All CT scans at this facility are submitted to the National Radiology Data Registry (NRDR) Dose Index Registry (DIR) with the [employer] ([employer]). RADIATION OPTIMIZATION: All CT scans at this facility use at least one of these dose optimization te chniques: automated exposure control; mA and/or kV adjustment per patient size (includes targeted exa ms where dose is matched to clinical indication); or iterative reconstruction.
== END 2021-01-25 00:38 ==
PROVIDERS: PCP Nurse Practitioner; Visit Provider Nurse Practitioner
DX: R91.8 Other nonspecific abnormal finding of lung field (principal); R91.1 Solitary pulmonary nodule
CPT/HCPCS: 71250

== ENCOUNTER 2021-02-07 03:04 | Outpatient (CLI) | payer MEDICAID, SELFPAY ==
[2021-02-07 11:26] LABS: ALT 22 U/L (16-63); AST 10 U/L (15-37); Albumin 4.5 g/dL (3.4-5.0); Alkaline Phosphatase 72 U/L (46-116); Bilirubin, Total 0.6 mg/dL (0.2-1.0); Calculated LDL 133 mg/dL (<100); Cholesterol 209 mg/dL (<200); HDL Cholesterol 60 mg/dL (40-60); Potassium 4.8 mmol/L (3.5-5.1); Total Protein 7.9 g/dL (6.4-8.2); Triglyceride 84 mg/dL (<150)
[2021-02-07 11:36] LABS: Bilirubin, Direct 0.1 mg/dL (0.0-0.2)
== END 2021-02-07 03:05 | disposition home or self-care (01) ==
LOC: LBO 03:04
PROVIDERS: PCP Nurse Practitioner; Visit Provider Nurse Practitioner
DX: I10 Essential (primary) hypertension (principal); R94.5 Abnormal results of liver function studies; Z13.220 Encounter for screening for lipoid disorders
CPT/HCPCS: 36415; 80061; 80076; 82565; 84132

== ENCOUNTER 2021-02-24 16:28 | Outpatient (REF) | payer MEDICAID, SELFPAY | END 2021-02-24 16:29 | disposition home or self-care (01) | LOC: LBN 16:28 | PROVIDERS: PCP Nurse Practitioner; Visit Provider Family Medicine | DX: R21 Rash and other nonspecific skin eruption (principal) | CPT/HCPCS: 87077; 87070; 87205 ==

== ENCOUNTER 2021-03-30 02:40 | Outpatient (CLI) | payer MEDICAID, SELFPAY ==
[2021-03-30 13:35] LABS: TSH 2.86 uIU/mL (0.36-3.74); Vitamin B12 314 pg/mL (193-986)
== END 2021-03-30 02:41 | disposition home or self-care (01) ==
PROVIDERS: PCP Nurse Practitioner; Visit Provider Nurse Practitioner Adult Health
DX: R41.3 Other amnesia (principal)
CPT/HCPCS: 36415; 82607; 84443

== ENCOUNTER 2021-04-19 15:46 | Outpatient (CLI) | payer MEDICAID, SELFPAY ==
--- NOTE | 2021-04-19 14:38 | DI.RAD_ITS ---
Exam(s) XR ANKLE LT COMPLETE EXAM: XR ANKLE LT COMPLETE CLINICAL HISTORY: LEFT ANKLE PAIN TECHNIQUE: COMPARISON: CR XR ANKLE LT COMPLETE from 08/05/2020 FINDINGS: Four views were obtained. The previously described apparent osteochondral defect of the medial aspec t of the dome of the talus is again seen. There is now a question of minimal cortical deformity at t his site. This is only seen on one view. Minimal cortical deformity was also noted on the MR examin ation of August 2020. The ankle mortise appears well maintained. Apart from minimal degenerative marginal osteophyte forma tion of multiple joints, no other significant finding. IMPRESSION: Fairly stable appearance of osteochondral defect of medial talar dome. Little if any interval change from radiographs of 08/05/2020 RADIATION DOSE DELIVERED: Total DLP
--- NOTE | 2021-04-19 14:45 | DI.RAD_ITS ---
Exam(s) XR ANKLE RT COMPLETE EXAM: XR ANKLE RT COMPLETE CLINICAL HISTORY: right ankle pain TECHNIQUE: COMPARISON: CR XR ANKLE LT COMPLETE from 04/19/2021 FINDINGS: Three views were obtained. The ankle mortise appears well maintained. There is an approximately 8 m illimeter in diameter cystic lesion of the medial talar dome. The overlying cortex appears intact. No other significant bony abnormality seen. IMPRESSION: Presumed osteochondral defect medial talar dome. RADIATION DOSE DELIVERED: Total DLP
== END 2021-04-19 15:47 | disposition home or self-care (01) ==
LOC: DIORS 15:47
PROVIDERS: PCP Nurse Practitioner; Visit Provider Student in an Organized Health Care Education/Training Program
DX: M21.861 Other specified acquired deformities of right lower leg; M21.862 Other specified acquired deformities of left lower leg; M25.571 Pain in right ankle and joints of right foot; M25.572 Pain in left ankle and joints of left foot
CPT/HCPCS: 73610

== ENCOUNTER 2021-05-04 01:56 | Outpatient (CLI) | payer MEDICAID, SELFPAY ==
--- NOTE | 2021-05-04 07:15 | DI.MRI_ITS ---
Exam(s) MR LOWER JOINT RT WO EXAM: MR LOWER JOINT RT WO CLINICAL HISTORY: Talus OCD,rt ankle pain, m25.571 TECHNIQUE: Multiplanar multisequence MRI was performed without intravenous contrast. COMPARISON: CR XR ANKLE RT COMPLETE from 04/19/2021 FINDINGS: BONES/JOINTS: No fracture or contusion pattern. There is a 0.6 x 0.5 cm osteochondral defect in the m edial aspect of the talar dome. There is associated marrow edema present. No loose body is identifi ed. There is very mild edema in the lateral aspect of the talar dome. The ankle mortise is maintain ed. No joint effusion is present. Nonspecific mild marrow edema seen in the lateral aspect of the lat eral malleolus. LIGAMENTS: The tibiofibular and calcaneofibular ligaments are intact. The talofibular ligaments are i ntact. The deltoid ligament is intact. The syndesmosis is unremarkable. Sinus tarsi is normal. MUSCULOTENDINOUS STRUCTURES: Achilles tendon: Unremarkable. Plantar fascia: Unremarkable. Anterior Extensor tendons: Unremarkable. Posterior Tibialis: Unremarkable. Flexor Digitorum longus: Unremarkable. Flexor Hallucis longus: Unremarkable. Peroneus longus: Unremarkable. Peroneus brevis:Unremarkable. SOFT TISSUES: Unremarkable. OTHER FINDINGS: None. IMPRESSION: 1. 0.6 x 0.5 cystic lesion in the medial aspect of the talar dome. There is mild surrounding edema. The findings may represent an osteochondral defect. No loose body is seen in the joint space. 2. No tendon or ligament tear. DATA REPOSITORY:
== END 2021-05-04 02:16 ==
PROVIDERS: PCP Nurse Practitioner; Visit Provider Student in an Organized Health Care Education/Training Program
DX: M89.9 Disorder of bone, unspecified (principal); M94.9 Disorder of cartilage, unspecified; M25.571 Pain in right ankle and joints of right foot
CPT/HCPCS: 73721

== ENCOUNTER 2021-05-09 02:24 | Outpatient (CLI) | payer MEDICAID, SELFPAY ==
[2021-05-09 10:17] LABS: Source Nasal/Nares
[2021-05-09 15:47] LABS: COVID-19 PCR Negative (Negative)
== END 2021-05-09 02:25 | disposition home or self-care (01) ==
LOC: LBO 02:25
PROVIDERS: Student in an Organized Health Care Education/Training Program; PCP Nurse Practitioner; Visit Provider Student in an Organized Health Care Education/Training Program
DX: Z20.822 Contact with and (suspected) exposure to COVID-19 (principal); Z01.818 Encounter for other preprocedural examination
CPT/HCPCS: 87635

== ENCOUNTER 2021-05-11 05:57 | Day surgery (SDC) | payer MEDICAID, SELFPAY ==
[2021-05-11] VITALS (10 sets, daily range): BP systolic 116–155; BP diastolic 77–99; PULSE 63–82; RESP 12–20; TEMP 36.3–36.6; O2SAT 97–100; BMI 27.5
--- NOTE | 2021-05-11 06:49 | W.ANESPRE ---
General Info Date of Service Date Performed: 05/11/21 Height: 5 ft 10 in Weight: 87 kg Body Mass Index (BMI): 27.5 Surgical Procedure: Operation Date: 05/11/21 08:10 Proposed Procedure Side Surgeon p Ankle Arthroscopy w/Talus microfracture vs. retrograde drilling Left Glenroy Hernandez MD Meds Allergies and Home Medications Allergies Allergy/AdvReac Type Severity Reaction Status Date / Time No Known Allergies Allergy Verified 05/11/21 06:20 Home Medication Medication Instructions Recorded cyanocobalamin (vitamin B-12) 1,000 mcg PO DAILY 04/19/21 1,000 mcg tablet atorvastatin 40 mg tablet 40 mg PO QPM #90 tab 04/24/21 lisinopril 40 mg tablet 40 mg PO DAILY #90 tab 04/24/21 naproxen 250 mg tablet 250 - 500 mg PO BID PRN #40 tab 05/11/21 oxycodone 5 mg tablet 5 - 10 mg PO Q4H PRN #14 tab MDD 05/11/21 30 mg Current Visit Medications: Current Medications Generic Name Dose Route Start Last Admin Trade Name Freq PRN Reason Stop Dose Admin Ringer's Solution 1,000 mls @ 100 mls/hr 05/11/21 06:00 IV 06/09/21 23:59 INFUSION BASIL Cefazolin Sodium/Dextrose 2 gm in 50 mls @ 100 mls/hr 05/11/21 06:00 Ancef Duplex IVPB 05/11/21 16:00 PREOP BASIL IV Miscellaneous Supplies 1 each 05/11/21 06:00 Iv Access IV 06/09/21 23:59 DIRECTED BASIL Sodium Chloride 0 ml 05/11/21 06:00 Normal Saline Flush 10 Ml Syr IV 06/09/21 23:59 PRN PRN Sodium Chloride 0 ml 05/11/21 06:00 Normal Saline 10 Ml Vial IJ 06/09/21 23:59 DIRECTED PRN Sterile Water 0 ml 05/11/21 06:00 Water,Injection,Sterile 10 Ml Vial IJ 06/09/21 23:59 DIRECTED PRN PFSH Active Problems Active Problems: Problem Status Onset Code GERD (gastroesophageal reflux disease) K21.9 Elevated LFTs R94.5 Fatty liver K76.0 Benign esophageal stricture K22.2 Tobacco dependence F17.200 Pulmonary nodule R91.1 EtOH dependence F10.20 Anxiety F41.9 Hypertension I10 Numerous moles D22.9 Osteoarthritis of left knee M17.12 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 History of left inguinal hernia repair (~04/12/20) Hx of elbow surgery left Hx of foot surgery left S/P dilatation of esophageal stricture dilation at [facility] on as as needed basis S/P left inguinal hernia repair Once as a child, and once in adulthood. Tobacco Smoking/Tobacco Use Status: Current every day Tobacco Type: cigarettes Smoking packs per day: 1 Smoking cigarettes per day: 20.0 Years smoked: 35 Smoking pack-years: 35.00 Passive smoking exposure: Yes Second hand exposure: Yes Alcohol Alcohol Intake: current Alcohol intake frequency: a few times a month Alcohol type: beer Substance Use Substance use: Occasionally Substance use type: marijuana Vital Signs and Lab Results Vital Signs Most Recent Vital Signs in EMR: Most Recent Vital Signs Temp Pulse Resp BP Pulse Ox 36.5 C 70 16 155/99 H 97 05/11/21 06:10 05/11/21 06:10 05/11/21 06:10 05/11/21 06:10 05/11/21 06:10 Lab Results Blood Type / Crossmatch: No Data to Display Complete Blood Count: No Data to Display Complete Metabolic Panel: No Data to Display Liver Function Panel: No Data to Display Coagulation Panel: No Data to Display Cardiac Panel: No Data to Display Arterial Blood Gas: No Data to Display Venous Blood Gas: No Data to Display Pancreas Panel: No Data to Display Thyroid Panel: No Data to Display Infectious Disease: Coronavirus (COVID-19)(PCR) Negative (Negative) 05/09/21 08:45 05/09/21 Coronavirus 2019 Source Nasal/Nares 05/09/21 08:45 05/09/21 Blood Cultures: No Data to Display Toxicology Panel: No Data to Display Anesthesia Assessment and Plan Anesthesia History Personal History: No History of Anesthesia Complications Family History: No Family History of Anesthesia Complications Exercise Tolerance Exercise Tolerance: Metabolic Equivalents>4 Pertinent Negatives Pertinent Negatives: No Symptoms of GERD, No Major Cardiovascular Symptoms or Complaints, No Major Pulmonary Symptoms or Complaints and No History of CVA/TIA Cardiac & Pulmonary Exam Cardiac Exam: Normal S1/S2 Heart Sounds Pulmonary Exam: Clear Bilateral Breath Sounds Implantable Cardiac Device Does patient have a Pacemaker or an ICD?: No Airway Exam Known Difficult Airway: No Mallampati Class: 2 Mouth Opening: Normal (> 3cm) Thyromental Distance: Greater than 3 cm Neck Range of Motion: Full ROM Neck Circumference: Normal Teeth Condition: Generalized Poor Dentition ASA Classification ASA Score: ASA 2 Emergency Case?: No NPO Status NPO Status: NPO Clears >2 hours, Solids >8 hours Anesthesia Plan Resuscitation Status: Full Code Anesthesia Technique: Spinal Anesthesia Airway Planned: Natural Airway Pain Management: Surgeon and patient request nerve block Monitors Used: Standard Monitors
[2021-05-11] MEDS: Lactated Ringers 1,000 ML 100 ML IV ×2 (07:00→10:16)
[2021-05-11] MEDS: ceFAZolin 2 GM/50 ML BAG IVPB (08:14)
--- NOTE | 2021-05-11 09:23 | W.ANESNERVE ---
Nerve Block Single Injection Procedure Date and Time Date Performed: 05/11/21 Procedure Start: 07:33 Location Where Procedure Performed Procedure Location: Day Surgery Unit Reason Performed: Postoperative Analgesia Requesting Provider: Glenroy Hernandez Timeout Performed Timeout Performed: Yes Monitoring Used ECG, Blood Pressure and SpO2 Sterility Sterility: Hand Hygiene, Surgical Cap, Surgical Mask, Sterile Gloves, Eye Protection and Chlorhexidine Sedation Given During Procedure Sedation Given (Indicate Dose Given): Versed IV Dose:: 2 mg Patient Mental Status Patient Mental Status: Sedate with meaningful communication Nerve Block 1st Nerve Block: Laterality: Left Block Type: Adductor Canal Needle / Catheter Used: 100mm SonoPlex II Local Anesthetic Bolus (Indicate Dose Given): Lidocaine used for local infiltration of skin, Injected in 3-5ml increments after negative blood aspiration, Bupivacaine 0.5% Dose:: 7 ml and Exparel Dose:: 5 ml Additives (Indicate Dose Given): Normal Saline Ultrasound: Sterile probe cover and gel used Ultrasound Image Saved?: Yes Nerve Stimulator: Not Used Paresthesia: None Procedure Tolerated: No Complications and Patient tolerated well Procedure Outcome: Successful Performed By: Cedric Jack 2nd Nerve Block: Laterality: Left Block Type: Popliteal Sciatic Needle / Catheter Used: 100mm SonoPlex II Local Anesthetic Bolus (Indicate Dose Given): Lidocaine used for local infiltration of skin, Injected in 3-5ml increments after negative blood aspiration, Bupivacaine 0.5% Dose:: 10 ml and Exparel Dose:: 10 ml Additives (Indicate Dose Given): None Ultrasound: Sterile probe cover and gel used Ultrasound Image Saved?: Yes Nerve Stimulator: Not Used Paresthesia: None Procedure Tolerated: No Complications and Patient tolerated well Procedure Outcome: Successful Performed By: Cedric Jack
--- NOTE | 2021-05-11 09:28 | PDOC.DSDIS_ITS ---
Discharge Plan Disposition Patient Disposition: HOME Condition: Stable Discharge Details Reason For Visit: Left ankle surgery Attending Provider: Glenroy Hernandez Primary Care Provider: Eileen De La Cruz Home Meds and New Rx's Prescriptions: New naproxen 250 mg tablet 250 - 500 mg PO BID PRNQty: 40 0RF Rx Instructions: take with a meal oxycodone 5 mg tablet 5 - 10 mg PO Q4H MDD 30 mg PRN (Reason: moderate to severe pain) Qty: 14 0RF Continued cyanocobalamin (vitamin B-12) 1,000 mcg tablet 1,000 mcg PO DAILY 0RF atorvastatin 40 mg tablet 40 mg PO QPM Qty: 90 4RF lisinopril 40 mg tablet 40 mg PO DAILY Qty: 90 4RF Discharge Instructions Additional Instructions: Surgery: Left ankle arthroscopy with talus microfracture Activity: Protected weightbearing (less than 50%) with crutches for 6 weeks. Recommend ice and elevation to minimize swelling discomfort. Please perform daily motion exercises about foot and ankle to prevent stiffness. A physical therapy prescription will be provided separately in the office at follow-up if needed. Prescriptions: Aspirin 81 mg take 1 daily to prevent a blood clot for 2 weeks Naproxen 250 mg take 1-2 every 12 hours with a meal as needed for moderate pain Oxycodone 5 mg take 1-2 every 4-6 hours as needed for severe pain You may use [id number] Tylenol (acetaminophen) as needed for mild pain. These pain medications may be taken all at once or in different combinations as needed. Also, recommend Colace (docusate) as a stool softener as surgery and pain medicine cause constipation. Dressings: Leave dressing in place for 3 days. May then remove and leave open to air or cover incisions with Band-Aids. May shower after 5 days. Follow-up: 10-[address] Hernandez Let us know right away if you develop any redness, drainage, fevers, chest pain, or trouble breathing. Do not drink alcohol or drive for at least 24 hours after anesthesia. Please call the office during business hours with any questions or concerns. Referrals: Glenroy Hernandez MD [ [facility] STAFF PHYSICIAN] - Discharge Orders Discharge Orders: Discharge Order (Routine); Ordered 05/11/21 Ordered By: Glenroy Hernandez DS: Diagnosis Discharge Diagnosis (1) Osteochondral lesion of talar dome: Status: Acute
--- NOTE | 2021-05-11 09:33 | ROE_ITS ---
Date of service: 05/11/21 Time of Service: 08:00 Operative Note Operative Note DATE OF PROCEDURE: 05/11/21 PRE-OP DIAGNOSIS: Left ankle talus osteochondral lesion POST-OP DIAGNOSIS: same PROCEDURE: Left ankle arthroscopy with talus microfracture, CPT# 64335 SURGEON: Glenroy Hernandez AD OPERATIONS ASSOCIATE: Cleo Mcneill ANESTHESIA TYPE: General LMA/ETT and Primary Nerve Block Refer to Anesthesia Record ESTIMATED BLOOD LOSS: 5 TOURNIQUET TIME: 0 COMPLICATIONS: None Patient was transported to: PACU Patient's condition: stable Indications: Please see complete medical record for details. Findings: Medial talar dome osteochondral lesion with unstable cartilage flaps and underlying bone cyst Procedure Description: In the operating room, spinal anesthesia was induced. The patient was positioned supine on the operating room table. All bony prominences were well- padded. Preoperative antibiotics were administered. The left ankle was prepped and draped in the usual sterile fashion. The correct patient, procedure, and side of the procedure were all verified prior to incision. Through the anteromedial soft spot the ankle was insufflated using 30 cc of normal saline. With the ankle in plantarflexion and inversion the superficial peroneal nerve was marked anterior laterally. Using a zohra and spread technique the anterior medial and anterolateral portals were established with the ankle in dorsiflexion relaxing the anterior capsule. A diagnostic ankle arthroscopy was performed with mild anterior medial lateral synovitis. There is mild tibiotalar joint space narrowing. The overlying medial talus central and adjacent to the medial clear space shoulder cartilage initially appeared intact but on probing was immediately unstable. Curettes were used to debride unstable cartilage flaps and establish vertical rodriguez about the lesion. The mechanical shaver was used to remove loose cartilage debris and excise anterior synovitis. Curved microfracture awl's were then used to puncture the subchondral plate of working around the lesion as part of the microfracture bone marrow stimulation technique. Suction was turned off confirming bleeding from the puncture sites. Care was taken to alternate viewing working anteromedial anterolateral to confirm appropriate unstable cartilage resection, vertical rodriguez, and completeness of microfracture. All loose bodies and synovitis were confirmed removed. Arthroscopic fluid was drained and irrigated and drained again until there was a clear effluent. The portal sites were closed using 3-0 nylon. Incisions were covered with Xeroform, 4 4 gauze, ankle wrapped in sterile soft roll and a 4 inch Silas wrap. The patient awoke from anesthesia without complication and was transferred to the recovery room in a stable condition.
[2021-05-11] MEDS: fentaNYL 100 MCG/2 ML VIAL IVP ×2 (10:01→10:15)
[2021-05-11] MEDS: LORazepam 2 MG/ML VIAL 0.5 MG IVP (10:05)
[2021-05-11] MEDS: Normal Saline 10 ML VIAL IJ (10:30)
[2021-05-11] MEDS: HYDROmorphone 2 MG/ML VIAL IVP (10:30)
[2021-05-11] MEDS: oxyCODONE 5 MG TAB PO (10:59)
--- NOTE | 2021-05-11 13:54 | W.ANESPOSTOP ---
Postoperative Evaluation Date, Time and Location Date Performed: 05/11/21 Time Performed: 11:25 Patient Location: Day Surgery Unit Vital Signs Most Recent Imported Vital Signs: Most Recent Vital Signs Temp Pulse Resp BP Pulse Ox 36.3 C L 77 16 124/97 H 97 05/11/21 11:21 05/11/21 11:21 05/11/21 11:21 05/11/21 11:21 05/11/21 11:21 Pain Score Most Recent Pain Score: Most Recent Pain Score Pain Level 4 05/11/21 11:21 Assessment Mental Status: Awake (Alert & Oriented to Patient Baseline) Airway and Respiratory Function: Patent airway with normal (patient baseline) respiratory exam Cardiovascular Function: Hemodynamically Stable Hydration Status: Adequately Hydrated Nausea & Vomiting: No Nausea or Vomiting Pain: Pain is tolerable per patient Peripheral Nerve Block: Regional nerve block not resolved at time of post operative discharge
== END 2021-05-11 12:00 | disposition home or self-care (01) ==
PROVIDERS: PCP Nurse Practitioner; Visit Provider Student in an Organized Health Care Education/Training Program
PROC: (CPT 29891; principal; 2021-05-11 08:00)
DX: M19.072 Primary osteoarthritis, left ankle and foot (principal); M65.872 Other synovitis and tenosynovitis, left ankle and foot; K76.0 Fatty (change of) liver, not elsewhere classified; F10.20 Alcohol dependence, uncomplicated; F17.210 Nicotine dependence, cigarettes, uncomplicated; J44.9 Chronic obstructive pulmonary disease, unspecified
CPT/HCPCS: 29891; 76942; J0690; J1100; J1885; J2060; J2250; J2405; J2704; J3010

== ENCOUNTER → 2021-06-21 14:42 | Outpatient (BNVA) | payer MEDICARE, MEDICAID, SELFPAY | PROVIDERS: PCP Nurse Practitioner; Referring Provider Nurse Practitioner; Visit Provider Student in an Organized Health Care Education/Training Program | DX: M89.9 Disorder of bone, unspecified (principal); M94.9 Disorder of cartilage, unspecified ==

== ENCOUNTER 2021-08-29 14:17 | Outpatient (CLI) | payer MEDICARE, MEDICAID, SELFPAY ==
--- NOTE | 2021-08-29 14:15 | DI.RAD_ITS ---
Exam(s) XR ANKLE LT COMPLETE EXAM: XR ANKLE LT COMPLETE CLINICAL HISTORY: LEFT ANKLE F/U. TECHNIQUE: 2D digital imaging was performed. COMPARISON: CR XR ANKLE RT COMPLETE from 04/19/2021 FINDINGS: 3 views No evidence of fracture or widening of the mortise. However, the abnormal lucency in the medial aspe ct of the talar domes again noted which is either a subarticular degenerative cyst or osteochondral d efect. The lateral aspect of the osteochondral defect is normal. Inferior calcaneal spur noted. IMPRESSION: DATA REPOSITORY: RADIATION DOSE DELIVERED:
== END 2021-08-29 14:18 | disposition home or self-care (01) ==
LOC: DIORS 14:18
PROVIDERS: PCP Nurse Practitioner; Referring Provider Nurse Practitioner; Visit Provider Student in an Organized Health Care Education/Training Program
DX: M89.9 Disorder of bone, unspecified (principal); M94.9 Disorder of cartilage, unspecified
CPT/HCPCS: 99214; 73610

== ENCOUNTER 2021-09-06 02:36 | Outpatient (CLI) | payer MEDICARE, MEDICAID, SELFPAY ==
[2021-09-06 12:16] LABS: Source Nasal/Nares
[2021-09-06 17:09] LABS: COVID-19 PCR Negative (Negative)
== END 2021-09-06 02:37 | disposition home or self-care (01) ==
LOC: LBO 02:36
PROVIDERS: Student in an Organized Health Care Education/Training Program; PCP Nurse Practitioner; Visit Provider Student in an Organized Health Care Education/Training Program
DX: Z20.822 Contact with and (suspected) exposure to COVID-19 (principal); Z01.818 Encounter for other preprocedural examination
CPT/HCPCS: 87635

== ENCOUNTER 2021-09-08 09:22 | Day surgery (SDC) | payer MEDICARE, MEDICAID, SELFPAY ==
[2021-09-08] VITALS (9 sets, daily range): BP systolic 92–151; BP diastolic 62–97; PULSE 47–69; RESP 12–19; TEMP 36.3–36.7; O2SAT 93–97; BMI 27.2
--- NOTE | 2021-09-08 06:19 | W.ANESPRE ---
General Info Date of Service Date Performed: 09/08/21 Height: 5 ft 10 in Weight: 86.183 kg Body Mass Index (BMI): 27.2 Surgical Procedure: Operation Date: 09/08/21 11:10 Proposed Procedure Side Surgeon p Ankle Arthroscopy w/Talus Microfracture Glenroy Hernandez MD Meds Allergies and Home Medications Allergies Allergy/AdvReac Type Severity Reaction Status Date / Time No Known Allergies Allergy Verified 09/08/21 09:44 Home Medication Medication Instructions Recorded cyanocobalamin (vitamin B-12) 1,000 mcg PO DAILY 04/19/21 1,000 mcg tablet atorvastatin 40 mg tablet 40 mg PO QPM #90 tabs 04/24/21 lisinopril 40 mg tablet 40 mg PO DAILY #90 tabs 04/24/21 Current Visit Medications: Current Medications Generic Name Dose Route Start Last Admin Trade Name Freq PRN Reason Stop Dose Admin Ringer's Solution 1,000 mls @ 30 mls/hr 09/08/21 06:00 IV 10/07/21 23:59 INFUSION BASIL Cefazolin Sodium/Dextrose 2 gm in 50 mls @ 100 mls/hr 09/08/21 06:00 Ancef Duplex IVPB 10/07/21 23:59 PREOP BASIL IV Miscellaneous Supplies 1 each 09/08/21 06:00 Iv Access IV 10/07/21 23:59 DIRECTED BASIL Sodium Chloride 0 ml 09/08/21 06:00 Normal Saline Flush 10 Ml Syr IV 10/07/21 23:59 PRN PRN Sodium Chloride 0 ml 09/08/21 06:00 Normal Saline 10 Ml Vial IJ 10/07/21 23:59 DIRECTED PRN Sterile Water 0 ml 09/08/21 06:00 Water,Injection,Sterile 10 Ml Vial IJ 10/07/21 23:59 DIRECTED PRN PFSH Active Problems Active Problems: Problem Status Onset Code GERD (gastroesophageal reflux disease) K21.9 Elevated LFTs R94.5 Fatty liver K76.0 Benign esophageal stricture K22.2 Tobacco dependence F17.200 Pulmonary nodule R91.1 EtOH dependence F10.20 Anxiety F41.9 Hypertension I10 Numerous moles D22.9 Osteoarthritis of left knee M17.12 Contracture of left elbow M24.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 History of left inguinal hernia repair (~04/12/20) History of tooth extraction 09/06/21 x5 top teeth removed. Hx of elbow surgery left Hx of foot surgery left S/P dilatation of esophageal stricture dilation at [facility] on as as needed basis S/P left inguinal hernia repair Once as a child, and once in adulthood. Tobacco Smoking/Tobacco Use Status: Current every day Tobacco Type: cigarettes Smoking packs per day: 1 Smoking cigarettes per day: 20.0 Years smoked: 35 Smoking pack-years: 35.00 Passive smoking exposure: Yes Second hand exposure: Yes Alcohol Alcohol Intake: current Alcohol intake frequency: a few times a month Alcohol type: beer Substance Use Substance use: Occasionally Substance use type: marijuana Vital Signs and Lab Results Vital Signs Most Recent Vital Signs in EMR: Temp Pulse Resp BP Pulse Ox 36.7 C 69 19 151/97 H 97 09/08/21 09:36 09/08/21 09:36 09/08/21 09:36 09/08/21 09:36 09/08/21 09:36 Lab Results Blood Type / Crossmatch: No Data to Display Complete Blood Count: No Data to Display Complete Metabolic Panel: No Data to Display Liver Function Panel: No Data to Display Coagulation Panel: No Data to Display Cardiac Panel: No Data to Display Arterial Blood Gas: No Data to Display Venous Blood Gas: No Data to Display Pancreas Panel: No Data to Display Thyroid Panel: No Data to Display Infectious Disease: Coronavirus (COVID-19)(PCR) Negative (Negative) 09/06/21 10:24 Coronavirus 2019 Source Nasal/Nares 09/06/21 10:24 Blood Cultures: No Data to Display Toxicology Panel: No Data to Display Anesthesia Assessment and Plan Anesthesia History Personal History: No History of Anesthesia Complications Family History: No Family History of Anesthesia Complications Exercise Tolerance Exercise Tolerance: Metabolic Equivalents>4 Cardiac & Pulmonary Exam Cardiac Exam: Normal S1/S2 Heart Sounds Pulmonary Exam: Clear Bilateral Breath Sounds Implantable Cardiac Device Does patient have a Pacemaker or an ICD?: No Airway Exam Known Difficult Airway: No Mallampati Class: 2 Mouth Opening: Normal (> 3cm) Thyromental Distance: Greater than 3 cm Neck Range of Motion: Full ROM Neck Circumference: Normal Teeth Condition: Generalized Poor Dentition ASA Classification ASA Score: ASA 3 Emergency Case?: No NPO Status NPO Status: NPO Clears >2 hours, Solids >8 hours Anesthesia Plan Resuscitation Status: Full Code Anesthesia Technique: General Anesthesia Airway Planned: Endotracheal Tube Pain Management: Surgeon and patient request nerve block Monitors Used: Standard Monitors Preoperative Comments:: 56 yo male for ankle arthroscopy. denies major health history change since his last. Sig PMHx: GERD, EtOH abuse/fatty liver, anxiety, HTN, COPD, eso stricture/dilations in the past. previous Anes: - spinal - converted to GA (no airway noted). - easy mask, mac 4 grade 4 (grade 2 with pressure).
[2021-09-08] MEDS: Lactated Ringers 1,000 ML 30 ML IV (09:51)
--- NOTE | 2021-09-08 10:27 | W.ANESNERVE ---
Nerve Block Single Injection Procedure Date and Time Date Performed: 09/08/21 Procedure Start: 10:20 Location Where Procedure Performed Procedure Location: Day Surgery Unit Reason Performed: Postoperative Analgesia Requesting Provider: Glenroy Hernandez Timeout Performed Timeout Performed: Yes Monitoring Used ECG, Blood Pressure and SpO2 Sterility Sterility: Hand Hygiene, Surgical Cap, Surgical Mask, Sterile Gloves and Chlorhexidine Sedation Given During Procedure Sedation Given (Indicate Dose Given): Versed IV Dose:: 2 mg Patient Mental Status Patient Mental Status: Awake Nerve Block 1st Nerve Block: Laterality: Right Block Type: Popliteal Sciatic Needle / Catheter Used: 100mm SonoPlex II Local Anesthetic Bolus (Indicate Dose Given): Lidocaine used for local infiltration of skin, Injected in 3-5ml increments after negative blood aspiration and Bupivacaine 0.375% (0.33%) Dose:: 20 mL Additives (Indicate Dose Given): Precedex Dose:: 53 mcg Ultrasound: Sterile probe cover and gel used Ultrasound Image Saved?: Yes Nerve Stimulator: Not Used Paresthesia: Right Paresthesia Duration: Transient Procedure Tolerated: No Complications Procedure Outcome: Successful Performed By: Michael Lugo 2nd Nerve Block: Laterality: Right Block Type: Adductor Canal Needle / Catheter Used: 100mm SonoPlex II Local Anesthetic Bolus (Indicate Dose Given): Lidocaine used for local infiltration of skin, Injected in 3-5ml increments after negative blood aspiration and Bupivacaine 0.375% (0.33%) Dose:: 10 mL Additives (Indicate Dose Given): Precedex Dose:: 26 mcg Ultrasound: Sterile probe cover and gel used Ultrasound Image Saved?: Yes Nerve Stimulator: Not Used Paresthesia: None Procedure Tolerated: No Complications Procedure Outcome: Successful Performed By: Michael Lugo
[2021-09-08] MEDS: ceFAZolin 2 GM/50 ML BAG IVPB (10:39)
[2021-09-08] MEDS: EPINEPHrine 30 MG/30 ML VIAL (11:28)
--- NOTE | 2021-09-08 12:05 | W.PM.OP ---
Operative Note Operative Note DATE OF PROCEDURE: 09/08/21 PRE-OP DIAGNOSIS: Right ankle talus osteochondral lesion POST-OP DIAGNOSIS: same PROCEDURE: Right ankle arthroscopy with talus microfracture, CPT# 79503 SURGEON: Glenroy Hernandez LONG TERM CARE PHARMACIST: Cleo Mcneill ANESTHESIA TYPE: General LMA/ETT and Primary Nerve Block Refer to Anesthesia Record ESTIMATED BLOOD LOSS: 5 TOURNIQUET TIME: 0 COMPLICATIONS: None Patient was transported to: PACU Patient's condition: stable Indications: Please see complete medical record for details. Findings: Medial talar dome osteochondral lesion with unstable cartilage flaps and underlying bone cyst that extended into the medial gutter Procedure Description: In the operating room, spinal anesthesia was induced. The patient was positioned supine on the operating room table. All bony prominences were well-padded. Preoperative antibiotics were administered. The right ankle was prepped and draped in the usual sterile fashion. The correct patient, procedure, and side of the procedure were all verified prior to incision. Through the anteromedial soft spot the ankle was insufflated using 20 cc of normal saline. With the ankle in plantarflexion and inversion the superficial peroneal nerve was marked anterior laterally. Using a zohra and spread technique the anterior medial and anterolateral portals were established with the ankle in dorsiflexion relaxing the anterior capsule. A diagnostic ankle arthroscopy was performed with mild anterior medial lateral synovitis. There was mild tibiotalar joint space narrowing and moderate anterior synovitis, which was excised carefully with the mechanical shaver. The overlying central medial talus adjacent to the shoulder cartilage was suspicious looking with some irregular appearing flaps. On probing the cartilage was quite unstable and readily displaced from around the lesion bed. The mechanical shaver was carefully used to remove all cartilage loose bodies. Curettes were used to debride unstable cartilage rim and establish vertical rodriguez as best possible about the lesion. There was no way to establish a vertical wall along the medial gutter shoulder. Curved microfracture awl's were then used to puncture the subchondral plate in multiple places working around the lesion bed as part of the microfracture bone marrow stimulation technique. There was significant soft bone at the central and shoulder aspects of the lesion likely over the more cystic aspects of the osteochondral lesion. Suction was turned off confirming bleeding from the puncture sites. Care was taken to alternate viewing working anteromedial anterolateral to confirm appropriate unstable cartilage resection and microfracture. All loose bodies and synovitis were confirmed removed. Arthroscopic fluid was drained and irrigated and drained again until there was a clear effluent. The portal sites were closed using 3-0 monocryl. Incisions were covered with Mastisol, Steri-Strips, Xeroform, 4x4 gauze, ankle wrapped in sterile soft roll and Silas bandage. The patient awoke from anesthesia without complication and was transferred to the recovery room in a stable condition.
--- NOTE | 2021-09-08 12:08 | W.PM.DSUDISC ---
Discharge Plan Disposition Patient Disposition: HOME Condition: Stable Discharge Details Reason For Visit: Right ankle surgery Attending Provider: Glenroy Hernandez Primary Care Provider: Eileen De La Cruz Home Meds and New Rx's Prescriptions: New aspirin 81 mg tablet,delayed release (DR/EC) 81 mg PO DAILY 14 Days Qty: 14 0RF oxycodone 5 mg tablet 5 - 10 mg PO Q4H MDD 30 mg PRN (Reason: moderate to severe pain) Qty: 18 0RF naproxen 250 mg tablet 250 - 500 mg PO BID PRNQty: 40 0RF Rx Instructions: take with a meal Continued cyanocobalamin (vitamin B-12) 1,000 mcg tablet 1,000 mcg PO DAILY atorvastatin 40 mg tablet 40 mg PO QPM Qty: 90 4RF lisinopril 40 mg tablet 40 mg PO DAILY Qty: 90 4RF Discharge Instructions Additional Instructions: Surgery: Right ankle arthroscopy with talus microfracture Activity: Protected weightbearing (less than 50%) with crutches for 6 weeks.? Recommend ice and elevation to minimize swelling discomfort.? Please perform range of daily motion exercises about foot and ankle to prevent stiffness.? A physical therapy prescription will be provided separately in the office at follow-up if needed. Prescriptions: Aspirin 81 mg take 1 daily to prevent a blood clot for 2 weeks Naproxen 250 mg take 1-2 every 12 hours with a meal as needed for moderate pain Oxycodone 5 mg take 1-2 every 4-6 hours as needed for severe pain You may use [id number]-wyhnsny Tylenol (acetaminophen) as needed for mild pain. These pain medications may be taken all at once or in different combinations as needed. Also, recommend Colace (docusate) as a stool softener as surgery and pain medicine cause constipation. Dressings: Leave dressing in place for 3 days.? May then remove and leave open to air or cover incisions with Band-Aids.? May shower after 5 days. Follow-up: 10-[address] Hernandez Let us know right away if you develop any redness, drainage, fevers, chest pain, or trouble breathing.? Do not drink alcohol or drive for at least 24 hours after anesthesia. Please call the office during business hours with any questions or concerns. Stand Alone Forms: Mauro Templeton (GODFREY) Discharge Orders Discharge Orders: Discharge Order (Routine); Ordered 09/08/21 Ordered By: Glenroy Hernandez DS: Diagnosis Discharge Diagnosis (1) Osteochondral lesion of talar dome: Status: Acute
--- NOTE | 2021-09-08 13:15 | W.ANESPOSTOP ---
Postoperative Evaluation Date, Time and Location Date Performed: 09/08/21 Time Performed: 13:15 Patient Location: Day Surgery Unit Vital Signs Most Recent Imported Vital Signs: Most Recent Vital Signs Temp Pulse Resp BP Pulse Ox 36.4 C L 48 L 17 137/88 97 09/08/21 13:03 09/08/21 13:03 09/08/21 13:03 09/08/21 13:03 09/08/21 13:03 Pain Score Most Recent Pain Score: Most Recent Pain Score Pain Level 0 09/08/21 13:03 Assessment Mental Status: Awake (Alert & Oriented to Patient Baseline) Airway and Respiratory Function: Patent airway with normal (patient baseline) respiratory exam Cardiovascular Function: Hemodynamically Stable Hydration Status: Adequately Hydrated Nausea & Vomiting: No Nausea or Vomiting Pain: Pt. Denies Any Pain Peripheral Nerve Block: Regional nerve block not resolved at time of post operative discharge
--- NOTE | 2021-09-14 11:35 | PDOC.ANES ---
Date of service: 09/14/21 Time of Service: 11:35 Anesthesia Note Report Anesthesia Note: I was called this afternoon by RADHA Booth at the orthopedics office, who forwarded a patient concern related to prolonged nerve block to me. Mr. Leger had preoperative adductor and popliteal nerve blocks for postoperative pain for his ankle arthroscopy. The patient is reporting his leg is still numb today per Emmy. I called the patient on his cell phone and he reported the same to me. He describes a sensory block, which he stated he's appreciative of due to still not being able to feel his ankle. He reports numbness starting about two inches below his knee and extending to his toes. He reports that he has full ROM and full motor. I requested he dorsi and plantar flex his foot and he states he was able to. He reports being able to move all his toes. He states being unable to feel discomfort, such as when he pinches his leg. I will reach out to his original provider and discuss the case. I did ask the patient to continue monitoring. I answered his questions and reminded him that he will be hearing from us soon.
== END 2021-09-08 13:42 | disposition home or self-care (01) ==
PROVIDERS: PCP Nurse Practitioner; Visit Provider Student in an Organized Health Care Education/Training Program
PROC: (CPT 29891; principal; 2021-09-08 11:00)
DX: M85.48 Solitary bone cyst, other site (principal); M94.8X7 Other specified disorders of cartilage, ankle and foot
CPT/HCPCS: 29891; 76942; J0690; J1100; J1885; J2250; J2405; J2704

== ENCOUNTER → 2021-09-18 10:00 | Outpatient (BNVA) | payer MEDICARE, MEDICAID, SELFPAY | PROVIDERS: PCP Nurse Practitioner; Referring Provider Nurse Practitioner; Visit Provider Nurse Practitioner Adult Health | DX: F39 Unspecified mood [affective] disorder (principal); Z87.820 Personal history of traumatic brain injury; I10 Essential (primary) hypertension; G31.84 Mild cognitive impairment of uncertain or unknown etiology | CPT/HCPCS: 99213 ==

== ENCOUNTER 2021-09-20 14:19 | Outpatient (CLI) | payer MEDICARE, MEDICAID, SELFPAY ==
--- NOTE | 2021-09-20 13:20 | DI.RAD_ITS ---
Exam(s) XR ANKLE RT COMPLETE EXAM: XR ANKLE RT COMPLETE CLINICAL HISTORY: right ankle pain TECHNIQUE: COMPARISON: CR XR ANKLE RT COMPLETE from 04/19/2021 CR XR ANKLE LT COMPLETE from 08/29/2021 FINDINGS: Three views were obtained. There is marked soft tissue swelling adjacent to the lateral malleolus. There is an apparent mildly displaced fracture of the tip of the lateral malleolus. No recent compar patricia films available. Ankle mortise is well maintained. IMPRESSION: Fracture of the tip of the lateral malleolus as described above. No additional fracture. RADIATION DOSE DELIVERED: Total DLP
== END 2021-09-20 14:20 | disposition home or self-care (01) ==
LOC: DIORS 14:20
PROVIDERS: PCP Nurse Practitioner; Referring Provider Nurse Practitioner; Visit Provider Student in an Organized Health Care Education/Training Program
DX: Z47.89 Encounter for other orthopedic aftercare; M94.9 Disorder of cartilage, unspecified; M89.9 Disorder of bone, unspecified; S82.831D Other fracture of upper and lower end of right fibula, subsequent encounter for closed fracture with routine healing; X58.XXXD Exposure to other specified factors, subsequent encounter
CPT/HCPCS: 99214; 73610

== ENCOUNTER 2021-10-18 14:26 | Outpatient (CLI) | payer MEDICARE, MEDICAID, SELFPAY ==
--- NOTE | 2021-10-18 13:45 | DI.RAD_ITS ---
Exam(s) XR ANKLE RT COMPLETE EXAM: XR ANKLE RT COMPLETE CLINICAL HISTORY: RIGHT FIBULA FX F/U. TECHNIQUE: 2D digital imaging was performed of the right ankle. Three images were obtained. AP, la teral and oblique views were obtained. COMPARISON: CR XR ANKLE RT COMPLETE from 04/19/2021 CR XR ANKLE RT COMPLETE from 09/20/2021 FINDINGS: BONES: There has been no change in alignment of the fracture of the tip of the lateral malleolus. Th ere is no new fracture or dislocation. There is a stable osteochondral lesion in the talar dome. No bony destructive lesion is seen. There is a small plantar calcaneal spur. JOINTS: The ankle mortise is normally aligned. SOFT TISSUE: Normal. IMPRESSION: Stable distal fibular fracture. DATA REPOSITORY: RADIATION DOSE DELIVERED:
== END 2021-10-18 14:27 | disposition home or self-care (01) ==
LOC: DIORS 14:26
PROVIDERS: PCP Nurse Practitioner; Visit Provider Student in an Organized Health Care Education/Training Program
DX: S82.831A Other fracture of upper and lower end of right fibula, initial encounter for closed fracture (principal); M94.9 Disorder of cartilage, unspecified; Z47.89 Encounter for other orthopedic aftercare; X58.XXXA Exposure to other specified factors, initial encounter
CPT/HCPCS: 99213; 73610

== ENCOUNTER 2021-12-06 15:16 | Outpatient (CLI) | payer MEDICARE, SELFPAY ==
--- NOTE | 2021-12-06 14:15 | DI.RAD_ITS ---
Exam(s) XR ANKLE RT COMPLETE EXAM: XR ANKLE RT COMPLETE CLINICAL HISTORY: RIGHT ANKLE F/U TECHNIQUE: COMPARISON: CR XR ANKLE RT COMPLETE from 09/20/2021 CR XR ANKLE RT COMPLETE from 10/18/2021 FINDINGS: Three views were obtained. The ankle mortise is well maintained. Previously noted osteochondral les ion of the medial talar dome is again noted and unchanged. Deformity of the tip of the fibula is aga in noted which may represent a healing or healed fracture. Ossific or calcific densities are also no hood adjacent to the tibial fibular joint on the mortise view only. No new significant findings. IMPRESSION: RADIATION DOSE DELIVERED: Total DLP
== END 2021-12-06 15:17 | disposition home or self-care (01) ==
LOC: DIORS 15:17
PROVIDERS: PCP Nurse Practitioner; Referring Provider Nurse Practitioner; Visit Provider Student in an Organized Health Care Education/Training Program
DX: S82.831D Other fracture of upper and lower end of right fibula, subsequent encounter for closed fracture with routine healing (principal); M94.9 Disorder of cartilage, unspecified; M89.9 Disorder of bone, unspecified; X58.XXXD Exposure to other specified factors, subsequent encounter
CPT/HCPCS: 73610

== ENCOUNTER → 2022-02-01 08:21 | Outpatient (BNVA) | payer MEDICARE, SELFPAY | PROVIDERS: PCP Nurse Practitioner Family; Referring Provider Student in an Organized Health Care Education/Training Program; Visit Provider Psychiatry & Neurology Neurology | DX: R20.0 Anesthesia of skin (principal); S82.891D Other fracture of right lower leg, subsequent encounter for closed fracture with routine healing; X58.XXXD Exposure to other specified factors, subsequent encounter; M79.604 Pain in right leg | CPT/HCPCS: 99215 ==

== ENCOUNTER → 2022-04-04 08:39 | Outpatient (BNVA) | payer MEDICARE, SELFPAY | PROVIDERS: PCP Nurse Practitioner Family; Referring Provider Nurse Practitioner Family; Visit Provider Student in an Organized Health Care Education/Training Program | DX: S84.91XA Injury of unspecified nerve at lower leg level, right leg, initial encounter (principal); X58.XXXA Exposure to other specified factors, initial encounter; Z47.89 Encounter for other orthopedic aftercare | CPT/HCPCS: 99213 ==

== ENCOUNTER → 2022-04-05 08:42 | Outpatient (BNVA) | payer MEDICARE, SELFPAY | PROVIDERS: PCP Nurse Practitioner Family; Referring Provider Nurse Practitioner Family; Visit Provider Psychiatry & Neurology Neurology | DX: M79.604 Pain in right leg (principal); M79.2 Neuralgia and neuritis, unspecified; S82.891D Other fracture of right lower leg, subsequent encounter for closed fracture with routine healing; X58.XXXD Exposure to other specified factors, subsequent encounter; F10.10 Alcohol abuse, uncomplicated | CPT/HCPCS: 99214 ==

== ENCOUNTER → 2022-05-31 11:19 | Outpatient (BNVA) | payer MEDICARE, SELFPAY | PROVIDERS: PCP Nurse Practitioner Family; Visit Provider Psychiatry & Neurology Neurology | DX: R20.8 Other disturbances of skin sensation (principal); M79.604 Pain in right leg; S82.891D Other fracture of right lower leg, subsequent encounter for closed fracture with routine healing; X58.XXXD Exposure to other specified factors, subsequent encounter | CPT/HCPCS: 99213 ==

== ENCOUNTER 2022-07-10 02:23 | Outpatient (CLI) | payer MEDICARE, SELFPAY ==
--- NOTE | 2022-07-10 07:00 | DI.CT_ITS ---
Exam(s) CT CHEST WO EXAM: CT CHEST WO CLINICAL HISTORY: 12 month follow up,F/U PULMONARY NODULE,R91.1. TECHNIQUE: Multi planar reconstructions were performed. CONTRAST MATERIAL: None COMPARISON: CT CT CHEST WO from 01/25/2021 FINDINGS: CHEST: LUNGS: The previously described 5 millimeter nodule in the superior segment of the right lower lobe r emains unchanged. Two smaller nodular densities subpleurally located in the right upper lobe are als o unchanged. There are no new significant focal right lung findings.. Small unchanged left lower lo be nodule again noted. There are also no new left lung focal findings. No pleural effusions on eith er side. MEDIASTINUM: There is no obvious new hilar nor new mediastinal adenopathy. No obvious axillary adeno mónica CARDIAC: Heart size is normal. There is no pericardial effusion.Caliber of the thoracic aorta is wit hin normal limits. VISUALIZED UPPER ABDOMEN:No new findings. OSSEOUS: No new significant osseous lesions.. IMPRESSION: 1. Continued stable pulmonary nodules, unchanged from 02/10/2020 and 01/25/2021. No new nodules and no pleural effusions. 2. No obvious new intrathoracic adenopathy RADIATION DOSE DELIVERED: 428.07mGy.cm Total DLP DATA REPOSITORY: All CT scans at this facility are submitted to the National Radiology Data Registry (NRDR) Dose Index Registry (DIR) with the [employer] (ACR). RADIATION OPTIMIZATION: All CT scans at this facility use at least one of these dose optimization te chniques: automated exposure control; mA and/or kV adjustment per patient size (includes targeted exa ms where dose is matched to clinical indication); or iterative reconstruction.
== END 2022-07-10 02:43 ==
LOC: DI 02:23
PROVIDERS: PCP Nurse Practitioner Family; Visit Provider Nurse Practitioner Family
DX: R91.1 Solitary pulmonary nodule (principal)
CPT/HCPCS: 71250

== ENCOUNTER 2022-08-22 02:39 | Outpatient (CLI) | payer MEDICARE, SELFPAY ==
[2022-08-22 12:12] LABS: HCT 42.4 % (40.0-50.0); HGB 14.4 g/dL (13.5-17.5); MCH 31.2 pg (27.0-33.0); MCV 92 fL (80-95); MPV 9.7 fL (8.0-11.0); Platelet Count 318 10^3/uL (130-400); RBC 4.61 10^6/uL (4.36-5.78); RDW 12.3 % (11.8-14.1); RDW-SD 41.8 fL; WBC 7.12 10^3/uL (4.4-10.8)
[2022-08-22 13:07] LABS: ALT 14 U/L (16-63); AST 14 U/L (15-37); Albumin 4.3 g/dL (3.4-5.0); Alkaline Phosphatase 52 U/L (46-116); Anion Gap 8.6 mmol/L (3-11); BUN 10 mg/dL (7-18); Bilirubin, Total 0.8 mg/dL (0.2-1.0); CO2 27.4 mmol/L (21.0-32.0); Calcium 9.7 mg/dL (8.5-10.1); Calculated LDL 133 mg/dL (<100); Chloride 104 mmol/L (98-107); Cholesterol 193 mg/dL (<200); Estimated GFR 88.33 (mL/min/1.73m2); Glucose 75 mg/dL (74-106); HDL Cholesterol 50 mg/dL (40-60); Potassium 4.5 mmol/L (3.5-5.1); Sodium 140 mmol/L (136-145); Total Protein 7.4 g/dL (6.4-8.2); Triglyceride 54 mg/dL (<150)
== END 2022-08-22 02:40 | disposition home or self-care (01) ==
LOC: LOS 02:39
PROVIDERS: PCP Nurse Practitioner Family; Visit Provider Nurse Practitioner Family
DX: Z00.00 Encounter for general adult medical examination without abnormal findings (principal); F10.20 Alcohol dependence, uncomplicated; F17.200 Nicotine dependence, unspecified, uncomplicated; F41.9 Anxiety disorder, unspecified; I10 Essential (primary) hypertension; K21.9 Gastro-esophageal reflux disease without esophagitis; K76.0 Fatty (change of) liver, not elsewhere classified; R91.1 Solitary pulmonary nodule; R94.5 Abnormal results of liver function studies; S84.91XA Injury of unspecified nerve at lower leg level, right leg, initial encounter; X58.XXXA Exposure to other specified factors, initial encounter
CPT/HCPCS: 36415; 80053; 80061; 85027

== ENCOUNTER 2023-04-05 15:01 | Outpatient (REF) | payer MEDICARE, SELFPAY | END 2023-04-05 15:02 | disposition home or self-care (01) | LOC: LBN 15:01 | PROVIDERS: PCP Nurse Practitioner Family; Visit Provider Nurse Practitioner Family | DX: L02.425 Furuncle of right lower limb; B08.4 Enteroviral vesicular stomatitis with exanthem | CPT/HCPCS: 87070; 87205 ==

== ENCOUNTER → 2023-07-04 03:39 | Outpatient (CLI) | payer MEDICARE, SELFPAY ==
--- NOTE | 2023-07-04 10:40 | DI.CTLCSR_ITS ---
Exam(s) CT CHEST LUNG CANCER SCREEN EXAM: CT CHEST LUNG CANCER SCREEN CLINICAL HISTORY: Screening for lung cancer,current smoker, f17.210. TECHNIQUE: Imaging Protocol: Low Dose Technique CONTRAST MATERIAL: None COMPARISON: CT CT CHEST WO from 07/10/2022 FINDINGS: CHEST: LUNGS: Previously described small bilateral lung nodules remain unchanged. Largest in the right lung is 7 x 3 mm and at the junction of the and posterior segment of the right upper lobe and superior se gment of the right lower lobe. Other smaller right lung nodular densities are also unchanged. Also no new left lung findings. There are no ominous pulmonary nodules. There are no confluent infiltrate s. No pleural effusions. MEDIASTINUM: There is no obvious hilar nor mediastinal adenopathy. CARDIAC: Heart size is normal. There is no pericardial effusion.Caliber of the thoracic aorta is wit hin normal limits. OTHER: OSSEOUS: No significant osseous lesions.. IMPRESSION: 1. Stable appearance of nodules previously described on CT scan of 07/10/2022. No new pulmonary nodu les nor pleural effusions nor infiltrates. 2. No new intrathoracic adenopathy. 3. Lung RADS Cat 2 - Benign Appearance / Behavior: Nodules with a very low likelihood of becoming a c linically active cancer due to size or lack of growth Lung-RADS 1.0 CATEGORIES: Category 0 - Prior chest CT exam(s) being located for comparison. Category 1 - Annual screening in 12 months. No nodules or definitely benign nodules. Category 2 - Annual screening in 12 months. Benign appearance. Nodules with low likelihood of becomin g active cancer. Category 3 - 6-month follow-up. Probably benign. Short-term follow-up suggested. Nodules with low lik elihood of becoming active cancer. Category 4A - 3-month follow-up and CT/PET if >8 mm in size. Suspicious finding. Findings which requi re additional testing. Category 4B - Findings which require additional testing and tissue sampling. Category 4X - Category 3 or 4 nodules with additional features or imaging findings that increases the suspicion of malignancy. Modifier S- Potentially clinically significant findings (non lung cancer) RADIATION DOSE DELIVERED: 83.57mGy.cm Total DLP DATA REPOSITORY: All CT scans at this facility are submitted to the National Radiology Data Registry (NRDR) Dose Index Registry (DIR) with the [employer] (ACR). RADIATION OPTIMIZATION: All CT scans at this facility use at least one of these dose optimization te chniques: automated exposure control; mA and/or kV adjustment per patient size (includes targeted exa ms where dose is matched to clinical indication); or iterative reconstruction.
== END ==
PROVIDERS: PCP Nurse Practitioner Family; Visit Provider Nurse Practitioner Family
DX: Z12.2 Encounter for screening for malignant neoplasm of respiratory organs (principal); F17.210 Nicotine dependence, cigarettes, uncomplicated
CPT/HCPCS: 71271

== ENCOUNTER 2023-07-26 15:22 | Outpatient (REF) | payer MEDICARE, SELFPAY | END 2023-07-26 15:23 | disposition home or self-care (01) | LOC: LBN 15:22 | PROVIDERS: PCP Nurse Practitioner Family; Visit Provider Physician Assistant | DX: L08.89 Other specified local infections of the skin and subcutaneous tissue; A49.01 Methicillin susceptible Staphylococcus aureus infection, unspecified site | CPT/HCPCS: 87070; 87205 ==

== ENCOUNTER 2023-08-20 04:41 | Outpatient (CLI) | payer MEDICARE, SELFPAY ==
[2023-08-20 12:24] LABS: BUN 6 mg/dL (7-18); Calcium 9.2 mg/dL (8.5-10.1); Chloride 103 mmol/L (98-107); Estimated GFR 87.78 (mL/min/1.73m2); Glucose 115 mg/dL (74-106); Potassium 4.3 mmol/L (3.5-5.1); Sodium 138 mmol/L (136-145)
== END 2023-08-20 04:42 | disposition home or self-care (01) ==
LOC: LBO 04:41
PROVIDERS: PCP Nurse Practitioner Family; Visit Provider Nurse Practitioner Family
DX: I10 Essential (primary) hypertension (principal)
CPT/HCPCS: 36415; 80048

== ENCOUNTER → 2024-05-13 14:41 | Outpatient (BNVA) | payer MEDICARE, SELFPAY | PROVIDERS: PCP Nurse Practitioner Family; Referring Provider Nurse Practitioner Family; Visit Provider Psychiatry & Neurology Neurology | DX: S82.831D Other fracture of upper and lower end of right fibula, subsequent encounter for closed fracture with routine healing (principal); S84.91XD Injury of unspecified nerve at lower leg level, right leg, subsequent encounter; M79.604 Pain in right leg; X58.XXXD Exposure to other specified factors, subsequent encounter | CPT/HCPCS: 99215 ==

== ENCOUNTER → 2024-05-14 13:33 | Outpatient (BNVA) | payer MEDICARE, SELFPAY | PROVIDERS: PCP Nurse Practitioner Family; Referring Provider Nurse Practitioner Family; Visit Provider Podiatrist | DX: B07.0 Plantar wart (principal); M79.672 Pain in left foot | CPT/HCPCS: 17110 ==

== ENCOUNTER → 2024-06-01 14:43 | Outpatient (BNVA) | payer MEDICARE, SELFPAY | PROVIDERS: PCP Nurse Practitioner Family; Referring Provider Nurse Practitioner Family; Visit Provider Podiatrist | DX: B07.0 Plantar wart (principal); M79.672 Pain in left foot | CPT/HCPCS: 17110 ==

== ENCOUNTER 2024-06-30 01:04 | Outpatient (CLI) | payer MEDICARE, SELFPAY ==
--- NOTE | 2024-06-30 13:15 | DI.US_ITS ---
Exam(s) US AAA SCREENING EXAM: US AAA SCREENING CLINICAL HISTORY: screening for aaa, tobacco dependence,F17.200 COMPARISON: No exams were available for comparison FINDINGS: Abdominal Aorta: Proximal: 2.0 x 2.4 cm Mid: 1.8 x 2.0 cm Distal: 1.7 x 1.9 cm Iliacs: Right: 1.1 cm Left: 1.1 cm IMPRESSION: No evidence of abdominal aortic aneurysm. DATA REPOSITORY:
== END 2024-06-30 01:24 ==
LOC: DI 01:04
PROVIDERS: PCP Nurse Practitioner Family; Visit Provider Nurse Practitioner Family
DX: Z13.6 Encounter for screening for cardiovascular disorders (principal); F17.210 Nicotine dependence, cigarettes, uncomplicated
CPT/HCPCS: 76706

== ENCOUNTER 2024-07-24 00:27 | Outpatient (CLI) | payer MEDICARE, SELFPAY ==
--- NOTE | 2024-07-24 14:30 | DI.US_ITS ---
APPROVED REPORT EXAM: Comprehensive 2D, Doppler, and color-flow Echocardiogram Patient Location: Out-Patient Distribution Dispatcher: Mathieu Prieto RDCS (AE) Indications: Murmur Other Information Study Quality: Adequate Conclusion Normal left ventricular wall thickness and chamber size. Ejection fraction is 55 to 60%. Wall motion is normal Normal right ventricular size and function Both atria are normal in size There is no structural or hemodynamically significant valvular disease Wall motion Left Ventricle The left ventricle is normal size. The left ventricular systolic function is normal. The left ventricular ejection fraction is within the normal range. There is normal left ventricular wall thickness. There is normal LV segmental wall motion. There is no ventricular septal defect visualized. LVEF is 55-60%. Right Ventricle The right ventricle is normal size. The right ventricular systolic function is normal. Atria The left atrium size is normal. The right atrium size is normal. The interatrial septum is intact with no evidence for an atrial septal defect. Aortic Valve The aortic valve is normal in structure. Aortic valve is trileaflet. There is no aortic valvular stenosis. No aortic regurgitation is present. Mitral Valve The mitral valve is normal in structure. No evidence of mitral valve stenosis. There is no mitral valve regurgitation noted. Tricuspid Valve The tricuspid valve is normal in structure. There is no tricuspid valve stenosis. Trace tricuspid regurgitation. Pulmonic Valve The pulmonary valve is normal in structure. There is no pulmonic valvular stenosis. There is no pulmonic valvular regurgitation. Great Vessels The aortic root is normal in size. Ascending aorta is not well visualized. Aortic arch is not well visualized. IVC is normal in size and collapses >50% with inspiration. Pericardium There is no pericardial effusion. 2D Dimensions IVSD d PLAX 0.63 cm M: 0.6-1.2 Ao Root d 3.00 cm M: 3.1 - 3.7 LVPW d PLAX 0.62 cm M: 0.6 - 1.2 LVID d PLAX 5.57 cm M: 4.2 - 5.8 LVDs 3.87 cm M: 2.5 - 4.0 LV EF Teichholz 57.4 % FS 30.56 % LV EDV (Teich) 152.1 mL LV ESV (Teich) 64.8 mL Stroke Vol Index (Teich) 45.96 M-Mode TAPSE 2.42 cm (M/F) >1.7 Auto EF LV EDV A4C 115.6 mL LV EDV A2C 116.5 mL LV EDV BP 119.0 mL LV ESV A4C 55.4 mL LV ESV A2C 52.6 mL LV ESV BP 54.8 mL LVEF(%) A4C 52.1 % LVEF(%) A2C 54.9 % LVEF(%) BP 53.9 % LV SV A4C 60.2 ml LV SV A2C 63.9 ml LV SV BP 64.1 ml LV CO A4C 3.8 L/min LV CO A2C 4.1 L/min LV CO BP 3.9 L/min HR A4C 63.03 BPM HR A2C 63.84 BPM LV EDV Index (BP) LA Volume LA Length A4C 4.4 cm LA Length A2C 3.9 cm LA Area A4C s 8.60 cm2 LA Area A2C s 11.22 cm2 LA Vol A4C A-L 14.17 mL LA Vol A2C A-L 27.48 mL LA Vol Biplane A-L 21.1 mL LA Vol/BSA A4C A-L LA Vol/BSA A2C A-L LA Vol/BSA BP A-L 11.1 mL/m2 LA Vol A4C MOD 13.7 mL LA Vol A2C MOD 25.6 mL LA Vol BP MOD 19.8 mL RA Volume RA Area A4C 9.0 cm2 RA ESV A4C (A-L) 17.5mL RA Vol/BSA A4C A-L RA Length A4C 3.9 cm RA ESV A4C (MOD) 17.8mL LV Diastology MV E' medial 0.108 (>0.07 m/s) MV E Vmax 0.63 (0.4-1.3 m/s) MV E/E' MED 5.82 (<14) MV A Vmax 0.75 (0.4-1.3 m/s) MV E' lateral 0.134 (>0.1 m/s) E/A Ratio 0.8 MV E/E' LAT 4.70 (<14) MV E' Average 0.121 m/s MV E/E'(average) 5.20 Aortic Valve AoV Vmax 1.41 m/s LVOT Vmax 1.21 m/s AoV Peak Grad 7.9 mmHg LVOT Peak Grad 5.8 mmHg AoV Area (Vmax) 3.00 cm2 LVOT VTI 0.235 m AoV VTI 0.282 m LVOT Mean Grad 2.8 mmHg AoV Mean Ghanshyam. 0.97 m/s LVOT SV 82.04 mL AoV Mean Grad 4.3 mmHg LVOT Diam s 2.10 cm AoV Area (VTI) 2.91 cm2 AV Regurg Peak Gr. 7.90 mmHg Velocity Ratio 0.86 Mitral Valve MV DT 220 (160-240 msec) Pulmonary Valve RVOT Vmax 0.47 m/s RVOT Peak Gr. 0.9 mmHg RVOT VTI 0.095 m RVOT Mean Gr. 0.4 mmHg
--- NOTE | 2024-07-24 15:09 | DI.CTLCSR_ITS ---
Exam(s) CT CHEST LUNG CANCER SCREEN EXAM: CT CHEST LUNG CANCER SCREEN CLINICAL HISTORY: Screening for lung cancer,CURRENT SMOKER, F17.210. TECHNIQUE: Imaging Protocol: Low Dose Technique CONTRAST MATERIAL: None COMPARISON: CT CT CHEST LUNG CANCER SCREEN from 07/04/2023 CT chest of 07/10/2022 also reviewed. FINDINGS: CHEST: LUNGS: There is continued stability of the previously described small bilateral lung nodules, the largest again noted to be a 7 millimeter noncalcified nodule fissure related at the junction between the posterior aspect of the right upper lobe and superior segment of the right lower lobe. There are no new ominous pulmonary nodules. There are no new confluent infiltrates. No pleural effusions. MEDIASTINUM: There is no obvious hilar nor mediastinal adenopathy. CARDIAC: Heart size is normal. There is no pericardial effusion.Caliber of the thoracic aorta is within normal limits. OTHER: OSSEOUS: No significant osseous lesions.No fractures.. IMPRESSION: 1. Continued stable size and number of previously described lung nodules, largest measuring 7 mm (right lung). There are no new nodules and there are no pleural effusions nor infiltrates. 2. No obvious intrathoracic adenopathy. 3. Lung RADS Cat 2 - Benign Appearance / Behavior: Nodules with a very low likelihood of becoming a clinically active cancer due to size or lack of growth Lung-RADS 1.0 CATEGORIES: Category 0 - Prior chest CT exam(s) being located for comparison. Category 1 - Annual screening in 12 months. No nodules or definitely benign nodules. Category 2 - Annual screening in 12 months. Benign appearance. Nodules with low likelihood of becoming active cancer. Category 3 - 6-month follow-up. Probably benign. Short-term follow-up suggested. Nodules with low likelihood of becoming active cancer. Category 4A - 3-month follow-up and CT/PET if >8 mm in size. Suspicious finding. Findings which require additional testing. Category 4B - Findings which require additional testing and tissue sampling. Category 4X - Category 3 or 4 nodules with additional features or imaging findings that increases the suspicion of malignancy. Modifier S- Potentially clinically significant findings (non lung cancer) RADIATION DOSE DELIVERED: 27.77mGy.cm Total DLP DATA REPOSITORY: All CT scans at this facility are submitted to the National Radiology Data Registry (NRDR) Dose Index Registry (DIR) with the [employer] (ACR). RADIATION OPTIMIZATION: All CT scans at this facility use at least one of these dose optimization techniques: automated exposure control; mA and/or kV adjustment per patient size (includes targeted exams where dose is matched to clinical indication); or iterative reconstruction.
== END 2024-07-24 00:47 ==
LOC: DI 00:27
PROVIDERS: PCP Nurse Practitioner Family; Visit Provider Nurse Practitioner Family
DX: Z12.2 Encounter for screening for malignant neoplasm of respiratory organs (principal); R01.1 Cardiac murmur, unspecified; F17.210 Nicotine dependence, cigarettes, uncomplicated; R91.8 Other nonspecific abnormal finding of lung field
CPT/HCPCS: 71271; 93306

== ENCOUNTER 2024-08-10 02:12 | Outpatient (CLI) | payer MEDICARE, SELFPAY ==
[2024-08-10 13:07] LABS: ALT 22 U/L (16-63); AST 13 U/L (15-37); Albumin 4.4 g/dL (3.4-5.0); Alkaline Phosphatase 58 U/L (46-116); Anion Gap 8.5 mmol/L (3-11); BUN 11 mg/dL (7-18); Bilirubin, Total 0.8 mg/dL (0.2-1.0); CO2 25.5 mmol/L (21.0-32.0); CREATININE 0.9 mg/dL (0.70-1.30); Calcium 9.4 mg/dL (8.5-10.1); Chloride 101 mmol/L (98-107); Glucose 106 mg/dL (74-106); Potassium 4.7 mmol/L (3.5-5.1); Sodium 135 mmol/L (136-145); Total Protein 7.4 g/dL (6.4-8.2)
[2024-08-10 19:25] LABS: PSA, Screening 0.7 ng/mL (<=3.5)
== END 2024-08-10 02:13 | disposition home or self-care (01) ==
LOC: LOS 02:12
PROVIDERS: PCP Nurse Practitioner Family; Visit Provider Nurse Practitioner Family
DX: Z00.00 Encounter for general adult medical examination without abnormal findings (principal); I10 Essential (primary) hypertension; Z12.5 Encounter for screening for malignant neoplasm of prostate
CPT/HCPCS: 36415; 80053; 84153